=== PATIENT | female | born 1965 | race Caucasian/White ===

== ENCOUNTER 2024-05-07 14:41 | Observation (INO) | payer BC, SELFPAY ==
[2024-05-07] VITALS (7 sets, daily range): BP systolic 139–154; BP diastolic 77–87; PULSE 66–70; RESP 18–28; TEMP 36.5–37.1; O2SAT 90–93; BMI 37.8; BMI 37.2
--- NOTE | 2024-05-07 15:14 | ED_ITS ---
HPI - General Adult General Date Seen: 05/07/24 Chief complaint: Shortness of Breath/Dyspnea Stated complaint: Difficulty breathing Time Seen by Provider: 05/07/24 14:57 History of Present Illness HPI narrative: 59-year-old female presenting to the ER today with for shortness of breath. She is currently satting 96% on 1 L nasal cannula. According to records through [facility] link she has a past medical history including anxiety, depression, opiate dependency. She has a history of tobacco use (still smoking). She has a history of CHF, GERD, hypertension, spinal stenosis, opiate addiction and opiate use disorder (buying pills off the street) She had previously been living over the long-term in [place], [place]. Her regular primary care per provider is Dr. Wiseman in [place], [place]. She has a history of opiate addiction and apparently has been buying pills off the street. For the past 7 months she had been living with her sister, Luz. About 3 or 4 weeks ago she was kicked out of her sister's house because of her opiate use. She was homeless after that. Initially she says she was ?couch surfing? with family members. The patient's daughter says that for the 1st time in 5 years the patient contacted her daughter after she was kicked out. She had been estranged from her daughter for about 5 years. With her daughter's assistance, the patient has been able to find a new 1 bedroom apartment here in [place]. She moved in a few days ago. It sounds like the patient has been buying Suboxone off the street. She has been using Suboxone 8 mg sublingual tablets every day for the past couple of weeks to try to deal with her opiate cravings. They are working fairly well and she says she has not had any pills now in a few weeks. She is a smoker. She has a history of COPD, CHF, anxiety, depression. She has a dog, Dian, that she values. She does not want to leave her dog Dian. For the past 3 or 4 days she has been noticing increasing chest tightness, shortness of breath and a cough that is productive of some sputum(yellow/white. No blood). She has been getting increasingly short of breath. Also swelling in her legs. 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 She has been using her nebulizer many times per day for the past few days and is now out of nebs. She has also been using using her Spiriva many times per day thinking more Spiriva she uses, the better she would feel. No diarrhea. She has been constipated past couple of days. She has had a subjective fever. No vomiting. No abdominal pain. Related Data Home Medications ?Medication ?Instructions ?Recorded ?Confirmed aspirin 325 mg capsule 325 mg PO DAILY 05/07/24 05/07/24 atorvastatin 40 mg tablet (Lipitor) 40 mg PO DAILY 05/07/24 05/07/24 buspirone 10 mg tablet 10 mg PO TID 05/07/24 05/07/24 fluoxetine 20 mg capsule 20 mg PO DAILY 05/07/24 05/07/24 fluoxetine 40 mg capsule (Prozac) 40 mg PO DAILY 05/07/24 05/07/24 furosemide 20 mg tablet 20 mg PO DAILY 05/07/24 05/07/24 potassium chloride 20 mEq 20 meq PO DAILY 05/07/24 05/07/24 tablet,extended release(part/cryst) (Klor-Con M) propranolol 80 mg capsule,24 80 mg PO DAILY 05/07/24 05/07/24 hr,extended release Allergies Allergy/AdvReac Type Severity Reaction Status Date / Time No Known Drug Allergies Allergy Verified 05/07/24 15:05 [facility] Social History Smoking Status: Current every day smoker What tobacco products do you use: cigarettes Smoking packs per day: 0.2 Smoking cigarettes per day: 4.0 How often do you have a drink containing alcohol: never AUDIT-C Alcohol total score: 0 Non-prescribed substance use: denies use Exam Narrative: Exam Narrative: Primary Survey: A- patent. Speaking clearly. Phonation normal. She has some volitional stridorous breathing that resolved when I coached her about opening her airway B- breathing easily. Lung sounds clear and equal. She was placed on 1 L by nurses. I turned off her oxygen she maintained sats about 90-92% on room air. She does have coarse bilateral wheezes throughout all lung moody. C- no active bleeding. Blood pressure stable. Symmetric pulses and cap refill in 4 extremities. D- alert and oriented x3. GCS 15. No focal deficits. She is anxious Constitutional: Appears well-developed and well-nourished. Alert. Conversant. Non toxic. HENT: Head: Atraumatic. Nose: Nose normal. Mouth/Throat: Oral mucosa is clear and moist. no trismus. Pharynx normal. Tonsils symmetric. No tonsillar enlargement, erythema, or exudate. Eyes: Conjunctivae normal. EOM normal. Pupils equal, round, and reactive to light. No scleral icterus. Neck: Normal range of motion. Neck supple. No tracheal deviation present. Cardiovascular: Normal rate, regular rhythm. No gallop. No friction rub. No murmur heard. Symmetric radial artery pulses Pulmonary/Chest: She has increased work of breathing and is making some home wheezing noises from her upper airway check which I think are volitional or subconscious. With coaching they resolved. She is not in acute distress requiring BiPAP or immediate in today marti. She does have bilateral coarse wheezes in all lung moody that do not resolve you may clear upper upper airway. She has an occasional cough. She is producing small amounts of sputum that she is spitting into a tissue. Abdominal: Soft. Bowel sounds normal. No distension. No mass. No tenderness. No rebound. No guarding. No CVA tenderness Musculoskeletal: RUE: Normal range of motion. No tenderness. No deformity LUE: Normal range of motion. No tenderness. No deformity RLE: Normal range of motion. No edema. No tenderness. No deformity LLE: Normal range of motion. No edema. No tenderness. No deformity Lymph: No cervical adenopathy. Neurological: Alert and oriented to person, place, and time. Normal strength. CN II-VII intact. No sensory deficit. GCS eye subscore is 4. GCS verbal subscore is 5. GCS motor subscore is 6. Normal coordination Skin: Skin is warm and dry. No rash noted. No pallor. Normal capillary refill. Psychiatric: Anxious. Crying at times. She has a history of opiate addiction and is now buying Suboxone off the street to avoid buying pills. She was kicked out of her sister's house 3 weeks ago and had been homeless for 3 weeks but with her daughter's assistance she now has her own 1 bedroom apartment here in [place]. She has had to move from [place] so does not have any other doctors or medical care here. She is feeling depressed. She is anxious. She says she does not over life is worth anything. She is not suicidal or wanting to harm herself. She has a dog, named Dian, that she values. She does not want to go anywhere or be hospitalized if it means she needs to be apart from Dian. She has a history of opiate addiction and buying pills off the street for several years. She is now buying Suboxone sublingual films instead and she says she has not needed any pills now for about 3 weeks. Const: Vital Signs, click to edit/add: Vital Signs - 24 hr 05/07/24 14:52 05/07/24 17:36 Temperature 98.6 F Pulse Rate [Right Pulse Oximeter] 68 66 Respiratory Rate 18 Blood Pressure [Ri ght Upper Arm] 139/87 Pulse Oximetry 93 92 Oxygen Delivery Me thod Room Air Room Air Course Vital Signs Vital signs: Initial Vital Signs Temperature 98.6 F 05/07/24 14:52 Temperature Source Temporal Artery Scan 05/07/24 14:52 Pulse Rate 68 05/07/24 14:52 Respiratory Rate 18 05/07/24 14:52 Blood Pressure 139/87 05/07/24 14:52 Blood Pressure Mean 104 05/07/24 14:52 Blood Pressure Position Sitting 05/07/24 14:52 Pulse Oximetry 93 05/07/24 14:52 Oxygen Delivery Method Room Air 05/07/24 14:52 Vital Signs Temperature 98.6 F 05/07/24 14:52 Pulse Rate 68 05/07/24 14:52 Respiratory Rate 18 05/07/24 14:52 Blood Pressure 139/87 05/07/24 14:52 Pulse Oximetry 93 05/07/24 14:52 Oxygen Delivery Method Room Air 05/07/24 14:52 Temperature 98.6 F 05/07/24 14:52 Pulse Rate 66 05/07/24 17:36 Respiratory Rate 18 05/07/24 14:52 Blood Pressure 139/87 05/07/24 14:52 Pulse Oximetry 92 05/07/24 17:36 Oxygen Delivery Method Room Air 05/07/24 17:36 Medications Administered Medications: Discontinued Medications Generic Name Dose Route Start Last Admin Trade Name Freq PRN Reason Stop Dose Admin Albuterol/Ipratropium 1 neb 05/07/24 16:03 05/07/24 16:36 Iprat-Albut 0.5-2.5 Mg/3 Ml Neb IH 05/07/24 16:04 1 neb ONCE ONE Administration Prednisone 40 mg 05/07/24 16:03 05/07/24 16:36 Prednisone 20 Mg Tablet PO 05/07/24 16:04 40 mg ONCE ONE Administration Medical Decision Making MDM Narrative Medical decision making narrative: 59-year-old female with a complex presentation to the emergency department. 1. Pulmonary. She is here primarily because she has been short of breath with chest pain and coughing and wheezing for the past 3 days. She has been using excess doses of heard albuterol nebulizer and her Spiriva at home because she has been so short of breath. She is now out of those medications. She presents with shortness of breath and wheezing. She had 1 duo nebs with some improvement in her breath sounds and less coughing. Nonetheless should her sats remain borderline. She was satting in the low 90s on room air. She would desaturate when ambulating to the bathroom and back. VBG shows a normal pH of 7.36. PCO2 is somewhat elevated at 56 indicated that she is probably a chronic CO2 retainer. Chest x-ray is negative for any acute focal pneumonia. No signs of pulmonary edema on chest x-ray. No pneumothorax. With consideration for possible bacterial pneumonia we did do laboratory workup. White count normal. Venous lactate normal. Overall she remained pains low normal oxygen sats while at rest but desaturates with any exertion such as walking in the hallway to go to the bathroom. At this point I do think hospitalization is warranted. Patient also has significant psychosocial barriers to getting any of her meds refilled. She is apparently out of her DuoNebs and Spiriva and cannot get the refill because her insurance would cover them. 2. Cardiac. EKG shows sinus rhythm. No ischemia. Troponin negative. 3. Substance abuse. The patient does have a known history of opiate use disorder. She had been abusing street purchased oral opiate pills for the past several months. This is why her sister ?kicked her out? a few weeks ago. Her daughter has a history of opiate use disorder and has maintained sobriety on Suboxone. Her daughter encouraged the patient to get some Suboxone sublingual tablets that she bought over the street. She has been using 4 mg of Suboxone (half of a SL film) 3 times a day for the past couple of weeks and with that has been able to stay away from oral pills. I ordered Suboxone 8 mg/2 mg film months here in the ER. We did consult with social work. They met with the patient and offered outpatient resources for substance abuse and mental health counseling. Patient was this interested. I have concerned that unless the patient gets multifaceted therapy, which would include medications such as Suboxone to manage or UD, as well as outpatient counseling and therapy, she is a high likelihood of relapse. At this point I feel that the harm reduction warrants keeping her Suboxone. 4. Mental health. Patient also has a history of depression and anxiety. This is significant underlay of anxiety contributing to her other symptoms. She says that her life isn't worth much but she is not suicidal or homicidal at this point. 5. Renal/electrolytes. Kidney function normal. Potassium and sodium normal. 6. Social. This is a complex social economic dynamic here. It sounds like the patient is largely estranged from her daughter. She called on her daughter a few weeks ago for the 1st time in 5 years after the patient's sister kicked her out. Daughter says she is feeling overwhelmed with her mother's needs and really cannot care for her. 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 Apparently her monthly income would be above the typical limits where she would be able to receive county assistance. At least the patient would be able to afford her own reddened. We did consult with social media marketer to offer resources. The patient asked her daughter to step out during the social work visit which I think is probably detrimental to the patient's overall care. We need a coordinated approach. Patient is declining any resources for substance abuse or mental treatment. D/w hospitalist, Dr Gama, who will admit for treatment of COPD. Lab Data Labs: Lab Results 05/07/24 Range/Units 17:00 WBC 10.69 (4.50-11.00) K/uL RBC 5.00 (4.00-5.20) m/uL Hgb 14.7 (12.0-16.0) gm/dL Hct 45.2 (33.0-51.0) % MCV 90 (80-100) fL MCH 29 (26-34) pg MCHC 33 (32-36) gm/dL RDW Coeff of Paty 13.5 (11.5-15.5) % Plt Count 302 (140-440) K/uL Neut % (Auto) 72.9 H (42.0-72.0) % Lymph % (Auto) 20.4 (20-44) % [place] % (Auto) 5.2 (0.0-11.0) % Eos % (Auto) 1.2 (0.0-7.0) % Baso % (Auto) 0.2 (0.0-3.0) % Neut # (Auto) 7.80 H (1.7-7.0) K/uL Lymph # (Auto) 2.18 (0.90-2.90) K/uL [place] # (Auto) 0.60 (0.00-0.90) K/UL Eos # (Auto) 0.13 (0.00-0.50) K/uL Baso # (Auto) 0.02 (0.00-0.30) K/uL Abs Immat Gran (auto) 0.01 (0.00-0.30) K/uL Imm/Tot Granulo (auto) 0.1 % VBG pH 7.366 (7.32-7.43) VBG pCO2 56 H (40-50) mmHG VBG pO2 31.5 (25-47) mmHG VBG HCO3 32 H (21-28) mmol/L Sodium 135 (135-149) mmol/L Potassium 4.0 (3.6-5.1) mmol/L Chloride 98 (96-114) mmol/L Carbon Dioxide 32 (20-32) mmol/L Anion Gap 5 L (7-15) mEq/L BUN 3 L (7-30) mg/dL Creatinine 0.5 (0.5-1.5) mg/dL Estimated Creat Clear 90.29 Estimated GFR 107 ml/min Glucose 100 (60-115) mg/dL Lactate 1.1 (0.5-1.9) mmol/L Calcium 9.3 (8.4-10.6) mg/dL Troponin I 0.02 (0.01-0.04) ng/mL NT-Pro-B Natriuret Pep 2100 pg/mL Imaging Data Chest x-ray: Attestation: I have reviewed the pertinent imaging results. My impression: No acute infiltrate. No pneumothorax. No CHF Radiologist's impression: Impression No acute cardiopulmonary process ECG Data Attestation: I personally reviewed and interpreted this ECG as follows: Interpretation: Normal sinus rhythm Rate: 63 MT: 148 QRS axis: Normal axis. No pathologic Q-waves ST segment/T wave: No ST segment elevation or depression QTc: 456. Discharge Plan Discharge Clinical Impression: COPD exacerbation, Opiate abuse, continuous Patient Disposition: Admitted As Observation
--- NOTE | 2024-05-07 16:04 | CRLHL7_ITS ---
For Patients: As a result of the Cures Act, medical imaging exams and procedure reports are released immediately into your electronic medical record. You may view this report before your referring provider. If you have questions, please contact your health care provider. Indication cough, dsypnea, wheezing Technique Two view(s) of the chest Comparison None Findings The cardiomediastinal silhouette and pulmonary vasculature are unremarkable. There is no focal airspace consolidation, pleural effusion, or pneumothorax. No displaced fractures. Right humeral and lumbar spine hardware. Impression No acute cardiopulmonary process. Dictated by Aldo Braun MD @ 05/07/2024 4:46:59 PM (Electronically Signed)
[2024-05-07] MEDS: IPRAT-ALBUT 0.5-2.5 MG/3 ML NEB 1 NEB IH ×3 (16:36→23:48)
[2024-05-07] MEDS: predniSONE 20 MG TABLET 40 MG PO (16:36)
--- NOTE | 2024-05-07 16:36 | PC.SOCIAL ---
Addendum entered by Lucille Lynn LEAD INFRASTRUCTURE ARCHITECT 05/07/24 16:46: Pt states she is willing to stay overnight in the hospital if medically needed and would agree for her dog to be cared for by her daughter. However, she is hoping she can return home tonight instead of staying in the hospital. Original Note: Social work: Met with pt at the request of MD for information on available community resources for medical care, mental health support and substance treatment options. Initially, pt's dtr was in the room, but the daughter quickly excused herself and left and pt was agreeable to her leaving. Pt shared that she moved to [place] two weeks ago. She had been living in [place], [place] but lost her housing. Dtr lives in [place] and found her an apartment in [place]. Shared information on medical and mental health agencies serving [place]. Pt states she is only interested in finding a doctor in [place] to transfer her care to and does not need any mental health or chemical health treatment information. She shared that she was just here for medical and was not interested in any other assistance or resources. sheltered workshop worker requested RN include information on [facility] in discharge paperwork. Pt is aware social services analyst is available and how to contact social work if she has additional questions or resource needs.
[2024-05-07 17:05] LABS: HCO3 VBG 32 mmol/L (21-28); Lactate* 1.1 mmol/L (0.5-1.9); PCO2 VBG 56 mmHG (40-50); PO2 VBG 31.5 mmHG (25-47); pH VBG 7.366 (7.32-7.43)
[2024-05-07 17:09] LABS: Basophils Absolute Auto 0.02 K/uL (0.00-0.30); Basophils Percent Auto 0.2 % (0.0-3.0); Eosinophils Absolute Auto 0.13 K/uL (0.00-0.50); Eosinophils Percent Auto 1.2 % (0.0-7.0); Hematocrit 45.2 % (33.0-51.0); Hemoglobin* 14.7 gm/dL (12.0-16.0); Immature Granulocytes Abs Auto 0.01 K/uL (0.00-0.30); Immature Granulocytes Pct Auto 0.1 %; Lymphocytes Absolute Auto 2.18 K/uL (0.90-2.90); Lymphocytes Percent Auto 20.4 % (20-44); Mean Corpuscular HGB Conc 33 gm/dL (32-36); Mean Corpuscular Hemoglobin 29 pg (26-34); Mean Corpuscular Volume 90 fL (80-100); Monocytes Percent Auto 5.2 % (0.0-11.0); Neutrophils Percent Auto 72.9 % (42.0-72.0); Platelet Count* 302 K/uL (140-440); RDW Coefficient of Variation % 13.5 % (11.5-15.5); White Blood Count* 10.69 K/uL (4.50-11.00)
[2024-05-07 17:15] LABS: Slide Review Reflex No
[2024-05-07 17:21] LABS: Chloride* 98 mmol/L (96-114); Sodium* 135 mmol/L (135-149)
[2024-05-07 17:24] LABS: Anion Gap 5 mEq/L (7-15); Blood Urea Nitrogen* 3 mg/dL (7-30); Carbon Dioxide* 32 mmol/L (20-32); Creatinine* 0.5 mg/dL (0.5-1.5); Est. Creatinine Clearance* 90.29; Estimated Glomerular Filt Rate 107 ml/min; Glucose* 100 mg/dL (60-115)
[2024-05-07 17:25] LABS: Calcium* 9.3 mg/dL (8.4-10.6)
[2024-05-07 17:37] LABS: Troponin I* 0.02 ng/mL (0.01-0.04)
[2024-05-07 17:44] LABS: NT Pro B Type NatriureticPept* 2100 pg/mL
[2024-05-07] MEDS: BUPRENORPHINE-NALOX 8-2MG FILM 1 EACH SUBLINGUAL (18:07)
--- NOTE | 2024-05-07 18:22 | PM.IMHP1 ---
Hospitalist- H&P: HPI History of Present Illness Date Seen: 05/08/24 Chief complaint: Difficulty breathing Narrative: ADMISSION HISTORY AND PHYSICAL - HOSPITALIST Chief Complaint: LAZO, wheezing HPI: 59 y/o with PMH of opioid addiction, obesity, anxiety, tobacco dependence and COPD presents with increasing dyspnea on exertion, anxiety and air hunger/work of breathing. She is out of her Symbicort and albuterol in the last few days. No fever, hemoptysis, productive cough, rash, n/v/d. She feels she has been sick for about two weeks. Definitely worse in the last 24 hours. She summoned EMS to her apartment. Her personal life has been in crisis with hx of recent homelessness, moving from [place] to [facility] and recent move into her own apartment. Opioid addiction has been active for years (circa 2003) and is currently two weeks into active remission where she is buying street buprenorphine. She still smokes. She is financially stressed and socially isolated. ER COURSE: PO prednisone, CXR, labs, neb and oxygen titration. Initially in the mid 80's on RA. [facility] medicine was asked to admit for acute hypoxic resp failure secondary to a COPD exacerbation. CODE STATUS: FULL CODE EMERGENCY CONTACT PLAN: Primary Contact Name Jami Goldstein Rel To Pat Daughter Cell I've updated the PFSH, medications and allergies in the Expanse tabs. INVESTIGATIONS: LABS/MICRO/ECG/IMAGING Afebrile. Blood pressure 139/87. Pulse 66. Respiratory rate 18. Pulse ox has been 92-93% on 1-2 L. Weight 89.3kg CBC reflects a normal white blood cell count, 10.7. Normal hemoglobin at 14.7. Platelets at 302. Blood gas reveals a normal pH at 7.366, mild bump in her pCO2 of 56. Normal chemistries. Normal electrolytes. Normal renal function. Normal lactate. Troponin undetectable. BNP 2100, a previous BNP is 1153 from October of 2023 found in [facility]. Echo done in October of 2023 Final Impressions: 1. Normal left ventricular size, mildly increased wall thickness, normal global systolic function, calculated EF of 64 %. 2. Mildly enlarged left atrium. 3. The aortic valve is trileaflet and sclerotic, no stenosis and no regurgitation. 4. The mitral valve is normal, mild mitral regurgitation. 5. The inferior vena cava is normal sized, respiratory size variation greater than 50%. A1c 8.5 drawn in October of 2023. Normal glucose tonight, 100 2V CXR Negative REVIEW OF SYSTEMS: 12-point ROS completed with patient and negative unless otherwise stated in HPI or below. PHYSICAL EXAM: CONSTITUTIONAL: dramatic, forced wheeze, crying. nervous. VITAL SIGNS: see record. HEENT: Normocephalic, atraumatic. PERRL, EOMI, conjunctivae pink, no scleral icterus. Ears and nose externally normal. Pharynx normal. NECK: No JVD. No carotid bruit, no thyromegaly, no adenopathy. CHEST: rhonchi, scattered wheeze, forced stridor at times. HEART: S1 and S2 normal. No harsh murmurs. Edema MUSCULOSKELETAL: No gross joint deformity or swelling. NEURO: Cranial nerves intact. Grossly intact. No asymmetric findings. SKIN: No rashes, petechiae, concerning changes PSYCHIATRIC: anxious. perseverating. ADMIT TO MEDSURG: FLOOR CARE DVT: Lovenox GI: PO intake Time spent: Today I spent 75 minutes seeing the patient, discussing the patient with ER staff, reviewing Expanse and EPIC notes/diagnostics, discussing the care plan with our care time that includes social work, PT/OT, pharmacy, RT, intermediate and documenting my impressions and plan in the medical record. [facility] Medical History (Updated 05/07/24 @ 20:59 by Radhika Gama MD) Unspecified personality disorder ?F60.9 - Personality disorder, unspecified (ICD-10) Social isolation ?Z60.4 - Social exclusion and rejection (ICD-10) Financially insecure ?Z59.86 - Financial insecurity (ICD-10) Obesity ?E66.9 - Obesity, unspecified (ICD-10) Tobacco dependence ?F17.200 - Nicotine dependence, unspecified, uncomplicated (ICD-10) COPD (chronic obstructive pulmonary disease) ?J44.9 - Chronic obstructive pulmonary disease, unspecified (ICD-10) Opiate abuse, continuous ?F11.10 - Opioid abuse, uncomplicated (ICD-10) Chronic pain ?G89.29 - Other chronic pain (ICD-10) Chronic anxiety ?F41.9 - Anxiety disorder, unspecified (ICD-10) Type 2 diabetes mellitus ?E11.9 - Type 2 diabetes mellitus without complications (ICD-10) Surgical History (Updated 05/07/24 @ 19:06 by Radhika Gama MD) H/O laminectomy ?Z98.890 - Other specified postprocedural states (ICD-10) Hx of skin graft ?Z94.5 - Skin transplant status (ICD-10) History of knee surgery ?Z98.890 - Other specified postprocedural states (ICD-10) History of ankle surgery ?Z98.890 - Other specified postprocedural states (ICD-10) S/P laparoscopic supracervical hysterectomy ?Z90.711 - Acquired absence of uterus with remaining cervical stump (ICD-10) History of total knee arthroplasty ?Z96.659 - Presence of unspecified artificial knee joint (ICD-10) S/P appy ?Z90.49 - Acquired absence of other specified parts of digestive tract (ICD-10) Social History What is your current living situation?: I presently have a place to live Problems where you live: no known problems Problems where you live details: NA In the past 12 months, utilities in danger of being shut off: no In past 12 months, lack of transportation kept you from medical appts, meetings, work, or getting things needed for daily living: yes In the past 12 mos, have been you worried that your food would run out before you had money to buy more?: never true In the past 12 mos, the food you bought just didn't last and you didn't have money to buy more?: never true Highest level of school completed/degree received: GED or equivalent Smoking Status: Former smoker What tobacco products do you use: cigarettes Smoking packs per day: 0.2 Smoking cigarettes per day: 4.0 Smoking quit date/years: <= 15 years ago Second hand tobacco smoke exposure: No How often do you have a drink containing alcohol: never AUDIT-C Alcohol total score: 0 Non-prescribed substance use: other Non-prescribed substance use details: suboxone Caffeine: No How often does anyone, including family, friends and others, physically hurt you: never How often does anyone, including family, friends and others, insult or talk down to you: never How often does anyone, including family, friends and others, threaten you with harm: never How often does anyone, including family, friends and others, scream or curse at you: never service: No Meds Home Medications and Allergies Home Medications ?Medication ?Instructions ?Recorded ?Confirmed ?Type aspirin 325 mg capsule 325 mg PO DAILY 05/07/24 05/07/24 History atorvastatin 40 mg tablet (Lipitor) 40 mg PO DAILY 05/07/24 05/07/24 History buspirone 10 mg tablet 10 mg PO TID 05/07/24 05/07/24 History fluoxetine 20 mg capsule 20 mg PO DAILY 05/07/24 05/07/24 History fluoxetine 40 mg capsule (Prozac) 40 mg PO DAILY 05/07/24 05/07/24 History furosemide 20 mg tablet 20 mg PO DAILY 05/07/24 05/07/24 History potassium chloride 20 mEq 20 meq PO DAILY 05/07/24 05/07/24 History tablet,extended release(part/cryst) (Klor-Con M) propranolol 80 mg capsule,24 80 mg PO DAILY 05/07/24 05/07/24 History hr,extended release Allergies Allergy/AdvReac Type Severity Reaction Status Date / Time fentanyl Allergy Severe Anaphylaxis Verified 05/07/24 21:58 lidocaine Allergy Severe Anaphylaxis Verified 05/07/24 21:58 naproxen Allergy Unknown Verified 05/07/24 21:58 Penicillins Allergy Unknown Verified 05/07/24 21:58 Sulfa (Sulfonamide Allergy Unknown Verified 05/07/24 21:58 Antibiotics) adhesive Allergy Hives Verified 05/07/24 21:58 codeine Allergy Verified 05/07/24 21:58 NSAIDS (Non-Steroidal Allergy Verified 05/07/24 21:58 Anti-Inflamma Exam Const: Vital Signs, click to edit/add: Vital Signs - 24 hr 05/07/24 14:52 05/07/24 17:36 Temperature 98.6 F Pulse Rate [Right Pulse Oximeter] 68 66 Respiratory Rate 18 Blood Pressure [Ri ght Upper Arm] 139/87 Pulse Oximetry 93 92 Oxygen Delivery Me thod Room Air Room Air Hospitalist - H&P: Result Labs Labs: Short CBC 05/07/24 Range/Units 17:00 WBC 10.69 (4.50-11.00) K/uL Hgb 14.7 (12.0-16.0) gm/dL Hct 45.2 (33.0-51.0) % Plt Count 302 (140-440) K/uL BMP 05/07/24 17:00 Sodium 135 Potassium 4.0 Chloride 98 Carbon Dioxide 32 BUN 3 L Creatinine 0.5 Glucose 100 Calcium 9.3 Cardiac Enzymes 05/07/24 Range/Units 17:00 Troponin I 0.02 (0.01-0.04) ng/mL Assessment and Plan Assessment and plan (1) COPD exacerbation: Problem comment: -CXR clear. procalcitonin normal. CRP mildly elevated. hypoxic/anxious. requiring 1-2L to stay >90%, desaturations with any activity to mid 80's. -PO prednisone 40mg given in the ED - will continue with 40mg daily -budesonide nebs, duonebs, albuterol all ordered -aerobika, IS, RT consult (Dominic evaluted in the ED) -Doxy to cover occult infection -tobacco cessation discussed; nicotine patch placed Status: Acute (2) Opiate abuse, continuous: Problem comment: - pt has oxycodone addiction for years. recently started buying some Suboxone off the streets 4mg SL TID. She was given 8mg in the ED, I've ordered 4mg BID -guest services officer to help with services or rehab placement -vistaril for anxiety; withdrawal if noted Status: Acute (3) Type 2 diabetes mellitus: Problem comment: -A1C was 8+in 11/22, tonight 6.2 -accuchecks and SSI (given steroid prescription) Status: Acute (4) Tobacco dependence: Problem comment: -nicotine replacement patch ordered, 14mcg Status: Acute (5) Chronic anxiety: Problem comment: -continue Prozac and buspar -prn vistaril Status: Acute (6) Chronic pain: Problem comment: -non-opioid methods; scheduled Tylenol, lidoderm if requested, ice -PT/OT ordered -suboxone ordered Status: Acute (7) Financially insecure: Problem comment: -SW consulted Status: Acute (8) Social isolation: Problem comment: -SW consulted Status: Acute (9) Unspecified personality disorder: Problem comment: -borderline/hysteria likely Status: Acute (10) Obesity: Problem comment: -lifestyle changes needed. Status: Acute
--- NOTE | 2024-05-07 18:58 | RESP.RT ---
Patient seen in ED. She explained that she went through what she thinks was 3 months of inhalers and nebs in 12 days. When she is relaxed and calm she SATs 90-96% on room air, however when she is has high anxiety she is able to produce a loud expiratory wheeze and SATs decrease. These both improve when she is interactive and calm.
[2024-05-07] MEDS: NICOTINE 14 mg PATCH 1 PATCH TRANSDERMA (19:39)
[2024-05-07] MEDS: hydrOXYzine pamoate 25 MG CAPSULE 50 MG PO (19:39)
[2024-05-07 20:07] LABS: Hemoglobin A1C* 6.2 % (0-5.6)
[2024-05-07 20:07] LABS: Appearance Urine Clear (Clear); Bilirubin Urine Negative (Negative); Blood Urine Negative (Negative); Color Urine Yellow (Yellow); Glucose Urine Negative (Negative); Ketones Urine Negative (Negative); Leukocyte Esterase Urine Negative (Negative); Nitrite Urine Negative (Negative); Protein Urine Negative (Negative); Urobilinogen Urine 0.2 (0.2-1.0); pH Urine 6.5 (5.0-8.5)
[2024-05-07 20:09] LABS: C Reactive Protein* 2.9 mg/dL (0.5-1.0)
[2024-05-07 20:18] LABS: RBC Urine 0-2 (0-2); Squamous Epithelial Cell Urine Few (None-Few); WBC Urine 0-2 (0-5)
[2024-05-07 20:24] LABS: Procalcitonin* 0.06 ng/mL (<0.50)
[2024-05-07 20:32] LABS: Amphetamine Screen Urine Negative (Negative); Barbiturate Screen Urine Negative (Negative); Benzodiazepines Screen Urine POSITIVE (Negative); Cannabinoid Screen Urine Negative (Negative); Cocaine Screen Urine Negative (Negative); Methadone Screen Urine Negative (Negative); Methamphetamines Screen Urine Negative (Negative); Opiate Screen Urine Negative (Negative); Oxycodone Screen Urine Negative (Negative); Phencyclidine Screen Urine Negative (Negative); Tricyclic Antidepressant Urine Negative (Negative)
[2024-05-07] MEDS: DOXYCYCLINE HYCLATE 100 MG PO (20:40)
[2024-05-07] MEDS: SODIUM CHLORIDE 0.9 % (FLUSH) 10 ML SYRINGE 5 ML IVF (20:40)
[2024-05-07] MEDS: BUDESONIDE 0.5 MG/2ML NEB NEB (20:40)
[2024-05-07] MEDS: BUSPIRONE 10 MG TABLET PO (20:40)
[2024-05-07] MEDS: ENOXAPARIN 40 MG/0.4 ML INJ SUBCUT (20:40)
[2024-05-07 20:43] LABS: PCR FLU A Negative PCR FLU A (Negative); PCR FLU B Negative PCR FLU B (Negative); PCR RSV Negative PCR RSV (Negative); SARS PCR* Negative SARS-CoV-2 (Negative)
--- NOTE | 2024-05-07 22:15 | PC.NURSE ---
End of shift [id number]: Pleasant and cooperative with cares, patient reporting increased anxiety due to feeling short of breath. Patient received one time dose of hydroxyzine, patients behaviors indicate medication was effective. O2 92% on room air, sats do drop to low 80's with ambulation but rebounds well with rest and breathing exercises. Lung sounds with expiratory wheezing throughout, dry harsh cough noted. Moderate relief of SOB with nebulizers.
[2024-05-08 01:36] LABS: Amphetamine Screen Urine Negative (Negative); Barbiturate Screen Urine Negative (Negative); Benzodiazepines Screen Urine POSITIVE (Negative); Cannabinoid Screen Urine Negative (Negative); Cocaine Screen Urine Negative (Negative); Methadone Screen Urine Negative (Negative); Methamphetamines Screen Urine Negative (Negative); Opiate Screen Urine Negative (Negative); Oxycodone Screen Urine Negative (Negative); Phencyclidine Screen Urine Negative (Negative); Tricyclic Antidepressant Urine Negative (Negative)
[2024-05-08] MEDS: hydrOXYzine pamoate 25 MG CAPSULE PO ×2 (02:15→13:58)
[2024-05-08 03:00] VITALS: BP 146/76; PULSE 69; RESP 20; TEMP 36.6; O2SAT 91
[2024-05-08] MEDS: IPRAT-ALBUT 0.5-2.5 MG/3 ML NEB 1 NEB IH ×4 (03:55→13:52)
--- NOTE | 2024-05-08 06:35 | PC.NURSE ---
End of shift note [id number]: Pt noted to be alert & oriented x 4. She has been continent of bladder. Pt has been denying pain when asked. She has been transferring/ambulating with SBA. Pt has been afebrile throughout the shift and is noted to have expiratory wheezing upon auscultation. Pt does have shortness of breath upon exertion due to hx of COPD. Nicotine patch in place to RUE. IV to L AC SL. O2 sat 93% and 91% on RA at rest. Pt requested one dose of PRN Hydroxyzine this shift for anxiety/insomnia. IS education provided with return demonstration completed. Bed alarm utilized as pt has not been using the call light despite education and encouragement provided.
[2024-05-08 06:42] LABS: HCO3 VBG 32 mmol/L (21-28); PCO2 VBG 46 mmHG (40-50); PO2 VBG 37.9 mmHG (25-47); pH VBG 7.447 (7.32-7.43)
[2024-05-08 06:53] LABS: Hematocrit 44.3 % (33.0-51.0); Hemoglobin* 14.7 gm/dL (12.0-16.0); Mean Corpuscular HGB Conc 33 gm/dL (32-36); Mean Corpuscular Hemoglobin 29 pg (26-34); Mean Corpuscular Volume 89 fL (80-100); Platelet Count* 304 K/uL (140-440); Slide Review Reflex No; White Blood Count* 7.36 K/uL (4.50-11.00)
[2024-05-08 07:00] VITALS: PULSE 61; RESP 20
[2024-05-08 07:12] LABS: Chloride* 98 mmol/L (96-114); Sodium* 135 mmol/L (135-149)
[2024-05-08 07:15] LABS: Anion Gap 6 mEq/L (7-15); Carbon Dioxide* 31 mmol/L (20-32); Creatinine* 0.5 mg/dL (0.5-1.5); Est. Creatinine Clearance* 90.29; Estimated Glomerular Filt Rate 107 ml/min
[2024-05-08 07:16] LABS: Blood Urea Nitrogen* 7 mg/dL (7-30); Calcium* 9.1 mg/dL (8.4-10.6); Glucose* 139 mg/dL (60-115)
[2024-05-08 07:18] LABS: C Reactive Protein* 3.1 mg/dL (0.5-1.0)
[2024-05-08] MEDS: FUROSEMIDE 20 MG TABLET PO (08:41)
[2024-05-08] MEDS: FLUOXETINE HCL 20 MG CAPSULE 60 MG PO (08:41)
[2024-05-08] MEDS: ATORVASTATIN CALCIUM 40 MG TABLET PO (08:41)
[2024-05-08] MEDS: predniSONE 20 MG TABLET 40 MG PO (08:41)
[2024-05-08] MEDS: POTASSIUM CHLORIDE 10 MEQ CAPSULE ER 20 MEQ PO (08:42)
[2024-05-08] MEDS: PROPRANOLOL ER 80 MG CAP PO (08:43)
[2024-05-08] MEDS: BUSPIRONE 10 MG TABLET PO ×2 (08:45→13:52)
[2024-05-08] MEDS: DOXYCYCLINE HYCLATE 100 MG PO (08:45)
[2024-05-08] MEDS: SODIUM CHLORIDE 0.9 % (FLUSH) 10 ML SYRINGE 5 ML IVF (08:45)
[2024-05-08] MEDS: buprenorphine HCL 2 MG TAB.SUBL 4 MG SUBLINGUAL (08:45)
[2024-05-08] MEDS: BUDESONIDE 0.5 MG/2ML NEB NEB (08:46)
[2024-05-08 08:54] VITALS: BP 143/69; PULSE 60; RESP 20; TEMP 36.6; O2SAT 89
[2024-05-08 11:15] VITALS: BP 157/94; PULSE 61; RESP 18; TEMP 36.8; O2SAT 90
[2024-05-08 11:49] VITALS: RESP 18; RESP 20; O2SAT 92
--- NOTE | 2024-05-08 12:40 | P.DS_ITS ---
DS: Providers Provider Time Seen by Provider: 11:45 Date Seen: 05/08/24 Date of admission: 05/07/24 18:22 Primary care physician: Not a Local Provider Admitting Clinician: Radhika Gama MD Consults: 05/07/24 18:19 Consult to Respiratory Therapy [CONS] Routine Comment: Reason(s) for RT Consult:: Consult Consult to Bank Courier [CONS] Routine Comment: Reason for Consult:: Social Service Consult 05/07/24 19:29 Consult to Bank Courier [CONS] Routine Comment: Reason for Consult:: Substance Abuse Screening Attending Physician on discharge: Maggie Paulson MD Date of Discharge: 05/08/24 DS: Diagnosis Discharge Diagnosis (1) COPD exacerbation: Status: Acute Problem details: -CXR clear. procalcitonin normal. CRP mildly elevated. hypoxic/anxious. requiring 1-2L to stay >90%, desaturations with any activity to mid 80's. -PO prednisone 40mg given in the ED - will continue with 40mg daily -budesonide nebs, duonebs, albuterol all ordered -aerobika, IS, RT consult (Dominic evaluted in the ED) -Doxy to cover occult infection -tobacco cessation discussed; nicotine patch placed (2) Opiate abuse, continuous: Status: Acute Problem details: - pt has oxycodone addiction for years. recently started buying some Suboxone off the streets 4mg SL TID. She was given 8mg in the ED, I've ordered 4mg BID -surgical services asst to help with services or rehab placement -vistaril for anxiety; withdrawal if noted (3) Tobacco dependence: Status: Acute Problem details: -nicotine replacement patch ordered, 14mcg (4) Type 2 diabetes mellitus: Status: Acute Problem details: -A1C was 8+in 11/22, yesterday 6.2% -she stopped metformin a few months ago. Will hold off on restarting it for now since hemoglobin A1c was okay. Follow-up with primary care provider earlier this week. (5) Chronic anxiety: Status: Acute Problem details: -continue Prozac and buspar -prn vistaril -journaling, meditation, and breathing techniques recommended. She is going to seek insurance and outpatient behavioral therapy. (6) Chronic pain: Status: Acute Problem details: -non-opioid methods; scheduled Tylenol, lidoderm if requested, ice -PT/OT ordered -suboxone ordered (7) Obesity: Status: Acute Problem details: -lifestyle changes needed. (8) Financially insecure: Status: Acute Problem details: -SW consulted (9) Social isolation: Status: Acute Problem details: -SW consulted (10) Unspecified personality disorder: Status: Acute Problem details: -borderline/hysteria likely (11) Acute respiratory distress: Status: Acute DS: Summary Hospital Course Hospital Course: This is a 59-year-old female a history of opioid addiction, obesity, anxiety, tobacco dependence, and COPD who presented through the ER for worsening dyspnea on exertion, anxiety and air hunger. She moved to [place] about 4 weeks ago. She continues to smoke. She tells me she does not have any insurance and is having difficulty with finances. She also has extreme anxiety and feels socially isolated and is having difficulty establishing with a psychologist because she does not have any insurance. She admits that she just needs to start working on all this and has ?created trouble for (herself)? by getting opioids off the street, which caused her sister to kick her out of her sister's house. She was admitted for COPD exacerbation with respiratory distress and was started on oxygen supplementation, satting 92-93% on 1-2 L nasal cannula oxygen. Overnight she was weaned off oxygen and has done very well. She continues to feel short of breath at times with anxiety attacks which she now recognizes and admits that they are linked. We spent about 15 minutes discussing breathing techniques, meditation, and journaling. I have asked her to establish with a therapist who can help her with anxiety and addiction. She is also going to establish with a primary care provider either Friday or Friday. She is feeling ready to go home today and I see that her medical necessity for admission, being respiratory distress, has resolved and her COPD exacerbation is improving. She said she still has albuterol inhaler at home, but no Symbicort at this time. She is going to follow-up with her primary care provider on Friday or Friday and review this needs to be ordered, in the meantime she will be on oral predn isone. Time Spent with Patient Time attestation: Total time spent providing and/or coordinating discharge services: Exam Narrative: Exam Narrative: General: Anxious, tearful. Calms with conversation. Awake, alert, oriented x3. No pallor. No jaundice. Oropharynx: Clear. Mucous membranes moist. Cardiovascular: Regular rate and rhythm. No murmurs, gallops, or rubs. Respiratory: Scattered wheezes and rhonchi. No crackles. Abdomen: Bowel sounds present. Soft, nondistended, nontender. Extremities: No pedal edema. Const: Vital Signs, click to edit/add: Vital Signs - 24 hr 05/07/24 14:52 05/07/24 17:36 05/07/24 18:30 Temperature 98.6 F 97.7 F Pulse Rate [Right Pulse Oximeter] 68 66 Pulse Rate [Right Radial] 70 Respiratory Rate 18 28 H Blood Pressure [Le ft Arm] 148/86 H Blood Pressure [Ri ght Upper Arm] 139/87 Pulse Oximetry 93 92 90 Oxygen Delivery Fl thod Room Air Room Air Room Air 05/07/24 18:36 05/07/24 18:36 05/07/24 18:36 Temperature 97.7 F Pulse Rate [Right Pulse Oximeter] Pulse Rate [Right Radial] 70 Respiratory Rate 28 H Blood Pressure [Le ft Arm] 148/86 H Blood Pressure [Ri ght Upper Arm] Pulse Oximetry 90 90 [facility] 05/07/24 18:43 05/07/24 23:00 05/07/24 23:46 Temperature 98.7 F Pulse Rate [Right Pulse Oximeter] Pulse Rate [Right Radial] 70 70 Respiratory Rate 20 20 20 Blood Pressure [Le ft Arm] 154/77 H Blood Pressure [Ri ght Upper Arm] Pulse Oximetry 92 93 [facility] Air 05/08/24 03:00 05/08/24 08:54 05/08/24 11:15 Temperature 97.9 F 97.8 F 98.3 F Pulse Rate [Right Pulse Oximeter] Pulse Rate [Right Radial] 69 60 61 Respiratory Rate 20 20 18 Blood Pressure [Le ft Arm] 146/76 H 143/69 H 157/94 H Blood Pressure [Ri ght Upper Arm] Pulse Oximetry 91 89 90 [facility] Air Room Air 05/08/24 11:49 05/08/24 11:49 Temperature Pulse Rate [Right Pulse Oximeter] Pulse Rate [Right Radial] Respiratory Rate 18 20 Blood Pressure [Le ft Arm] Blood Pressure [Ri ght Upper Arm] Pulse Oximetry 92 92 Oxygen Delivery Me thod Room Air Room Air DS: Data Data Completed and Pending Completed studies during hospitalization: 05/07/2024 5:24 p.m. EKG: Normal sinus rhythm, 73 beats per minute, normal EKG. 05/07/2024 7:28 p.m. EKG: Normal sinus rhythm with sinus arrhythmia, 66 beats per minute. Normal EKG. Ordering Physician: Facundo Pabon M.D. Date of Service: 05/07/24 Procedure(s): XR chest 2V Accession Number(s): [id number] cc: Facundo Pabon M.D.; Provider,Not a Local~ For Patients: As a result of the Century Cures Act, medical imaging exams and procedure reports are released immediately into your electronic medical record. You may view this report before your referring provider. If you have questions, please contact your health care provider. Indication cough, dsypnea, wheezing Technique Two view(s) of the chest Comparison None Findings The cardiomediastinal silhouette and pulmonary vasculature are unremarkable. There is no focal airspace consolidation, pleural effusion, or pneumothorax. No displaced fractures. Right humeral and lumbar spine hardware. Impression No acute cardiopulmonary process. Dictated by Aldo Braun MD @ 05/07/2024 4:46:59 PM (Electronically Signed) Labs on day of discharge: Labs from last 24 hours 05/08/24 05/08/24 05/07/24 06:19 01:15 18:35 WBC 7.36 RBC 5.00 Hgb 14.7 Hct 44.3 MCV 89 MCH 29 MCHC 33 RDW Coeff of Paty Plt Count 304 Neut % (Auto) Lymph % (Auto) [place] % (Auto) Eos % (Auto) Baso % (Auto) Neut # (Auto) Lymph # (Auto) [place] # (Auto) Eos # (Auto) Baso # (Auto) Abs Immat Gran (auto) Imm/Tot Granulo (auto) VBG pH 7.447 H VBG pCO2 46 VBG pO2 37.9 VBG HCO3 32 H Sodium 135 Potassium 4.0 Chloride 98 Carbon Dioxide 31 Anion Gap 6 L BUN 7 Creatinine 0.5 Estimated Creat Clear 90.29 Estimated GFR 107 Glucose 139 H Hemoglobin A1c Lactate Calcium 9.1 Troponin I C-Reactive Protein 3.1 H NT-Pro-B Natriuret Pep Procalcitonin TSH Urine Color Yellow Urine Appearance Clear Urine pH 6.5 Ur Specific [place] 1.010 Urine Protein Negative Urine Glucose (UA) Negative Urine Ketones Negative Urine Blood Negative Urine Nitrite Negative Urine Bilirubin Negative Urine Urobilinogen 0.2 Ur Leukocyte Esterase Negative Urine RBC 0-2 Urine WBC 0-2 Ur Squamous Epith Cells Few Urine Bacteria None Urine Opiates Screen Negative Negative Ur Oxycodone Screen Negative Negative Urine Methadone Screen Negative Negative Ur Barbiturates Screen Negative Negative U Tricyclic Antidepress Negative Negative Ur Phencyclidine Scrn Negative Negative Ur Amphetamines Screen Negative Negative U Methamphetamines Scrn Negative Negative U Benzodiazepines Scrn POSITIVE A POSITIVE A Urine Cocaine Screen Negative Negative U Marijuana (THC) Screen Negative Negative Ur Drug Screen Comment See Note See Note SARS-CoV-2 (PCR) Influenza Type A (PCR) Influenza Type B (PCR) RSV (PCR) Lab Acknowledgement 05/07/24 05/07/24 18:33 17:00 WBC 10.69 RBC 5.00 Hgb 14.7 Hct 45.2 MCV 90 MCH 29 MCHC 33 RDW Coeff of Paty 13.5 Plt Count 302 Neut % (Auto) 72.9 H Lymph % (Auto) 20.4 [place] % (Auto) 5.2 Eos % (Auto) 1.2 Baso % (Auto) 0.2 Neut # (Auto) 7.80 H Lymph # (Auto) 2.18 [place] # (Auto) 0.60 Eos # (Auto) 0.13 Baso # (Auto) 0.02 Abs Immat Gran (auto) 0.01 Imm/Tot Granulo (auto) 0.1 VBG pH 7.366 VBG pCO2 56 H VBG pO2 31.5 VBG HCO3 32 H Sodium 135 Potassium 4.0 Chloride 98 Carbon Dioxide 32 Anion Gap 5 L BUN 3 L Creatinine 0.5 Estimated Creat Clear 90.29 Estimated GFR 107 Glucose 100 Hemoglobin A1c 6.2 H Lactate 1.1 Calcium 9.3 Troponin I 0.02 C-Reactive Protein 2.9 H NT-Pro-B Natriuret Pep 2100 Procalcitonin 0.06 TSH 2.320 Urine Color Urine Appearance Urine pH Ur Specific [place] Urine Protein Urine Glucose (UA) Urine Ketones Urine Blood Urine Nitrite Urine Bilirubin Urine Urobilinogen Ur Leukocyte Esterase Urine RBC Urine WBC Ur Squamous Epith Cells Urine Bacteria Urine Opiates Screen Ur Oxycodone Screen Urine Methadone Screen Ur Barbiturates Screen U Tricyclic Antidepress Ur Phencyclidine Scrn Ur Amphetamines Screen U Methamphetamines Scrn U Benzodiazepines Scrn Urine Cocaine Screen U Marijuana (THC) Screen Ur Drug Screen Comment SARS-CoV-2 (PCR) Negative SARS-CoV-2 Influenza Type A (PCR) Negative PCR FLU A Influenza Type B (PCR) Negative PCR FLU B RSV (PCR) Negative PCR RSV Lab Acknowledgement Test Added Preliminary micro results at discharge 05/07/24 18:35 Urine Culture - Preliminary Urine,Clean Catch Culture in Progress Discharge Plan Discharge Disposition: Home, Self-Care Date of Admission: 05/07/24 18:22 Attending Provider on Discharge: Maggie Paulson Primary Care Provider: Provider,Not a Local Condition: Improved Anticipated Discharge Date/Time: 05/08/24 12:49 Discharge Medications: New prednisone 20 mg Tablet 40 mg PO DAILYWM 3 Days Qty: 6 0RF doxycycline hyclate 100 mg Tablet 100 mg PO BID 4 Days Qty: 8 0RF hydroxyzine pamoate 25 mg Capsule 25 mg PO Q4H PRN (Reason: anxiety) Qty: 30 0RF Continued furosemide 20 mg tablet 20 mg PO DAILY atorvastatin [Lipitor] 40 mg tablet 40 mg PO DAILY buspirone 10 mg tablet 10 mg PO TID potassium chloride [Klor-Con M20] 20 mEq tablet,ER particles/crystals 20 meq PO DAILY propranolol 80 mg capsule,extended release 24 hr 80 mg PO DAILY fluoxetine 20 mg capsule 60 mg PO DAILY aspirin 325 mg tablet 325 mg PO DAILY budesonide-formoterol [Breyna] 80-4.5 mcg/actuation HFA aerosol inhaler 2 inh inhalation BID Discharge Orders: Discharge Order (Routine); Ordered 05/08/24 Ordered By: Maggie Paulson Patient Education: Doxycycline (By mouth), Prednisone (By mouth), Hydroxyzine (By mouth), COPD (Chronic Obstructive Pulmonary Disease) (DC), Type 2 Diabetes in the Older Adult (DC) Additional Instructions: - Establish PCP - [facility] Friday or Friday. - Continue albuterol INH and ipratropium nebulizers as you have prescribed for you already at home prior to admission. - Do not drive while taking hydroxyzine. - Establish with a psychologist for anxiety and addictions. - For anxiety I also recommend that you journal and practice meditative and breathing exercises both at times when you are calm and when you are having anxiety. Activity Level: No Restrictions Discharge Diet: Regular Follow Up Appointments: Devonte Bell MD [Staff Physician] - 05/10/24 8:15 am ([facility] for follow up ) Provider,Not a Local [Primary Care Provider] - Forms: [employer] Info Instructions
--- NOTE | 2024-05-08 18:40 | PC.NURSE ---
SALINE LOCK DC'D. PATIENT REPORTED ANXIETY AND RECEIVED SCHEDULED BUSPAR AND PRN VISTARIL. DISCUSSED BREATHING TECHNIQUES AND MEDITATIVE PRACTICES TO ASSIST IN DECREASING ANXIETY. REVIEWED DC INSTRUCTIONS WITH PATIENT AND RETURNED BLACK BAG WITH HOME MEDICATIONS. PATIENT DC'D HOME VIA DAUGHTER.
== END 2024-05-08 16:02 | disposition home or self-care (01) ==
LOC: ED 18:03 → MEDSURG 18:22
PROVIDERS: Admitting Provider Family Medicine; Emergency Provider Emergency Medicine; Visit Provider Family Medicine
DX: J44.1 Chronic obstructive pulmonary disease with (acute) exacerbation (principal); R06.03 Acute respiratory distress; F11.10 Opioid abuse, uncomplicated; F17.200 Nicotine dependence, unspecified, uncomplicated; E11.9 Type 2 diabetes mellitus without complications; F41.9 Anxiety disorder, unspecified; F32.A Depression, unspecified; G89.29 Other chronic pain; K21.9 Gastro-esophageal reflux disease without esophagitis; E66.9 Obesity, unspecified; Z68.36 Body mass index [BMI] 36.0-36.9, adult; Z59.86 Financial insecurity; Z60.4 Social exclusion and rejection; F60.9 Personality disorder, unspecified; Z86.79 Personal history of other diseases of the circulatory system; Z79.82 Long term (current) use of aspirin
CPT/HCPCS: 36415; 71046; 80048; 80306; 81001; 82803; 82962; 83036; 83605; 83880; 84145; 84443; 84484; 85025; 85027; 86140; 87086; 87631; 93005; 94640; 94761; 96372; 99284; 99285; J0571; A9270; G0378; J0574; J1650; J7512; J7626; S4990

== ENCOUNTER 2024-05-07 17:11 | Outpatient (CLI) | payer BC, SELFPAY | END 2024-05-07 17:12 | disposition home or self-care (01) | PROVIDERS: Visit Provider Emergency Medicine Emergency Medical Services | DX: R06.09 Other forms of dyspnea (principal) | CPT/HCPCS: A0425; A0427 ==

== ENCOUNTER 2024-07-08 17:05 | Outpatient (CLI) | payer BC, SELFPAY ==
--- OUTSIDE RECORDS SUMMARY | 2024-07-10 14:27 | XMS_ITS | Data Portability ---
Author Organization [facility] Address [address] [place] [address] [place] [address] Assessment No assessment recorded. Plan of Treatment Reminders Order Date Submit Date Provider Last Modified By Organization Details Last Modified Time Details Appointments MOUD RETURNING 2023 10:00A M Not available Not available Not available Lab drug screen, urine 2023 024 [facility] [place] [facility], [address] [place] [address], [phone], 05/31/2024 13:26:59 CMP, serum or plasma 2023 024 [facility], [address] [place] [address], [address], 06/12/2024 10:06:08 Referral mental health counselor referral 2023 024 [email or web address] Not available 06/02/2024 17:17:46 Procedures None recorded. Surgeries None recorded. Imaging None recorded. Medication Orders buprenorp isidra 8 mg-naloxo ne 2 mg sublingua l tablet 2023 024 [facility] [address], [address] [place] [address], [address], 05/31/2024 13:27:05 buprenorp isidra 8 mg-naloxo ne 2 mg sublingua l tablet 2023 024 [facility] [address] [employer], [address] [place] [address], [address], 06/14/2024 13:17:28 Patient TargetsNo targets recorded. Patient InstructionsNo instructions recorded. Reason for Referral Mental Health Counselor Refe rral for Opioid dependence, on agonist therapy Referring Physician: Jonelle Rivas, Family Medicine, Encounter Date: 05/31/2024 Results Created Date Observation Date Name Description Value Unit Range Abnormal Flag LastModifiedBy Organization Detail LastModifiedTime 05/31/20 24 05/31/2024 drug scree n, urine Amphetamines : negati ve Not Available [address], [address], 05/31/2024 12:40:03 05/31/20 24 05/31/2024 drug scree n, urine Cannabinoids : negati ve Not Available [address], [address], 05/31/2024 12:40:03 05/31/20 24 05/31/2024 drug scree n, urine Cocaine: negati ve Not Available [address], [address], 05/31/2024 12:40:03 05/31/20 24 05/31/2024 drug scree n, urine Opiates: negati ve Not Available [address], [address], 05/31/2024 12:40:03 05/31/20 24 05/31/2024 drug scree n, urine Phenocyclidi ne: negati ve Not Available [address], [address], 05/31/2024 12:40:03 05/31/20 24 05/31/2024 drug scree n, urine Barbiturates : negati ve Not Available [address], [address], 05/31/2024 12:40:03 05/31/20 24 05/31/2024 drug scree n, urine Benzodiazepi erma: negati ve Not Available [address] [place], [address], 05/31/2024 12:40:03 05/31/20 24 05/31/2024 drug scree n, urine Hallucinogen s: negati ve Not Available [address], [address], 05/31/2024 12:40:03 05/31/20 24 05/31/2024 drug scree n, urine TCA negati ve Not Available [address], [address], 05/31/2024 12:40:03 05/31/20 24 05/31/2024 drug scree n, urine Buprenorphin e positi ve Not Available [address], [address], 05/31/2024 12:40:03 Result Notes None recorded. Problems Name Status Onset Date Resolution Date Notes Provider Name and Address Organization Details Recorded Time Chronic obstructive pulmonary disease Active 05/31/20 24 [place], [address] , [facility] 05/31/2024 13:27:20 Hyperlipidemia Active 05/31/20 24 [place], [address] , [facility] 05/31/2024 13:27:36 Chronic pain Active 05/31/20 24 [place], [address] , [facility] 05/31/2024 13:27:45 Opioid dependence Active 05/31/20 24 [place], [address] , [facility] 05/31/2024 13:28:09 Problem Notes None recorded. [...] e 8 mg-naloxone [address] 1 tablet twice a day by sublingual route for 17 days, for OUD. 2023 active Not Available Not Available Not Avai lable Lasix active Not Available Not Availa ble [...] Updated DateTime 4 154.94 cm 35.4 kg/m2 98322.8 5 g 98 % 98 % 59 /min 113 mm[Hg] 69 mm[Hg] JOYCELYN Johnson [address] [place], [address] [place] [address] [employer] [facility] 4 12:05:58 Social History None recorded. Functional Status None recorded. Mental Status None recorded. Family History Nothing Reported. Medical History No medical history recorded. Gynecological HistoryNo gynecological history recorded. Obstetrics History GPAL:G 0 P 0 0 0 0 Past Encounters Encounter ID Performer Location Encounter Start Date Encounter Closed Date Diagnosis/Indication Diagnosis SNOMED-CT Code [id number] Jonelle Rivas [facility] [address] [place] [address] 05/31/2024 12:00:06 05/31/2024 14:04:32 Opioid dependence, on agonist therapy [id number] Jonelle Rivas [facility] [address] [place] [address] 06/14/2024 12:46:11 06/14/2024 13:56:46 Opioid dependence, on agonist therapy [id number] Health Concerns Section Related Observation LastModified by [...] as needed Multivitamin Ibuprofen prn Primary clinic: [facility], Dr Lemus Behavior health: None at this time; interested in MH counseling referral SH: - Living situation: living alone in apartment here in [place]. Has a dog. Moved recently. Was homeless for a short time after her sister kicked her out of her house -Supports: Friends/family (is not explicit). 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 Also occasional benzodiazepine. Says is not getting this currently JOYCELYN Johnson [address] [place] [address], [address], [facility] [place] - [facility] 05/31/2024 15:38:54 06/14/2024 text/html [...] 2/2 cost. Unfortunately was not able to lease picker the rx from [facility] b/c cost was $150. Has continued to [...] situation: living alone in apartment here in [place]. Has a dog. Moved recently. Was homeless for a short time after her sister kicked her out of her house -Supports: Friends/family (is not explicit). 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
--- OUTSIDE RECORDS SUMMARY | 2024-07-10 14:27 | XMS_ITS | Clinical Summary ---
Author Organization [facility] Address [place], [place] [address] Care Team Providers Care Acute Care Physical Therapist Name Role Phone Brian Pabon MD Unavailable [phone] Pcp, No Primary Care Provider Unavailabl e [...] per actuation) nasal solution (FLONASE) Inhale 1 [place] in the nostril(s). 08/07/2017 Active albuterol-ipratrop ium [...] mg, (PERCOCET 5-325) tablet (ED DC MED)Indications:Ac lenny exacerbation of chronic low back pain Take [...] abuse. Went through rehabilitation in 2012 at [facility]. 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, oral Hyperlipidemia 03/22/2003 Overview: Statin Encounters Date Type Department Care Team Description 05/21/2024 3:18 PM CDT - 05/21/2024 5:27 PM CDT Emergency [facility] [address] [place] [address] Nadia Bolaños PA COPD exacerbation (HC) (Primary Dx) Discharge Disposition: Home Self Care 05/21/2024 Travel from Last 3 Months Immunizations Name Administration Dates Next Due COVID-19 Vaccine Spikevax (M oderna 50mcg/0.5mL) 12YO+ [id number] Formula PF 10/27/2023 Influenza Virus, Unspecified 08/22/2017, [...] history exists Medical Devices Implanted Type Area Shipper And Receiving Device Identifier Shelf Expiration Date Model / Serial / Lot Milton 4.0cmx5.5mm Pre-Cut - [id number] Implanted:Qty: 1 on 05/31/2014 at [facility] Spine Implants Spine Medtronic Spine/Ortho [id number]# / / [id number] 30cc Mtf Chips Canclls Pouch [[id number]] Implanted:Qty: 1 on 05/31/2014 at [facility] Explanted:(Everardo irizarry not on file) Spine Musculoskeletal Transplant 09/21/2016 [id number]# / [id number] / Capstone 12x22 - [id number] Implanted:Qty: 1 on 05/31/2014 at [facility] Spine Medtronic Spine/Ortho [id number]# / / [id number] Set Screw 3dx - [id number] Implanted:Qty: 4 on 05/31/2014 at [facility] Spine Medtronic Spine/Ortho [id number]# / / Cnnctr Tsrh 3dx Sm - [id number] Implanted:Qty: 4 on 05/31/2014 at [facility] Spine Medtronic Spine/Ortho [id number]# / / Screw Osteogrip 6.5x40mm - [id number] Implanted:Qty: 4 on 05/31/2014 at [facility] Spine Medtronic Spine/Ortho [id number]# / / Milton 3.5cmx5.5mm Pre-Cut - [id number] Implanted:Qty: 1 on 05/31/2014 at [facility] Spine Medtronic Spine/Ortho [id number]# / / Procedures Procedure Name Priority Date/Time [...] - 11.0 thou/cu mm 05/21/2024 4:29 PM [facility] RED BLOOD COUNT 4.81 4.00 - 5.20 mil/cu mm 05/21/2024 4:29 PM [facility] HEMOGLOBIN 14.3 12.0 - 16.0 g/dL 05/21/2024 4:29 PM [facility] HEMATOCRIT 43.9 33.0 - 51.0 % 05/21/2024 4:29 PM [facility] MCV 91 80 - 100 fL 05/21/2024 4:29 PM [facility] MCH 29.7 26.0 - 34.0 pg 05/21/2024 4:29 PM [facility] MCHC 32.6 32.0 - 36.0 g/dL 05/21/2024 4:29 PM [facility] RDW 13.7 11.5 - 15.5 % 05/21/2024 4:29 PM [facility] PLATELET COUNT 290 140 - 440 thou/cu mm 05/21/2024 4:29 PM [facility] MPV 9.9 6.5 - 11.0 fL 05/21/2024 4:29 PM T [facility] % NEUT 49.3 % 05/21/2024 4:29 PM T [facility] % LYMPH 40.1 % 05/21/2024 4:29 PM T [facility] % MONO 6.5 % 05/21/2024 4:29 PM T [facility] % EOS 3.8 % 05/21/2024 4:29 PM T [facility] % BASO 0.3 % 05/21/2024 4:29 PM T [facility] ABSOLUTE NEUTROPHILS 3.8 1.7 - 7.0 thou/cu mm 05/21/2024 4:29 PM T [facility] ABSOLUTE LYMPHOCYTES 3.1(H) 0.9 - 2.9 thou/cu mm 05/21/2024 4:29 PM T [facility] ABSOLUTE MONOCYTES 0.5 <0.9 thou/cu mm 05/21/2024 4:29 PM T [facility] ABSOLUTE EOSINOPHILS 0.3 <0.5 thou/cu mm 05/21/2024 4:29 PM [facility] ABSOLUTE BASOPHILS 0.0 <0.3 thou/cu mm 05/21/2024 4:29 PM [facility] Blood BLOOD SPECIMEN / Unknown Venipuncture / Unknown 05/21/2024 4:22 PM CDT 05/21/2024 4:25 PM CDT Nadia BAUTISTA HEMATOLOGY [facility] [address] [place] [address] * LACTATE VENOUS (05/21/2024 4:22 PM CDT) LACTATE,VENOUS 0.8 0.5 - 2.0 mmol/L 05/21/2024 4:48 PM CDT [facility] Blood BLOOD SPECIMEN / Unknown Venipuncture / Unknown 05/21/2024 4:22 PM CDT 05/21/2024 4:25 PM CDT Nadia BAUTISTA CHEMISTRY [facility] [address] [facility] [place] [address] * (ABNORMAL) BASIC METABOLIC PANEL (05/21/2024 4:22 PM CDT) SODIUM 139 136 - 145 mmol/L 05/21/2024 4:49 PM T [facility] POTASSIUM 4.4 3.5 - 5.1 mmol/L 05/21/2024 4:49 PM [facility] CHLORIDE 101 98 - 107 mmol/L 05/21/2024 4:49 PM [facility] CO2,TOTAL 28 22 - 29 mmol/L 05/21/2024 4:49 PM [facility] ANION GAP 10 5 - 18 05/21/2024 4:49 PM [facility] GLUCOSE 95 70 - 99 mg/dL 05/21/2024 4:49 PM [facility] CALCIUM 9.6 8.8 - 10.2 mg/dL 05/21/2024 4:49 PM [facility] BUN 11 8 - 23 mg/dL 05/21/2024 4:49 PM [facility] CREATININE 1.04(H) 0.50 - 0.90 mg/dL 05/21/2024 4:49 PM [facility] BUN/CREAT RATIO 11 10 - 20 4:49 PM [facility] eGFR 62(L) >90 mL/min/1.7 3m2 05/21/2024 4:49 PM [facility] Comment:As of 2022, eG FR is calculated by the CKD-EPI creatinine equation without race adjustment. ??eGFR can be influenced by muscle mass, exercise, and diet. ??The reported eGFR is an estimation only and is only applicable if the renal function is stable. Blood BLOOD SPECIMEN / Unknown Venipuncture / Unknown 05/21/2024 4:22 PM CDT 05/21/2024 4:25 PM CDT Nadia BAUTISTA CHEMISTRY [facility] [address] [place] [address] from Last 3 Months Advance Directives * [...] 7:13 AM 06/05/2014 2:03 PM Care Teams Acute Care Physical Therapist Relationship Specialty Start Date End Date Pcp, No . PCP - General 05/19/19 Brian Pabon MD [address] [place] [address] 08/06/11
--- OUTSIDE RECORDS SUMMARY | 2024-07-10 14:28 | XMS_ITS | Continuity of Care Document ---
Author Organization [place] [facility] Address [address] [place] [address] Assessment No assessment recorded. Plan of Treatment Reminders Order Date Submit Date Provider Last Modified By Organization Details Last Modified Time Details Appointments MOUD RETURNING 2023 10:00A M Not available Not available Not available Lab drug screen, urine 2023 024 helen [place] [facility], [address] [place] [address], [address], 05/31/2024 13:26:59 CMP, serum or plasma 2023 024 [facility], [address] [place] [address], [address], 06/12/2024 10:06:08 Referral mental health counselor referral 2023 024 Not available 06/02/2024 17:17:46 Procedures None recorded. Surgeries None recorded. Imaging None recorded. Medication Orders buprenorp isidra 8 mg-naloxo ne 2 mg sublingua l tablet 2023 024 [facility] [address], [address], 05/31/2024 13:27:05 Patient TargetsNo targets recorded. Patient InstructionsNo instructions recorded. Reason for Referral Mental Health Counselor Refe rral for Opioid dependence, on agonist therapy Referring Physician: Jonelle Rivas, Family Medicine, Encounter Date: 05/31/2024 Results Created Date Observation Date Name Description Value Unit Range Abnormal Flag LastModifiedBy Organization Detail LastModifiedTime 05/31/2005/31/2024 drug scree n, urine Amphetamines : negati ve Not Available [address], [address], 05/31/2024 12:40:03 05/31/20 24 05/31/2024 drug scree n, urine Cannabinoids : negati ve Not Available [address], [address], 05/31/2024 12:40:03 05/31/20 24 05/31/2024 drug scree n, urine Cocaine: negati ve Not Available [address], [address], 05/31/2024 12:40:03 05/31/20 24 05/31/2024 drug scree n, urine Opiates: negati ve Not Available [address], [address], 05/31/2024 12:40:03 05/31/20 24 05/31/2024 drug scree n, urine Phenocyclidi ne: negati ve Not Available [address], [address], 05/31/2024 12:40:03 05/31/20 24 05/31/2024 drug scree n, urine Barbiturates : negati ve Not Available [address], [address], 05/31/2024 12:40:03 05/31/20 24 05/31/2024 drug scree n, urine Benzodiazepi erma: negati ve Not Available [address], [address], 05/31/2024 12:40:03 05/31/20 24 05/31/2024 drug scree n, urine Hallucinogen s: negati ve Not Available [address], [address], 05/31/2024 12:40:03 05/31/20 24 05/31/2024 drug scree n, urine TCA negati ve Not Available [address], [address], 05/31/2024 12:40:03 05/31/20 24 05/31/2024 drug scree n, urine Buprenorphin e positi ve Not Available [address], [address], 05/31/2024 12:40:03 Result Notes None recorded. Problems Name Status Onset Date Resolution Date Notes Provider Name and Address Organization Details Recorded Time Chronic obstructive pulmonary disease Active 05/31/20 24 [place], [address] , [facility] [employer] 05/31/2024 13:27:20 Hyperlipidemia Active 05/31/20 [address] [place] [address], [address] , [facility] [employer] 05/31/2024 13:27:36 Chronic pain Active 05/31/20 [address] [place] [address], [address] , [facility] [employer] [facility] 05/31/2024 13:27:45 Opioid dependence Active 05/31/20 24 JOYCELNY Johnson [address] [place] [address], [address] , [facility] [employer] 05/31/2024 13:28:09 Problem Notes None recorded. Medical [...] and Address Organization Details Last Updated DateTime 154.94 cm 35.4 kg/m2 72451.8 5 g 98 % 98 % 59 /min 113 mm[Hg] 69 mm[Hg] JOYCELYN Johnson [address] [place] [address], [address] [place], [place] - [facility] [facility] 12:05:58 Social History None recorded. Functional Status None recorded. Mental Status None recorded. Family History Nothing Reported. Medical History No medical history recorded. Gynecological HistoryNo gynecological history recorded. Obstetrics History GPAL:G 0 P 0 0 0 0 Past Encounters Encounter ID Performer Location Encounter Start Date Encounter Closed Date Diagnosis/Indication Diagnosis SNOMED-CT Code [id number] JOYCELYN Johnson [facility] [facility] [address] [place] [address] 05/31/2024 12:00:06 05/31/2024 14:04:32 Opioid dependence, on agonist therapy [id number] Health Concerns Section Related Observation LastModified by [...] as needed Multivitamin Ibuprofen prn Primary clinic: [facility], Dr Lemus Behavior health: None at this time; interested in MH counseling referral SH: - Living situation: living alone in apartment here in [place]. Has a dog. Moved recently. Was homeless for a short time after her sister kicked her out of her house -Supports: Friends/family (is not explicit). 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 Also occasional benzodiazepine. Says is not getting this currently JOYCELYN Johnson [address] [place] [address], [address], [facility] - [facility] 05/31/2024 15:38:54 OBGyn Episode No OBEpisode recorded.
--- OUTSIDE RECORDS SUMMARY | 2024-07-10 14:28 | XMS_ITS | Continuity of Care Document ---
Author Organization [facility] [place] [facility] Address [address] [place] [address] Assessment No assessment recorded. Plan of Treatment [...] sublingua l tablet 2023 024 [facility] [id number] [employer], [address] [facility] [address], [place], [address], 06/14/2024 13:17:28 Patient TargetsNo targets recorded. Patient InstructionsNo instructions recorded. Reason for Referral Mental Health Counselor Refe rral for Opioid dependence, on agonist therapy Referring Physician: Jonelle Rivas, Family Medicine, Encounter Date: 05/31/2024 Problems Name Status Onset Date Resolution Date Notes Provider Name and Address Organization Details Recorded Time Chronic obstructive pulmonary disease Active 05/31/20 24 JOYCELYN Johnson [address] [place], [address] , [facility] [employer] 05/31/2024 13:27:20 Hyperlipidemia Active 05/31/20 24 JOYCELYN Johnson [address] [place], [address] , [facility] [employer] 05/31/2024 13:27:36 Chronic pain Active 05/31/20 24 JOYCELYN Johnson [address] [place], [address] , [facility] [employer] 05/31/2024 13:27:45 Opioid dependence Active 05/31/20 24 JOYCELYN Johnson [facility] [place], [address] , [facility] 05/31/2024 13:28:09 Problem Notes None recorded. Medical [...] Encounter Closed Date Diagnosis/Indication Diagnosis SNOMED-CT Code [id number] JOYCELYN Johnson [place] [facility] [address] [place] [address] 05/31/2024 12:00:06 05/31/2024 14:04:32 Opioid dependence, on agonist therapy [id number] JOYCELYN Johnson [place] [facility] [address] [place] [address] 06/14/2024 12:46:11 06/14/2024 13:56:46 Opioid dependence, on agonist therapy [id number] Health Concerns Section Related Observation LastModified by [...] 2/2 cost. Unfortunately was not able to sheepskin pickler the rx from [facility] b/c cost was $150. Has continued to [...] situation: living alone in apartment here in [place]. Has a dog. Moved recently. Was homeless for a short time after her sister kicked her out of her house -Supports: Friends/family (is not explicit). 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
== END 2024-07-08 17:06 | disposition home or self-care (01) ==
LOC: AMB 07-10 14:24
PROVIDERS: Visit Provider Family Medicine
DX: S29.9XXA Unspecified injury of thorax, initial encounter (principal); W18.30XA Fall on same level, unspecified, initial encounter; Z91.81 History of falling; Y92.009 Unspecified place in unspecified non-institutional (private) residence as the place of occurrence of the external cause
CPT/HCPCS: A0425; A0427

== ENCOUNTER 2024-07-08 17:36 | Emergency (ER) | payer BC, SELFPAY ==
[2024-07-08] VITALS (21 sets, daily range): BP systolic 55–152; BP diastolic 44–92; PULSE 45–63; RESP 12–16; TEMP 36.6; O2SAT 87–96; BMI 34.0
--- NOTE | 2024-07-08 17:58 | ED.FALL ---
HPI - Fall General Time Seen by Provider: 17:59 Date Seen: 07/08/24 Chief Complaint: Fall/Minor Trauma Stated Complaint: back pain Time Seen by Provider: 07/08/24 17:58 Source: patient, EMS and RN notes reviewed Mode of arrival: EMS Limitations: no limitations History of Present Illness HPI Narrative: This 59-year-old female is brought in by EMS after falling at home. She states she had 2 falls today and 2nd time was unable to get up. She had a fall about a week ago and did not come in, had low back pain after that fall. She has no pain radiating into her legs. She states her muscles are twitching, she is falling and has it feels almost like her knees are buckling, like someone is coming up behind her and pushing her knees out. She does not have pain in her legs. From her fall today, has some neck pain. Did not hit head as far she knows, no loss of consciousness. She did get 50 mcg fentanyl IV EN route but she states it is not enough. She states she is not on any chronic pain medicines at home. Patient denies any difficulty breathing, O2 sats were mildly low presumably from her underlying COPD and IV narcotic use, nasal cannula oxygen was started. Patient states she is trying to quit smoking. She has not been sick with anything. Has no pain in her arms, no chest pain, no abdominal pain. She states the falls are happening because it feels like her knees are giving out. MD complaint: fall Related Data Home Medications ?Medication ?Instructions ?Recorded ?Confirmed atorvastatin 40 mg tablet (Lipitor) 40 mg PO DAILY 05/07/24 05/07/24 buspirone 10 mg tablet 10 mg PO TID 05/07/24 05/07/24 fluoxetine 20 mg capsule 60 mg PO DAILY 05/07/24 05/08/24 furosemide 20 mg tablet 20 mg PO DAILY 05/07/24 05/07/24 potassium chloride 20 mEq 20 meq PO DAILY 05/07/24 05/07/24 tablet,extended release(part/cryst) (Klor-Con M) propranolol 80 mg capsule,24 80 mg PO DAILY 05/07/24 05/07/24 hr,extended release aspirin 325 mg tablet 325 mg PO DAILY 05/08/24 05/08/24 budesonide-formoterol HFA 80 2 inh inhalation BID 05/08/24 05/08/24 mcg-4.5 mcg/actuation aerosol inhaler (Breyna) Previous Rx's ?Medication ?Instructions ?Recorded doxycycline hyclate 100 mg tablet 100 mg PO BID 4 days #8 tabs 05/08/24 hydroxyzine pamoate 25 mg capsule 25 mg PO Q4H PRN anxiety #30 caps 05/08/24 prednisone 20 mg tablet 40 mg (2 x 20 mg) PO DAILYWM 3 05/08/24 days #6 tabs propranolol 60 mg capsule,24 60 mg PO DAILY #30 caps 07/08/24 hr,extended release Allergies Allergy/AdvReac Type Severity Reaction Status Date / Time fentanyl Allergy Severe Anaphylaxis Verified 05/07/24 21:58 lidocaine Allergy Severe Anaphylaxis Verified 05/07/24 21:58 naproxen Allergy Unknown Verified 05/07/24 21:58 Penicillins Allergy Unknown Verified 05/07/24 21:58 Sulfa (Sulfonamide Allergy Unknown Verified 05/07/24 21:58 Antibiotics) adhesive Allergy Hives Verified 05/07/24 21:58 codeine Allergy Verified 05/07/24 21:58 NSAIDS (Non-Steroidal Allergy Verified 05/07/24 21:58 Anti-Inflamma Review of Systems Status of ROS: Reports: 6 or more systems reviewed and unremarkable except as noted in History and below [facility] Medical History Unspecified personality disorder ?F60.9 - Personality disorder, unspecified (ICD-10) Social isolation ?Z60.4 - Social exclusion and rejection (ICD-10) Financially insecure ?Z59.86 - Financial insecurity (ICD-10) Obesity ?E66.9 - Obesity, unspecified (ICD-10) Tobacco dependence ?F17.200 - Nicotine dependence, unspecified, uncomplicated (ICD-10) COPD (chronic obstructive pulmonary disease) ?J44.9 - Chronic obstructive pulmonary disease, unspecified (ICD-10) Opiate abuse, continuous ?F11.10 - Opioid abuse, uncomplicated (ICD-10) Chronic pain ?G89.29 - Other chronic pain (ICD-10) Chronic anxiety ?F41.9 - Anxiety disorder, unspecified (ICD-10) Type 2 diabetes mellitus ?E11.9 - Type 2 diabetes mellitus without complications (ICD-10) Surgical History H/O laminectomy ?Z98.890 - Other specified postprocedural states (ICD-10) Hx of skin graft ?Z94.5 - Skin transplant status (ICD-10) History of knee surgery ?Z98.890 - Other specified postprocedural states (ICD-10) History of ankle surgery ?Z98.890 - Other specified postprocedural states (ICD-10) S/P laparoscopic supracervical hysterectomy ?Z90.711 - Acquired absence of uterus with remaining cervical stump (ICD-10) History of total knee arthroplasty ?Z96.659 - Presence of unspecified artificial knee joint (ICD-10) S/P appy ?Z90.49 - Acquired absence of other specified parts of digestive tract (ICD-10) Social History What is your current living situation?: I presently have a place to live Problems where you live: no known problems Problems where you live details: NA In the past 12 months, utilities in danger of being shut off: no In past 12 months, lack of transportation kept you from medical appts, meetings, work, or getting things needed for daily living: yes In the past 12 mos, have been you worried that your food would run out before you had money to buy more?: never true In the past 12 mos, the food you bought just didn't last and you didn't have money to buy more?: never true Highest level of school completed/degree received: GED or equivalent Smoking Status: Current every day smoker What tobacco products do you use: cigarettes Smoking packs per day: 0.1 Smoking cigarettes per day: 2.0 Smoking quit date/years: <= 15 years ago Do you use any of these nicotine containing products: None Second hand tobacco smoke exposure: No How often do you have a drink containing alcohol: never AUDIT-C Alcohol total score: 0 Non-prescribed substance use: other Non-prescribed substance use details: suboxone Caffeine: No How often does anyone, including family, friends and others, physically hurt you: never How often does anyone, including family, friends and others, insult or talk down to you: never How often does anyone, including family, friends and others, threaten you with harm: never How often does anyone, including family, friends and others, scream or curse at you: never service: No Exam Const: Vital Signs, click to edit/add: Vital Signs - 24 hr 07/08/24 17:43 07/08/24 17:53 07/08/24 17:56 Temperature 98 F Pulse Rate 50 L 57 L Pulse Rate [Right Pulse Oximeter] 45 L Respiratory Rate 16 Blood Pressure 85/58 L Blood Pressure [Ri ght Upper Arm] 109/45 L Pulse Oximetry 92 94 95 Oxygen Delivery Me thod Nasal Cannula Nasal Cannula Nasal Cannula Oxygen Flow Rate 2 2 2 07/08/24 17:59 07/08/24 18:12 07/08/24 18:13 Temperature Pulse Rate 50 L 50 L 54 L Pulse Rate [Right Pulse Oximeter] Respiratory Rate Blood Pressure 55/44 L 85/52 L Blood Pressure [Ri ght Upper Arm] Pulse Oximetry 92 94 96 Oxygen Delivery Me thod Nasal Cannula Nasal Cannula Nasal Cannula Oxygen Flow Rate 2 2 2 07/08/24 18:15 07/08/24 18:26 07/08/24 18:30 Temperature Pulse Rate 49 L 49 L 50 L Pulse Rate [Right Pulse Oximeter] Respiratory Rate Blood Pressure 94/50 L Blood Pressure [Ri ght Upper Arm] Pulse Oximetry 95 93 93 Oxygen Delivery Me thod Nasal Cannula Nasal Cannula Nasal Cannula Oxygen Flow Rate 2 2 2 07/08/24 18:32 07/08/24 18:42 07/08/24 18:45 Temperature Pulse Rate 55 L 51 L 50 L Pulse Rate [Right Pulse Oximeter] Respiratory Rate Blood Pressure 81/66 L 103/50 L Blood Pressure [Ri ght Upper Arm] Pulse Oximetry 87 L 91 92 Oxygen Delivery Me thod Nasal Cannula Nasal Cannula Nasal Cannula Oxygen Flow Rate 2 2 1 07/08/24 19:16 07/08/24 19:22 07/08/24 19:23 Temperature Pulse Rate 55 L 49 L 53 L Pulse Rate [Right Pulse Oximeter] Respiratory Rate Blood Pressure 125/67 Blood Pressure [Ri ght Upper Arm] Pulse Oximetry 91 92 91 Oxygen Delivery Me thod Nasal Cannula Nasal Cannula Nasal Cannula Oxygen Flow Rate 1 1 1 07/08/24 19:30 07/08/24 19:32 07/08/24 19:42 Temperature Pulse Rate 51 L 51 L 48 L Pulse Rate [Right Pulse Oximeter] Respiratory Rate Blood Pressure 104/60 117/75 Blood Pressure [Ri ght Upper Arm] Pulse Oximetry 89 94 91 Oxygen Delivery Me thod Nasal Cannula Nasal Cannula Nasal Cannula Oxygen Flow Rate 1 1 1 Sangita is alert, interactive, no apparent distress but appears disheveled. Sclera clear, conjugate gaze, face atraumatic. No midline tenderness of her neck, does seem to mobilize her neck well, no cervical adenopathy, no thyromegaly masses or nodules. Lungs with distant breath sounds but no wheezing or crackles, no tachypnea. CV is regular but slow, no murmur heard. Abdomen is soft, nontender, nondistended. Strength is 5/5 and symmetric in both upper and lower extremities. No focal neurologic deficit noted, no lower extremity edema. She can lift each leg off the bed but does complain of low back pain when doing so. Documenting provider has reviewed patient's vital signs: yes Course Course ED Course: Reviewed with patient that her heart rate is low, this is likely contributed by a her 80 mg of propranolol daily. This dose may need to be lowered. We obviously need to rule out traumatic injury, will be doing head CT given she is complaining of neck pain, cervical spine imaging, lumbar spine imaging. Will get a portable chest x-ray as well. She will be on cardiac monitoring and pulse oximetry. Will get appropriate labs. Reevaluation(s) Time of Reevaluation #1: 19:43 Reevaluation #1: Patient requesting a DuoNeb and pain management from nursing staff. Have ordered morphine and a DuoNeb for her. She does have known COPD, was not having any acute issues but does use baseline DuoNebs. Awaiting her imaging to be read. Time of Reevaluation #2: 19:52 Reevaluation #2: Did review with patient that she has acute mild L1 and L2 superior endplate compression fractures. She does think that she would be able to go home with pain management. Have specifically discussed with her that I would typically use oxycodone, she has used this in the past but there has been chronic use and potential addiction issues. She states that she does not believe that will be a problem again. She understands that I can only give her a small amount of pain pills, she is going to half to talk to her clinic tomorrow to be able to get enough pain management through the weekend. We cannot provide that for her. She does not think she needs hospitalization for pain management. Did also review with her her bradycardia in my recommendation to diminish her propranolol. She stated she could just hold it for few days. Reviewed with her that that is not what we need to do, recommend that we send in a new prescription for a lower dosage. She is agreeable to this. Did send 8 tablets of 5 mg oxycodone from [facility]. Vital Signs Vital signs: Initial Vital Signs Temperature 98 F 07/08/24 17:43 Temperature Source Temporal Artery Scan 07/08/24 17:43 Pulse Rate 45 L 07/08/24 17:43 Pulse Rhythm Regular 07/08/24 17:43 Pulse Strength 3+ Normal 07/08/24 17:43 Respiratory Rate 16 07/08/24 17:43 Blood Pressure 109/45 L 07/08/24 17:43 Blood Pressure Mean 66 L 07/08/24 17:43 Blood Pressure Position High-Fowlers 07/08/24 17:43 Pulse Oximetry 92 07/08/24 17:43 Oxygen Delivery Method Nasal Cannula 07/08/24 17:43 Oxygen Flow Rate 2 07/08/24 17:43 Vital Signs Temperature 98 F 07/08/24 17:43 Pulse Rate 45 L 07/08/24 17:43 Respiratory Rate 16 07/08/24 17:43 Blood Pressure 109/45 L 07/08/24 17:43 Pulse Oximetry 92 07/08/24 17:43 Oxygen Delivery Method Nasal Cannula 07/08/24 17:43 Oxygen Flow Rate 2 07/08/24 17:43 Temperature 98 F 07/08/24 17:43 Pulse Rate 48 L 07/08/24 19:42 Respiratory Rate 16 07/08/24 17:43 Blood Pressure 117/75 07/08/24 19:42 Pulse Oximetry 91 07/08/24 19:42 Oxygen Delivery Method Nasal Cannula 07/08/24 19:42 Oxygen Flow Rate 1 07/08/24 19:42 Medications Administered Medications: Generic Name Dose Route Start Last Admin Trade Name Freq PRN Reason Stop Dose Admin Albuterol/Ipratropium 1 neb 07/08/24 19:34 07/08/24 19:46 Iprat-Albut 0.5-2.5 Mg/3 Ml Neb IH 07/08/24 19:35 1 neb ONCE ONE Administration Sodium Chloride 1,000 mls @ 500 mls/hr 07/08/24 19:35 07/08/24 18:00 0.9 % Sodium Chloride 1000 Ml IV 07/08/24 21:34 500 mls/hr .Q2H JULIAN Administration Morphine Sulfate 2 mg 07/08/24 19:34 07/08/24 19:43 Morphine 2 Mg/Ml Inj IVP 07/08/24 19:35 2 mg ONCE ONE Administration - Fall Lab Data Attestation: I reviewed the patient's lab results. Labs: Lab Results 07/08/24 Range/Units 18:23 WBC 10.75 (4.50-11.00) K/uL RBC 4.87 (4.00-5.20) m/uL Hgb 13.3 (12.0-16.0) gm/dL Hct 42.0 (33.0-51.0) % MCV 86 (80-100) fL MCH 27 (26-34) pg MCHC 32 (32-36) gm/dL RDW Coeff of Paty 13.3 (11.5-15.5) % Plt Count 218 (140-440) K/uL Neut % (Auto) 57.3 (42.0-72.0) % Lymph % (Auto) 29.4 (20-44) % [place] % (Auto) 6.6 (0.0-11.0) % Eos % (Auto) 6.0 (0.0-7.0) % Baso % (Auto) 0.3 (0.0-3.0) % Neut # (Auto) 6.17 (1.7-7.0) K/uL Lymph # (Auto) 3.16 H (0.90-2.90) K/uL [place] # (Auto) 0.70 (0.00-0.90) K/UL Eos # (Auto) 0.64 H (0.00-0.50) K/uL Baso # (Auto) 0.03 (0.00-0.30) K/uL Abs Immat Gran (auto) 0.04 (0.00-0.30) K/uL Imm/Tot Granulo (auto) 0.4 % ESR 12 (2-20) mm/hr Sodium 131 L (135-149) mmol/L Potassium 3.4 L (3.6-5.1) mmol/L Chloride 97 (96-114) mmol/L Carbon Dioxide 31 (20-32) mmol/L Anion Gap 3 L (7-15) mEq/L BUN 16 (7-30) mg/dL Creatinine 1.1 (0.5-1.5) mg/dL Estimated Creat Clear 41.04 Estimated GFR 58 ml/min Glucose 154 H (60-115) mg/dL Calcium 8.5 (8.4-10.6) mg/dL Magnesium 1.8 (1.5-2.6) mg/dL Total Bilirubin 0.6 (0.1-1.5) mg/dL AST 29 (12-35) U/L ALT 20 (4-35) U/L Alkaline Phosphatase 74 (40-150) U/L Troponin I < 0.01 L (0.01-0.04) ng/mL C-Reactive Protein 2.5 H (0.5-1.0) mg/dL NT-Pro-B Natriuret Pep 1770 pg/mL Total Protein 6.0 (6.0-8.3) g/dL Albumin 3.2 L (3.3-5.0) g/dL Ethyl Alcohol < 0.01 L (0.01-0.03) % Imaging Data CT scan - head: Attestation: I have reviewed the pertinent imaging results. Radiologist's impression: Patient: SANGITA LEES Facility:?[facility] Patient ID:?[id number] Site Patient ID:?[id number]. Site :?1965 Study:?CT-Head WITHOUT-07/08/2024 7:38:33 PM Ordering Physician:Hood Oliver Final Report: INDICATION: Falls. TECHNIQUE: CT head without contrast. COMPARISON: None. FINDINGS: CSF spaces: Within normal limits for age. Brain parenchyma and extra-axial spaces: The boyer-white differentiation is normal. No sign of mass, hemorrhage, or midline shift. No extra-axial fluid collection. Skull base and calvarium: The visualized paranasal sinuses and mastoid air cells demonstrate no acute or significant findings. The visualized orbits are grossly unremarkable. No skull fractures. IMPRESSION: No acute intracranial abnormality. Please note that all CT scans at this facility use dose modulation, iterative reconstruction, and/or weight-based dosing when appropriate to reduce radiation dose to as low as reasonably achievable. Dictated by Neno Weeks MD @ 07/08/2024 7:50:36 PM (Electronic Signature) CT lumbar spine: Attestation: I have reviewed the pertinent imaging results. Radiologist's impression: Patient: SANGITA LEES Facility:?[facility] Patient ID:?[id number] Site Patient ID:?[id number] Site :?1965 Study:?CT-Spine Lumbar W/O-07/08/2024 7:33:39 PM Ordering Physician:?Vielka Oliver Final Report: INDICATION: Fall, low back pain. TECHNIQUE: CT lumbar spine without contrast. COMPARISON: None. FINDINGS: Vertebrae: Posterior L4-L5 hardware fixation. Acute mild L1 and L2 superior endplate compression fractures. Discs and facet joints: Mild multilevel degenerative disc disease and facet arthropathy. Extraspinal findings: Prevertebral soft tissues and visualized retroperitoneum are unremarkable. IMPRESSION: Acute mild L1 and L2 superior endplate compression fractures. Please note that all CT scans at this facility use dose modulation, iterative reconstruction, and/or weight-based dosing when appropriate to reduce radiation dose to as low as reasonably achievable. Dictated by Neno Weeks MD @ 07/08/2024 7:43:45 PM (Electronic Signature) CT cervical spine: Attestation: I have reviewed the pertinent imaging results. Radiologist's impression: Patient: SANGITA LEES Facility:?[facility] Patient ID:?[id number] Site Patient ID:?[id number]. Site :?1965 Study:?CT-Spine Cervical W/O-07/08/2024 7:32:43 PM Ordering Physician:?Vielka Oliver Final Report: INDICATION: Trauma. TECHNIQUE: CT cervical spine without contrast. COMPARISON: None. FINDINGS: Vertebrae: Alignment is normal. There are no fractures or suspicious bony lesions. Discs and facet joints: There are mild diffuse degenerative changes in the disc spaces and facet joints. Extraspinal findings: Paraspinous soft tissues are unremarkable. IMPRESSION: 1. No sign of acute injury. 2. Mild multilevel degenerative spondylosis. Please note that all CT scans at this facility use dose modulation, iterative reconstruction, and/or weight-based dosing when appropriate to reduce radiation dose to as low as reasonably achievable. Dictated by Neno Weeks MD @ 07/08/2024 7:40:28 PM (Electronic Signature) Chest x-ray: Attestation: I have reviewed the pertinent imaging results. Radiologist's impression: Patient: SANGITA LEES Facility:?[facility] Patient ID:?[id number] Site Patient ID:?[id number]. Site :?1965 Study:?XRay-Chest 1 VIEW-07/08/2024 7:26:03 PM Ordering Physician:Hood Oliver Final Report: INDICATION: Cough, dyspnea. TECHNIQUE: Chest 1 view. COMPARISON: None. FINDINGS: Cardiovascular and mediastinum: Heart size and vasculature are normal in caliber and appearance. Lungs and pleural spaces: Streaky opacity within the right lung base. The remainder of the lungs are clear. No pleural effusion or pneumothorax. Bones and soft tissues: Right humeral head postsurgical changes. Otherwise, unremarkable for age. IMPRESSION: Streaky opacity within the right lung base likely represents atelectasis or scarring; however, infection could appear similar in the correct clinical setting. Dictated by Facundo Ralph MD @ 07/08/2024 7:35:38 PM (Electronic Signature) ECG Data Attestation: I personally reviewed and interpreted this ECG as follows: (Sinus bradycardia with premature atrial complex, rate 51 beats per minute. There is artifact but no definitive ischemic change or evidence of infarct.) ECG interpretation date: 07/08/24 ECG interpretation time: 18:17 Prior ECG tracings: available for review (On 05/08/2020 for patient was in sinus rhythm with a rate of 63 beats per minute.) Discharge Plan Discharge Clinical Impression: Compression fracture of L1 vertebra, Compression fracture of L2, Bradycardia Patient Disposition: Home, Self-Care Condition: Stable Instructions: Osteoporosis (ED), Bradycardia (ED) Additional Instructions: Take Tylenol a 1000 mg 3 times a day baseline for pain. Have written for oxycodone, follow prescription dosage instruction. You absolutely need to contact your clinic as you will need pain management through the weekend and I cannot provide that number narcotic pills for you. You will also need to schedule clinic followup, see if you can be seen tomorrow. Your heart rate was low and the propranolol dosage should be decreased. Please stop the 80 mg tablets and start the 60 mg tablets, I have sent a new prescription in for this. Further prescriptions of the lower dosage of propranolol will need to be renewed by your primary provider if this is the dose you will stay on. Your pulse rate should be rechecked in clinic as well. Activity Level: Activity as Tolerated Prescriptions: New propranolol 60 mg capsule,extended release 24 hr 60 mg PO DAILY Qty: 30 0RF No Action furosemide 20 mg tablet 20 mg PO DAILY atorvastatin [Lipitor] 40 mg tablet 40 mg PO DAILY buspirone 10 mg tablet 10 mg PO TID potassium chloride [Klor-Con M20] 20 mEq tablet,ER particles/crystals 20 meq PO DAILY propranolol 80 mg capsule,extended release 24 hr 80 mg PO DAILY fluoxetine 20 mg capsule 60 mg PO DAILY aspirin 325 mg tablet 325 mg PO DAILY budesonide-formoterol [Breyna] 80-4.5 mcg/actuation HFA aerosol inhaler 2 inh inhalation BID prednisone 20 mg Tablet 40 mg PO DAILYWM 3 Days Qty: 6 0RF doxycycline hyclate 100 mg Tablet 100 mg PO BID 4 Days Qty: 8 0RF hydroxyzine pamoate 25 mg Capsule 25 mg PO Q4H PRN (Reason: anxiety) Qty: 30 0RF Follow Up/Referrals: Provider,Not a Local [Primary Care Provider] - Stand Alone Forms: [employer] Info Instructions
[2024-07-08] MEDS: 0.9 % SODIUM CHLORIDE 1000 ml 1,000 ML 500 ML IV (18:00)
--- NOTE | 2024-07-08 18:06 | CRLHL7_ITS ---
For Patients: As a result of the Century Cures Act, medical imaging exams and procedure reports are released immediately into your electronic medical record. You may view this report before your referring provider. If you have questions, please contact your health care provider. INDICATION: Fall, low back pain. TECHNIQUE: CT lumbar spine without contrast. COMPARISON: None. FINDINGS: Vertebrae: Posterior L4-L5 hardware fixation. Acute mild L1 and L2 superior endplate compression fractures. Discs and facet joints: Mild multilevel degenerative disc disease and facet arthropathy. Extraspinal findings: Prevertebral soft tissues and visualized retroperitoneum are unremarkable. IMPRESSION: Acute mild L1 and L2 superior endplate compression fractures. Please note that all CT scans at this facility use dose modulation, iterative reconstruction, and/or weight-based dosing when appropriate to reduce radiation dose to as low as reasonably achievable. Dictated by Neno Weeks MD @ 07/08/2024 7:43:45 PM (Electronically Signed)
--- NOTE | 2024-07-08 18:06 | CRLHL7_ITS ---
For Patients: As a result of the Cures Act, medical imaging exams and procedure reports are released immediately into your electronic medical record. You may view this report before your referring provider. If you have questions, please contact your health care provider. INDICATION: Trauma. TECHNIQUE: CT cervical spine without contrast. COMPARISON: None. FINDINGS: Vertebrae: Alignment is normal. There are no fractures or suspicious bony lesions. Discs and facet joints: There are mild diffuse degenerative changes in the disc spaces and facet joints. Extraspinal findings: Paraspinous soft tissues are unremarkable. IMPRESSION: 1. No sign of acute injury. 2. Mild multilevel degenerative spondylosis. Please note that all CT scans at this facility use dose modulation, iterative reconstruction, and/or weight-based dosing when appropriate to reduce radiation dose to as low as reasonably achievable. Dictated by Neno Weeks MD @ 07/08/2024 7:40:28 PM (Electronically Signed)
--- NOTE | 2024-07-08 18:07 | CRLHL7_ITS ---
For Patients: As a result of the Century Cures Act, medical imaging exams and procedure reports are released immediately into your electronic medical record. You may view this report before your referring provider. If you have questions, please contact your health care provider. INDICATION: Cough, dyspnea. TECHNIQUE: Chest 1 view. COMPARISON: None. FINDINGS: Cardiovascular and mediastinum: Heart size and vasculature are normal in caliber and appearance. Lungs and pleural spaces: Streaky opacity within the right lung base. The remainder of the lungs are clear. No pleural effusion or pneumothorax. Bones and soft tissues: Right humeral head postsurgical changes. Otherwise, unremarkable for age. IMPRESSION: Streaky opacity within the right lung base likely represents atelectasis or scarring; however, infection could appear similar in the correct clinical setting. Dictated by Facundo Ralph MD @ 07/08/2024 7:35:38 PM (Electronically Signed)
--- NOTE | 2024-07-08 18:10 | CRLHL7_ITS ---
For Patients: As a result of the Century Cures Act, medical imaging exams and procedure reports are released immediately into your electronic medical record. You may view this report before your referring provider. If you have questions, please contact your health care provider. INDICATION: Falls. TECHNIQUE: CT head without contrast. COMPARISON: None. FINDINGS: CSF spaces: Within normal limits for age. Brain parenchyma and extra-axial spaces: The boyer-white differentiation is normal. No sign of mass, hemorrhage, or midline shift. No extra-axial fluid collection. Skull base and calvarium: The visualized paranasal sinuses and mastoid air cells demonstrate no acute or significant findings. The visualized orbits are grossly unremarkable. No skull fractures. IMPRESSION: No acute intracranial abnormality. Please note that all CT scans at this facility use dose modulation, iterative reconstruction, and/or weight-based dosing when appropriate to reduce radiation dose to as low as reasonably achievable. Dictated by Neno Weeks MD @ 07/08/2024 7:50:36 PM (Electronically Signed)
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
--- OUTSIDE RECORDS SUMMARY | 2024-07-08 18:18 | XMS_ITS | Continuity of Care Document ---
Author Organization [place] [facility] Address [address] [place] [phone] Assessment No assessment recorded. Plan of Treatment Reminders Order Date Submit Date Provider Last Modified By Organization Details Last Modified Time Details Appointments MOUD RETURNING 2023 10:00A JOYCELYN Sanches Not available Not available Not available Lab drug screen, urine 2023 024 helen [place] [facility], [address] [place] [address], [phone], 05/31/2024 13:26:59 CMP, serum or plasma 2023 024 [facility], [address] [place] [address], [address], 06/12/2024 10:06:08 Referral mental health counselor referral 2023 024 [email or web address] Not available 06/02/2024 17:17:46 Procedures None recorded. Surgeries None recorded. Imaging None recorded. Medication Orders buprenorp isidra 8 mg-naloxo ne 2 mg sublingua l tablet 2023 024 [facility] [address], [address], 05/31/2024 13:27:05 Patient TargetsNo targets recorded. Patient InstructionsNo instructions recorded. Reason for Referral Mental Health Counselor Refe rral for Opioid dependence, on agonist therapy Referring Physician: Jonelle Rivas, Family Medicine, Encounter Date: 05/31/2024 Results Created Date Observation Date Name Description Value Unit Range Abnormal Flag LastModifiedBy Organization Detail LastModifiedTime 05/31/20 24 05/31/2024 drug scree n, urine Amphetamines : negati ve Not Available [address], [address], 05/31/2024 12:40:03 05/31/20 24 05/31/2024 drug scree n, urine Cannabinoids : negati ve Not Available [address], [address], 05/31/2024 12:40:03 05/31/20 24 05/31/2024 drug scree n, urine Cocaine: negati ve Not Available [address], [address], 05/31/2024 12:40:03 05/31/20 24 05/31/2024 drug scree n, urine Opiates: negati ve Not Available [address], [address], 05/31/2024 12:40:03 05/31/20 24 05/31/2024 drug scree n, urine Phenocyclidi ne: negati ve Not Available [address], [address], 05/31/2024 12:40:03 05/31/20 24 05/31/2024 drug scree n, urine Barbiturates : negati ve Not Available [address], [address], 05/31/2024 12:40:03 05/31/20 24 05/31/2024 drug scree n, urine Benzodiazepi erma: negati ve Not Available [address], [address], 05/31/2024 12:40:03 05/31/20 24 05/31/2024 drug scree n, urine Hallucinogen s: negati ve Not Available [address], [address], 05/31/2024 12:40:03 05/31/20 24 05/31/2024 drug scree n, urine TCA negati ve Not Available [address], [address], 05/31/2024 12:40:03 05/31/20 24 05/31/2024 drug scree n, urine Buprenorphin e positi ve Not Available [address], [address], 05/31/2024 12:40:03 Result Notes None recorded. Problems Name Status Onset Date Resolution Date Notes Provider Name and Address Organization Details Recorded Time Chronic obstructive pulmonary disease Active 05/31/20 24 JOYCELYN Johnson [address] [place] [address], [address] , [employer] 05/31/2024 13:27:20 Hyperlipidemia Active 05/31/[address] [place] [address], [address] , [employer] 05/31/2024 13:27:36 Chronic pain Active 05/31/20 24 JOYCELYN Johnson [address] [place] [address], [address] , [facility] [employer] 05/31/2024 13:27:45 Opioid dependence Active 05/31/[address] [place] [address], [address] , [facility] [employer] 05/31/2024 13:28:09 Problem Notes None recorded. Medical [...] Updated DateTime 4 154.94 cm 35.4 kg/m2 43710.8 5 g 98 % 98 % 59 /min 113 mm[Hg] 69 mm[Hg] JOYCELYN Johnson [address] [place] [address], [phone] [place], [place] - [employer] [facility] 12:05:58 Social History None recorded. Functional Status None recorded. Mental Status None recorded. Family History Nothing Reported. Medical History No medical history recorded. Gynecological HistoryNo gynecological history recorded. Obstetrics History GPAL:G 0 P 0 0 0 0 Past Encounters Encounter ID Performer Location Encounter Start Date Encounter Closed Date Diagnosis/Indication Diagnosis SNOMED-CT Code [id number] JOYCELYN Johnson [facility] [address] [place] [address] 05/31/2024 12:00:06 05/31/2024 14:04:32 Opioid dependence, on agonist therapy [id number] Health Concerns Section Related Observation LastModified by Organization Yvette ellison LastModified Time None Recorded Concern Status LastModified by Organization Details LastModified Time None Recorded Payers Encounter Date Sequence Insurance [...] as needed Multivitamin Ibuprofen prn Primary clinic: [facility], Dr Lemus Behavior health: None at this time; interested in MH counseling referral SH: - Living situation: living alone in apartment here in [place]. Has a dog. Moved recently. Was homeless for a short time after her sister kicked her out of her house -Supports: Friends/family (is not explicit). 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 Also occasional benzodiazepine. Says is not getting this currently JOYCELYN Johnson [address] [place] [address], [phone], [facility] 05/31/2024 15:38:54 OBGyn Episode No OBEpisode recorded.
--- OUTSIDE RECORDS SUMMARY | 2024-07-08 18:18 | XMS_ITS | Clinical Summary ---
Author Organization [facility] Address [place], [place] [address] Care Team Providers Care Medical Radiation Dosimetrist Name Role Phone Brian Pabon MD Unavailable [phone] Pcp, No Primary Care Provider Unavailabl e Allergies Active Allergy Reactions Criticality Noted Date Comments Adhesive *Unknown 05/27/2014 Cephalexin Anaphylaxis High 06/17/2014 Codeine Itching,Intolerance- C an't Take 05/27/2014 Fentanyl *Unknown,Rash Medium 03/22/2003 Skin sores w Duragesic Patch Lidocaine Hives Medium 08/11/2016 Naproxen Anaphylaxis,Hives,Dy s pnea High 09/11/2005 Aleve Nsaids (Non-Steroidal Anti-Inflammatory Drug) *Unknown 05/27/2014 Per H&P Penicillins *Unknown 05/27/2014 Sulfa (Sulfonamide Antibiotics) Itching 05/27/2014 Medications Medication Sig Dispensed Refills Start Date End Date Status omeprazole (PRILOSEC) 20 mg Delayed-Release capsule Take 20 mg by mouth once daily before a meal. Active traZODone (DESYREL) 100 mg tablet Take 100 mg by mouth at bedtime if needed for Sleep. Active ibuprofen (ADVIL; MOTRIN) 200 mg cap Take 800 mg by mouth 4 times daily if needed for Pain. Active fluticasone (50 mcg per actuation) nasal solution (FLONASE) Inhale 1 [place] in the nostril(s). 08/07/2017 Active albuterol-ipratrop ium (DUONEB) (2.5-0.5 mg) in 3 mL NEBULIZATION solution Inhale 3 mL by mouth. 07/31/2016 Active busPIRone (BUSPAR) 10 mg tablet Take 10 mg by mouth three times daily. 09/29/2023 Active atorvastatin (LIPITOR) 40 mg tablet Take 40 mg by mouth once daily. 08/06/2023 Active FLUoxetine (PROZAC) 40 mg capsule Take 40 mg by mouth once daily. Take with 20 mg for total daily dose of 60 mg 09/11/2023 Active FLUoxetine (PROZAC) 20 mg capsule Take 20 mg by mouth once daily. Take with 40 mg for total daily dose of 60 mg 09/11/2023 Active fluticasone propion-salmeteroL (ADVAIR) 250-50 mcg/Dose diskus inhaler Inhale 1 Puff by mouth two times daily. RINSE MOUTH AFTER USE WITH WATER TO REDUCE AFTERTASTE AND INCIDENCE OF CANDIDIASIS, DO NOT SWALLOW. 09/03/2023 Active nystatin powder (MYCOSTATIN) powder Apply topically to affected area(s) each time if needed (as needed under breasts). Apply powder topically as directed under breasts Active propranoloL (INDERAL) 40 mg tablet Take 1 Tablet by mouth two times daily. 05/01/2023 Active SUMAtriptan (IMITREX) 50 mg tablet Take 50 mg by mouth one time if needed for Migraine. May repeat dose once in 2 hours if migraine is unresolved. Do not exceed 200 mg in 24 hours 01/17/2023 Active acetaminophen (TYLENOL EXTRA STRGTH) 500 mg tablet Take 1,000 mg by mouth every 6 hours if needed for Pain, Headache or Temp > (Specify). 12/09/2021 Active albuterol HFA (PRO-AIR; VENTOLIN; PROVENTIL) 90 mcg/actuation inhaler Inhale 2 Puffs by mouth every 4 hours if needed for Shortness Of Breath or Wheezing. 09/03/2023 Active hydrOXYzine pamoate (VISTARIL) 25 mg capsuleIndications :Generalized anxiety disorder Take 1-2 Capsules (25-50 mg) by mouth every 8 hours if needed for Anxiety. 45 Capsule 10/27/2023 Active oxyCODONE 10 mg tablet Take 10 mg by mouth every 6 hours if needed for Pain. 10/13/2023 Active furosemide (LASIX ORAL) Take 10 mg by mouth. Active LORazepam (ATIVAN) 0.5 mg tabIndications:Anx iety Take one-half to 1 Tablet (0.25-0.5 mg) by mouth every 6 hours if needed for Anxiety. 5 Tablet 11/04/2023 Active cholecalciferol, Vitamin D3, (Vitamin D-3) 2,000 unit tablet Take 2,000 units by mouth once daily. Active potassium chloride (KLOR-CON M20) 20 mEq extended-release tablet (part/cryst) Take 20 mEq by mouth once daily with a meal. Active rx oxyCODONE-acetamin ophen, 5-325 mg, (PERCOCET 5-325) tablet (ED DC MED)Indications:Ac [place] exacerbation of chronic low back pain Take 1 Tablet by mouth every 4 hours if needed (pain). 02/18/2024 Active oxyCODONE-acetamin ophen (PERCOCET) 5-325 mg per tabletIndications: Acute exacerbation of chronic low back pain Take 1 Tablet by mouth every 4 hours if needed for Pain. Max acetaminophen dose: 4000mg in 24 hrs. 10 Tablet 02/18/2024 Active predniSONE (DELTASONE) 20 mg tabletIndications: COPD exacerbation (HC) Take 2 Tablets (40 mg) by mouth once daily. 10 Tablet 05/21/2024 Active Active Problems Problem Noted Date Diagnosed Date COPD exacerbation 11/04/2023 Anxiety 11/04/2023 Acute exacerbation of COPD with asthma Congestive heart failure (CHF) 10/10/2023 Hypokalemia 10/10/2023 Back pain 05/21/2019 Mild intermittent asthma 08/13/2016 Generalized anxiety disorder 04/24/2016 Chronic pain syndrome 10/26/2014 Overview: Chronic pain syndrome She has chronic pain due to chronic low back pain (prior lumbar surgeries), chronic migraine headache and chronic knee pain. On Celebrex daily along with Cymbalta and prn zanaflex. [facility] Essential hypertension 10/26/2014 Overview: Losartan and hydrochlorothiazide Gastro-esophageal reflux disease without esophag itis 10/26/2014 Recurrent major depressive disorder 10/26/2014 Overview: Cymbalta BuSpar for anxiety Depression 06/02/2014 Spinal stenosis, lumbar lynsey on, with neurogenic claudication 06/01/2014 Acquired spondylolisthesis 06/01/2014 Chemical dependency 06/01/2014 Overview: H/o of benzodiazepine and opiate abuse. Went through rehabilitation in 2012 at [facility]. 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, oral Hyperlipidemia 03/22/2003 Overview: Statin Encounters Date Type Department Care Team Description 05/21/2024 3:18 PM CDT - 05/21/2024 5:27 PM CDT Emergency [facility] [address] [place] [address] Nadia Bolaños PA COPD exacerbation (HC) (Primary Dx) Discharge Disposition: Home Self Care 05/21/2024 Travel from Last 3 Months Immunizations Name Administration Dates Next Due COVID-19 Vaccine Spikevax (M oderna 50mcg/0.5mL) 12YO+ [id number] Formula PF 10/27/2023 Influenza Virus, Unspecified 08/22/2017, 10/19/2014,09/01/2013,2011,08/21/2011,09/04/2010,09/25/2009,0 08/24/2008,10/16/2007,09/23/2006, 005,08/24/2004,09/14/2003 Influenza, IIV3 (Age 6-35 mos) 3,08/14/2012,09/04/2010,2008,09/23/2006 Influenza, IIV3 (Age >=3 years) 08/21/20 11,08/24/2008,10/18/2005,2003,09/14/2003 Influenza, IIV4 10/27/2023, 3,10/22/2021,2020,08/22/2017 Pneumococcal Conj 20-valent (Prevnar 20) 01/17/2023 Pneumococcal Poly,23-Valent (Pneumovax) 08/22/2017 Td (Age >=7 Years) 12/04/2004,12/01/1994 Tdap 06/01/2016,08/02/2008 Tuberculin (PPD) 02/25/2012 Social History Tobacco Use Types Packs/Day Years Used Date Smoking Tobacco: Some Days Cigarettes Passive Smoke Exposure: Past Smokeless Tobacco: Never Tobacco Cessation:Ready to Q uit: Not Asked; Counseling Given: Not Answered Alcohol Use Standard Drinks/Week Comments No 0 (1 standard drink = 0.6 oz pur e alcohol) PHQ-2 Answer Date Recorded PHQ-2 TOTAL SCORE 4 10/27/2023 Social Connections Answer Date Recorded Frequency of Communication with Friends and Fami ly 0 10/10/2023 Financial Resource Strain Answer Date R ecorded Difficulty of Paying Living Expenses 3 10/10/2023 Difficulty of Paying Living Expenses Not on file 10/10/2023 Food Insecurity Answer Date Recorded Worried About Running Out of Food in the Last Ye ar 1 10/10/2023 Transportation Needs Answer Date Record ed Lack of Transportation (Medical) 1 10/10/2023 Housing Stability Answer Date Recorded Unable to Pay for Housing in the Last Year 1 10/10/2023 Sex and Gender Information Value Date Recorded Sex Assigned at Not on file Gender Identity Not on file Sexual Orientation Not on file Obstetrics History Last Filed Vital Signs Vital Sign Reading Time Taken Comments Blood Pressure 148/92 05/21/2024 5:19 PM CDT Pulse 50 05/21/2024 5:19 PM CDT Temperature 36.4 ??C (97.6 ??F) 05/21/2024 3:24 PM CD T Respiratory Rate 22 05/21/2024 5:19 PM CDT Oxygen Saturation 92% 05/21/2024 5:19 PM CDT Inhaled Oxygen Concentration - - Weight 86.6 kg (191 lb) 05/21/2024 3:24 PM CDT Height 154.9 cm (5' 1) 05/21/2024 3:24 PM CDT Body Mass Index 36.09 05/21/2024 3:24 PM CDT Plan of Treatment Health Maintenance Due Date Last Done Comments HIV for age 15-65 02/05/1979 Hepatitis C screening for ag e 18-79 02/05/1982 Pap test for age 21-65 02/05/1985 Colonoscopy through age 75 02/05/2009 Lipids for age 45-75 02/05/2009 Mammogram for age 45-75 02/05/2009 Zoster (shingles) series for age 50+ (1 of 2) 02/05/2014 Influenza for age 50-64 08/01/2024 10/27/20, 12/18/2022, 10/22/2021, Additional history exists BMI (ht and wt on same day) for age 18+ 10/27/2024 10/27/2023, 05/24/2019 Depression screening for age 12+ 10/27/2024 10/27/20 Tetanus booster 06/01/2026 06/01/2016, 01/2008, 12/04/2004, Additional history exists Tdap Completed 06/01/2016, 08/02/2008 Pneumococcal series for age 6-64 Completed 01/17/20, 08/22/2017 COVID-19 vaccine series Completed 10/27/20, 12/18/2022, 04/19/2022, Additional history exists Medical Devices Implanted Type Area Forge Operator Helper Device Identifier Shelf Expiration Date Model / Serial / Lot Milton 4.0cmx5.5mm Pre-Cut - [id number] Implanted:Qty: 1 on 05/31/2014 at [facility] Spine Implants Spine Medtronic Spine/Ortho [id number]# / / [id number] 1131bone 30cc Mtf Chips Canclls Pouch [[id number]] Implanted:Qty: 1 on 05/31/2014 at [facility] Explanted:(Everardo irizarry not on file) Spine Musculoskeletal Transplant 09/21/2016 [id number]# / [id number] / Capstone 12x22 - [id number] Implanted:Qty: 1 on 05/31/2014 at [facility] Spine Medtronic Spine/Ortho [id number]# / / [id number] Set Screw 3dx - [id number] Implanted:Qty: 4 on 05/31/2014 at [facility] Spine Medtronic Spine/Ortho [id number]# / / Cnnctr Tsrh 3dx Sm - [id number] Implanted:Qty: 4 on 05/31/2014 at [facility] Spine Medtronic Spine/Ortho [id number]# / / Screw Osteogrip 6.5x40mm - [id number] Implanted:Qty: 4 on 05/31/2014 at [facility] Spine Medtronic Spine/Ortho [id number]# / / Milton 3.5cmx5.5mm Pre-Cut - [id number] Implanted:Qty: 1 on 05/31/2014 at [facility] Spine Medtronic Spine/Ortho [id number]# / / Procedures Procedure Name Priority Date/Time Associated Diagnosis Comments XR CHEST 1 VIEW PORTABLE STAT 05/21/2024 4:37 PM CDT CBC WITH AUTO DIFFERENTIAL STAT 05/21/2024 4:22 PM CDT LACTATE VENOUS Today 05/21/2024 4:22 PM CDT BASIC METABOLIC PANEL STAT 05/21/2024 4:22 PM CDT CBC WITH AUTO DIFFERENTIAL STAT 05/21/2024 4:22 PM CDT from Last 3 Months Results * XR CHEST 1 VIEW PORTABLE (05/21/2024 4:37 PM CDT) Anatomical Region Laterality Modality HEART, THORAX, CHEST Digital Rad iography 05/21/2024 4:52 PM CDT Impressions 05/21/2024 4:52 PM CDT No acute findings and no significant changes from the prior exam. Dictated by Neno Weeks MD @ 05/21/2024 4:52:13 PM (Electronically Signed) Narrative 05/21/2024 4:52 PM CDT For Patients: ??As a result of the Cures Act, medical imaging exams and procedure reports are released immediately into your electronic medical record. ??You may view this report before your referring provider. ??If you have questions, please contact your health care provider. INDICATION: Shortness of breath. TECHNIQUE: Chest 1 views. COMPARISON: October 10, 2023. FINDINGS: Cardiovascular and mediastinum: ??Heart size and vasculature are normal in caliber and appearance. ?? Lungs and pleural spaces: ??Lungs are clear. ??No sign of infiltrate or mass. ??No sign of pleural effusion. ??No pneumothorax. ?? Bones and soft tissues: ??No significant findings. Procedure Note Neno Weeks MD - 05/21/2024 For Patients: As a result of the Century Cures Act, medical imagingexams and procedure reports are released immediately into your electronicmedical record. You may view this report before your referring provider.If you have questions, please contact your health care provider. INDICATION: Shortness of breath. TECHNIQUE: Chest 1 views. COMPARISON: October 10, 2023. FINDINGS: Cardiovascular and mediastinum: Heart size and vasculature are normal incaliber and appearance. Lungs and pleural spaces: Lungs are clear. No sign of infiltrate ormass. No sign of pleural effusion. No pneumothorax. Bones and soft tissues: No significant findings. IMPRESSION: No acute findings and no significant changes from the prior exam. Dictated by Neno Weeks MD @ 05/21/2024 4:52:13 PM (Electronically Signed) [facility] * (ABNORMAL) CBC WITH AUTO DIFFERENTIAL (05/21/2024 4:22 PM CDT) WHITE BLOOD COUNT 7.8 4.5 - 11.0 thou/cu mm 05/21/2024 4:29 PM [facility] RED BLOOD COUNT 4.81 4.00 - 5.20 mil/cu mm 05/21/2024 4:29 PM [facility] HEMOGLOBIN 14.3 12.0 - 16.0 g/dL 05/21/2024 4:29 PM [facility] HEMATOCRIT 43.9 33.0 - 51.0 % 05/21/2024 4:29 PM [facility] MCV 91 80 - 100 fL 05/21/2024 4:29 PM [facility] MCH 29.7 26.0 - 34.0 pg 05/21/2024 4:29 PM [facility] MCHC 32.6 32.0 - 36.0 g/dL 05/21/2024 4:29 PM [facility] RDW 13.7 11.5 - 15.5 % 05/21/2024 4:29 PM [facility] PLATELET COUNT 290 140 - 440 thou/cu mm 05/21/2024 4:29 PM [facility] MPV 9.9 6.5 - 11.0 fL 05/21/2024 4:29 PM T [facility] % NEUT 49.3 % 05/21/2024 4:29 PM T [facility] % LYMPH 40.1 % 05/21/2024 4:29 PM T [facility] % MONO 6.5 % 05/21/2024 4:29 PM T [facility] % EOS 3.8 % 05/21/2024 4:29 PM T [facility] % BASO 0.3 % 05/21/2024 4:29 PM T [facility] ABSOLUTE NEUTROPHILS 3.8 1.7 - 7.0 thou/cu mm 05/21/2024 4:29 PM T [facility] ABSOLUTE LYMPHOCYTES 3.1(H) 0.9 - 2.9 thou/cu mm 05/21/2024 4:29 PM T [facility] ABSOLUTE MONOCYTES 0.5 <0.9 thou/cu mm 05/21/2024 4:29 PM T [facility] ABSOLUTE EOSINOPHILS 0.3 <0.5 thou/cu mm 05/21/2024 4:29 PM [facility] ABSOLUTE BASOPHILS 0.0 <0.3 thou/cu mm 05/21/2024 4:29 PM [facility] Blood BLOOD SPECIMEN / Unknown Venipuncture / Unknown 05/21/2024 4:22 PM CDT 05/21/2024 4:25 PM CDT Nadia [facility]ISTA HEMATOLOG[facility] [address] [place] [address] * LACTATE VENOUS (05/21/2024 4:22 PM CDT) LACTATE,VENOUS 0.8 0.5 - 2.0 mmol/L 05/21/2024 4:48 PM CDT [facility] Blood BLOOD SPECIMEN / Unknown Venipuncture / Unknown 05/21/2024 4:22 PM CDT 05/21/2024 4:25 PM CDT Nadia BAUTISTA CHEMISTRY [facility] [address] [facility] [address] * (ABNORMAL) BASIC METABOLIC PANEL (05/21/2024 4:22 PM CDT) SODIUM 139 136 - 145 mmol/L 05/21/2024 4:49 PM T [facility] POTASSIUM 4.4 3.5 - 5.1 mmol/L 05/21/2024 4:49 PM [facility] CHLORIDE 101 98 - 107 mmol/L 05/21/2024 4:49 PM [facility] CO2,TOTAL 28 22 - 29 mmol/L 05/21/2024 4:49 PM [facility] ANION GAP 10 5 - 18 05/21/2024 4:49 PM [facility] GLUCOSE 95 70 - 99 mg/dL 05/21/2024 4:49 PM [facility] CALCIUM 9.6 8.8 - 10.2 mg/dL 05/21/2024 4:49 PM [facility] BUN 11 8 - 23 mg/dL 05/21/2024 4:49 PM [facility] CREATININE 1.04(H) 0.50 - 0.90 mg/dL 05/21/2024 4:49 PM [facility] BUN/CREAT RATIO 11 10 - 20 4:49 PM [facility] eGFR 62(L) >90 mL/min/1.7 3m2 05/21/2024 4:49 PM [facility] Comment:As of 2022, eG FR is calculated by the CKD-EPI creatinine equation without race adjustment. ??eGFR can be influenced by muscle mass, exercise, and diet. ??The reported eGFR is an estimation only and is only applicable if the renal function is stable. Blood BLOOD SPECIMEN / Unknown Venipuncture / Unknown 05/21/2024 4:22 PM CDT 05/21/2024 4:25 PM CDT Nadia BAUTISTA CHEMISTRY [facility] [address] [place] [address] from Last 3 Months Advance Directives * Full Code (Latest Code Status on File) Date Activated Date Inactivated Comments 11/04/2023 2:51 AM 11/04/2023 2:36 PM Question Answer Comments Code Status Discussion: Reviewed Preferences * Full Code Date Activated Date Inactivated Comments 10/10/2023 4:21 PM 10/12/2023 4:35 PM Question Answer Comments Code Status Discussion: Reviewed Preferences * Full Code Date Activated Date Inactivated Comments 05/21/2019 11:03 PM 05/22/2019 2:56 PM * Full Code Date Activated Date Inactivated Comments 05/31/2014 7:13 AM 06/05/2014 2:03 PM Care Teams Medical Radiation Dosimetrist Relationship Specialty Start Date End Date Pcp, No . PCP - General 05/19/19 Brian Pabon MD [address] [place] [address] 08/06/11
--- OUTSIDE RECORDS SUMMARY | 2024-07-08 18:18 | XMS_ITS | Continuity of Care Document ---
Author Organization [facility] Address [address] [place] [address] Assessment No assessment recorded. Plan of Treatment Reminders Order Date Submit Date Provider Last Modified By Organization Details Last Modified Time Details Appointments MOUD RETURNING 2023 10:00A M JOYCELYN Johnson Not available Not available Not available Lab None recorded. Referral None recorded. Procedures None recorded. Surgeries None recorded. Imaging None recorded. Medication Orders buprenorp isidra 8 mg-naloxo ne 2 mg sublingua l tablet 2023 024 [id number] [facility] [employer], [address] [facility] [address] [place], [address], 06/14/2024 13:17:28 Patient TargetsNo targets recorded. Patient InstructionsNo instructions recorded. Reason for Referral Mental Health Counselor Refe rral for Opioid dependence, on agonist therapy Referring Physician: Jonelle Rivas [facility], Encounter Date: 05/31/2024 Problems Name Status Onset Date Resolution Date Notes Provider Name and Address Organization Details Recorded Time Chronic obstructive pulmonary disease Active 05/31/20 24 JOYCELYN Johnson [address] [place], [address] , [facility] 05/31/2024 13:27:20 Hyperlipidemia Active 05/31/20 24 JOYCELYN Johnson [address] [place], [address] , [facility] 05/31/2024 13:27:36 Chronic pain Active 05/31/20 24 JOYCELYN Johnson [address] [place], [address] , [place] [facility] 05/31/2024 13:27:45 Opioid dependence Active 05/31/20 24 JOYCELYN Johnson [address] [place] [address], [phone] , [facility] 05/31/2024 13:28:09 Problem Notes None recorded. Medical [...] Available Not Available No t Available Vitals None Recorded Social History None recorded. Functional Status None recorded. Mental Status None recorded. Family History Nothing Reported. Medical History No medical history recorded. Gynecological HistoryNo gynecological history recorded. Obstetrics History GPAL:G 0 P 0 0 0 0 Past Encounters Encounter ID Performer Location Encounter Start Date Encounter Closed Date Diagnosis/Indication Diagnosis SNOMED-CT Code [id number] JOYCELYN Johnson [facility] [address] [place] [address] 05/31/2024 12:00:06 05/31/2024 14:04:32 Opioid dependence, on agonist therapy [id number] JOYCELYN Johnson [facility] [address] [place] [address] 06/14/2024 12:46:11 06/14/2024 13:56:46 Opioid dependence, on agonist therapy [id number] Health Concerns Section Related Observation LastModified by Organization Detai ls LastModified Time None Recorded Concern Status LastModified by Organization Details LastModified Time None Recorded Payers Encounter Date Sequence Insurance Name Policy Number Policy Keyes Covered Member ID Keyes Member ID Guarantor Name 06/14/2024 SLIDING FEE SCHEDULE - DISCOUNT Jessica Hung Notes Date Note Type Note Provider Name and Address Organization Details Recorded Time 06/14/2024 text/html HPI Notes: Geneva thong presents [...] 2/2 cost. Unfortunately was not able to pear picker the rx from [facility] b/c cost was $150. Has continued to [...] situation: living alone in apartment here in [place]. Has a dog. Moved recently. Was homeless for a short time after her sister kicked her out of her house -Supports: Friends/family (is not explicit). - Work: not employed - Legal: None RIPPLER reviewed;: appropriate JOYCELYN Johnson [address] [place], [address], [facility] 06/14/2024 13:17:43 OBGyn Episode No OBEpisode recorded.
[2024-07-08 18:33] LABS: Basophils Absolute Auto 0.03 K/uL (0.00-0.30); Basophils Percent Auto 0.3 % (0.0-3.0); Eosinophils Absolute Auto 0.64 K/uL (0.00-0.50); Hemoglobin* 13.3 gm/dL (12.0-16.0); Immature Granulocytes Abs Auto 0.04 K/uL (0.00-0.30); Immature Granulocytes Pct Auto 0.4 %; Lymphocytes Absolute Auto 3.16 K/uL (0.90-2.90); Lymphocytes Percent Auto 29.4 % (20-44); Mean Corpuscular HGB Conc 32 gm/dL (32-36); Mean Corpuscular Hemoglobin 27 pg (26-34); Mean Corpuscular Volume 86 fL (80-100); Monocytes Percent Auto 6.6 % (0.0-11.0); Neutrophils Absolute Auto 6.17 K/uL (1.7-7.0); Neutrophils Percent Auto 57.3 % (42.0-72.0); Platelet Count* 218 K/uL (140-440); RDW Coefficient of Variation % 13.3 % (11.5-15.5); Red Blood Count 4.87 m/uL (4.00-5.20); White Blood Count* 10.75 K/uL (4.50-11.00)
[2024-07-08 18:39] LABS: Slide Review Reflex No
[2024-07-08 18:49] LABS: Albumin* 3.2 g/dL (3.3-5.0); Chloride* 97 mmol/L (96-114); Sodium* 131 mmol/L (135-149)
[2024-07-08 18:50] LABS: Potassium* 3.4 mmol/L (3.6-5.1)
[2024-07-08 18:52] LABS: Alanine Aminotransferase* 20 U/L (4-35); Alkaline Phosphatase* 74 U/L (40-150); Anion Gap 3 mEq/L (7-15); Aspartate Amino Transferase* 29 U/L (12-35); Bilirubin Total* 0.6 mg/dL (0.1-1.5); Blood Urea Nitrogen* 16 mg/dL (7-30); Carbon Dioxide* 31 mmol/L (20-32); Creatinine* 1.1 mg/dL (0.5-1.5); Est. Creatinine Clearance* 41.04; Estimated Glomerular Filt Rate 58 ml/min
[2024-07-08 18:53] LABS: Calcium* 8.5 mg/dL (8.4-10.6); Glucose* 154 mg/dL (60-115); Magnesium* 1.8 mg/dL (1.5-2.6)
[2024-07-08 18:55] LABS: C Reactive Protein* 2.5 mg/dL (0.5-1.0)
[2024-07-08 19:08] LABS: Ethanol* < 0.01 % (0.01-0.03); NT Pro B Type NatriureticPept* 1770 pg/mL; Troponin I* < 0.01 ng/mL (0.01-0.04)
[2024-07-08 19:35] LABS: Erythrocyte SedimentationRate* 12 mm/hr (2-20)
[2024-07-08] MEDS: MORPHINE 2 MG/ML inj IVP (19:43)
[2024-07-08] MEDS: IPRAT-ALBUT 0.5-2.5 MG/3 ML NEB 1 NEB IH (19:46)
== END 2024-07-08 20:40 | disposition home or self-care (01) ==
PROVIDERS: Emergency Provider Family Medicine
DX: S32.010A Wedge compression fracture of first lumbar vertebra, initial encounter for closed fracture (principal); S32.020A Wedge compression fracture of second lumbar vertebra, initial encounter for closed fracture; W01.0XXA Fall on same level from slipping, tripping and stumbling without subsequent striking against object, initial encounter
CPT/HCPCS: 36415; 70450; 71045; 72125; 72131; 80053; 82077; 83735; 83880; 84484; 85025; 85651; 86140; 93005; 94761; 96374; 99284; J2270; J7030

== ENCOUNTER 2025-06-17 10:39 | Outpatient (CLI) | payer OTHER, SELFPAY | END 2025-06-17 10:40 | disposition home or self-care (01) | PROVIDERS: Visit Provider Internal Medicine | DX: M62.81 Muscle weakness (generalized) (principal); M54.9 Dorsalgia, unspecified | CPT/HCPCS: A0425; A0429 ==

== ENCOUNTER 2025-06-17 11:02 | Inpatient (IN) | payer OTHER, SELFPAY ==
--- OUTSIDE RECORDS SUMMARY | 2009-07-03 15:22 | XMS_ITS | Encounter Summary ---
Author Organization [place] Address [address] [place] [address] Care Team Providers Care Operations Representative Name Role Phone Evan Vega MD Primary Care Provider [phone] Sushil Son MD Unavailable Unavailable Ashley Aj MD Unavailable [phone] Shane Mehta MD Unavailable [phone] Asya Rao DPM Unavailable [phone] Encounter Details Date Type Department Care Team (Late st Contact Info) Description 07/03/2009 3:22 PM CDT [facility] in [address] [phone] Nadia Kenney PA-C [place] [address] Social History Tobacco Use Types Packs/Day Years Used Date Smoking Tobacco: Every Day Cigarettes 1.5 20 Smokeless Tobacco: Never Comments:Quit Smoke program declined 02-24-13 Alcohol Use Standard Drinks/Week Comments No 0 (1 standard drink = 0.6 oz pur e alcohol) Comments No Sex and Gender Information Value Date Recorded Sex Assigned at Not on file Legal Sex Female 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 Gender Identity Not on file Sexual Orientation Not on file 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 Not on file Not on file documented as of this encounter Plan of Treatment Not on file documented as of this encounter Visit Diagnoses Not on filedocumented in this encounter Additional Health Concerns Infection Onset Date Last Indicated Resolved Time Rule Out COVID-19 11/03/2023 11/03/2023 11/03/2023 9:04 PM RETAIL RESET MERCHANDISER documented as of this encounter Care Teams Operations Representative Relationship Specialty Start Date End Date Evan Vega MD [facility] [address] [facility] [address] [place] [address] PCP - General 12/23/00 05/10/13 Sushil Son MD XXX RETIRED XXX 701 [place] [address] PCP - Orthopaedics 12/23/00 01/31/10 Ashley Aj MD [facility] 701 [place] [address] PCP - Obstetrics/Gynecology 12/23/00 Shane Mehta MD [address] [place] [address] PCP - Surgery 12/23/00 01/14/10 Asya Rao DPM [address] [place] [address] PCP - Podiatry 05/27/08 documented as of this encounter
--- OUTSIDE RECORDS SUMMARY | 2009-11-14 08:46 | XMS_ITS | Encounter Summary ---
Author Organization [place] Address [address] [place] [address] Care Team Providers Care Chimney Builder Name Role Phone Evan Vega MD Primary Care Provider [phone] Sushil Son MD Unavailable Unavailable Ashley Aj MD Unavailable [phone] Shane Mehta MD Unavailable [phone] Asya Rao DPM Unavailable [phone] Encounter Details Date Type Department Care Team (Late st Contact Info) Description 11/14/2009 7:46 AM [facility] in [address] [phone] Liss Leyva NP [address] [place] [address] Social History Tobacco Use Types Packs/Day Years Used Date Smoking Tobacco: Every Day Cigarettes 1.5 20 Smokeless Tobacco: Never Comments:Quit Smoke program declined 02-24-13 Alcohol Use Standard Drinks/Week Comments No 0 (1 standard drink = 0.6 oz pur e alcohol) Comments No Sex and Gender Information Value Date Recorded Sex Assigned at Not on file Legal Sex Female 3:26 AM 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 [address] PCP - Orthopaedics 12/23/00 01/31/10 Ashley Aj MD [facility] [address] [place] [address] PCP - Obstetrics/Gynecology 12/23/00 Shane Mehta MD [address] [place] [address] PCP - Surgery 12/23/00 01/14/10 Asya Rao DPM [address] [place] [address] PCP - Podiatry 05/27/08 documented as of this encounter
--- OUTSIDE RECORDS SUMMARY | 2010-01-08 11:03 | XMS_ITS | Encounter Summary ---
Author Organization [place] Address [address] [place] [address] Care Team Providers Care Web Master Name Role Phone Evan Vega MD Primary Care Provider [phone] Sushil Son MD Unavailable Unavailable Ashley Aj MD Unavailable [phone] Shane Mehta MD Unavailable [phone] Asya Rao DPM Unavailable [phone] Encounter Details Date Type Department Care Team (Late st Contact Info) Description 01/08/2010 10:03 AM [facility] in [address] [phone] Asya Rao, DPM [address] [place] [address] Social History Tobacco Use Types Packs/Day Years Used Date Smoking Tobacco: Every Day Cigarettes 1.5 20 Smokeless Tobacco: Never Comments:Quit Smoke program declined 02-24-13 Alcohol Use Standard Drinks/Week Comments No 0 (1 standard drink = 0.6 oz pur e alcohol) Comments No Sex and Gender Information Value Date Recorded Sex Assigned at Not on file Legal Sex Female 3:26 AM [email or web address] Gender Identity Not on file Sexual Orientation [...] Out COVID-19 11/03/2023 11/03/2023 11/03/2023 9:04 PM 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 [address] PCP - Orthopaedics 12/23/00 01/31/10 Ashley Aj MD [facility] 701 [facility] [place] [address] PCP - Obstetrics/Gynecology 12/23/00 Shane Mehta MD [address] [place] [address] PCP - Surgery 12/23/00 01/14/10 Asya Rao DPM [address] [place] [address] PCP - Podiatry 05/27/08 documented as of this encounter
--- OUTSIDE RECORDS SUMMARY | 2010-01-22 13:06 | XMS_ITS | Encounter Summary ---
Author Organization [place] Address [address] [facility] [place] [address] Care Team Providers Care Continuous Towel Roller Name Role Phone Evan Vega MD Primary Care Provider [phone] Sushil Son MD Unavailable Unavailable Ashley Aj MD Unavailable [phone] Asya Rao DPM Unavailable [phone] Douglas Pinedo MD Unavailable [phone] Encounter Details Date Type Department Care Team (Late st Contact Info) Description 01/22/2010 12:06 PM [facility] in [address] [phone] Douglas Pinedo MD [place] [address] Social History Tobacco Use Types Packs/Day Years Used Date Smoking Tobacco: Every Day Cigarettes 1.5 20 Smokeless Tobacco: Never Comments:Quit Smoke program declined 02-24-13 Alcohol Use Standard Drinks/Week Comments No 0 (1 standard drink = 0.6 oz pur e alcohol) Comments No Sex and Gender Information Value Date Recorded Sex Assigned at Not on file Legal Sex Female 3:26 AM [facility] Gender Identity Not on file Sexual Orientation [...] Out COVID-19 11/03/2023 11/03/2023 11/03/2023 9:04 PM 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 documented as of this encounter Care Teams Continuous Towel Roller Relationship Specialty Start Date End Date Evan Vega MD [facility] 701 [facility] [address] [place] [address] PCP - General 12/23/00 05/10/13 Sushil Son MD XXX RETIRED XXX [address] [place] [address] [place] [address] PCP - Orthopaedics 12/23/00 01/31/10 Ashley Aj MD [facility] 701 [facility] [place] [address] PCP - Obstetrics/Gynecology 12/23/00 Asya Rao DPM [facility] 701 [facility] [place] [address] PCP - Podiatry 05/27/08 Douglas Pinedo MD XXX [place] [address] PCP - Surgery Surgery 01/15/10 12/15/17 documented as of this encounter
--- OUTSIDE RECORDS SUMMARY | 2010-02-02 09:30 | XMS_ITS | Encounter Summary ---
Author Organization [place] Address [address] [facility] [place] [address] Care Team Providers Care Electrician Marine Name Role Phone Evan Vega MD Primary Care Provider [phone] Ashley Aj MD Unavailable [phone] Asya RaoM Unavailable [phone] Douglas Pinedo MD Unavailable [phone] Thaddeus Irene MD Unavailable Unavailable Kevin Strickland MD Unavailable Encounter Details Date Type Department Care Team (Late st Contact Info) Description 02/02/2010 8:30 AM [facility] in [address] [phone] Thaddeus Irene MD Social History Tobacco Use Types Packs/Day Years Used Date Smoking Tobacco: Every Day Cigarettes 1.5 20 Smokeless Tobacco: Never Comments:Quit Smoke program declined 02-24-13 Alcohol Use Standard Drinks/Week Comments No 0 (1 standard drink = 0.6 oz pur e alcohol) Comments No Sex and Gender Information Value Date Recorded Sex Assigned at Not on file Legal Sex Female 3:26 AM [facility] Gender Identity Not on file Sexual Orientation [...] Out COVID-19 11/03/2023 11/03/2023 11/03/2023 9:04 PM WRAPPER HANDS 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 701 [facility] [place] [address] PCP - Obstetrics/Gynecology 12/23/00 02/13/[address] [facility] 701 [facility] [place] [address] PCP - Podiatry 05/27/08 Douglas Pinedo MD XXX [place] [address] PCP - Surgery Surgery 01/15/10 12/15/17 Thaddeus Irene MD XXX [place] [address] PCP - Orthopaedics Orthopedics 02/01/10 03/14/13 Kevin Strickland MD [facility] 701 [place] [address] PCP - Ophthalmology Ophthalmology 02/02/10 documented as of this encounter
--- OUTSIDE RECORDS SUMMARY | 2010-02-06 07:16 | XMS_ITS | Encounter Summary ---
Author Organization [place] Address [address] [facility] [place] [address] Care Team Providers Care Roller Helper Name Role Phone Evan Vega MD Primary Care Provider [phone] Ashley Aj MD Unavailable [phone] Asya Rao DPM Unavailable [phone] Douglas Pinedo MD Unavailable [phone] Thaddeus Irene MD Unavailable Unavailable Kevin Strickland MD Unavailable Encounter Details Date Type Department Care Team (Late st Contact Info) Description 2010 6:16 AM [facility] in [address] [phone] Thaddeus Irene MD Social History Tobacco Use Types Packs/Day Years Used Date Smoking Tobacco: Every Day Cigarettes 1.5 20 Smokeless Tobacco: Never Comments:Quit Smoke program declined 02-24-13 Alcohol Use Standard Drinks/Week Comments No 0 (1 standard drink = 0.6 oz pur e alcohol) Comments No Sex and Gender Information Value Date Recorded Sex Assigned at Not on file 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 POSTOPERATIVE DIAGNOSIS: Chronic Achilles tendinitis right ankle. OPERATION: Exploration of Achilles tendon right ankle with tendon sheath release. SURGEON: Thaddeus Irene M.D. ANESTHESIA: Regional, popliteal block anesthesia. ESTIMATED BLOOD LOSS: None. INDICATIONS: This patient for several months has had an area of fusiform swelling in the right Achilles tendon which is painful and unresponsive to conservative therapy of many different sorts. Surgical intervention was, therefore, decided upon. The patient had a preoperative MR scan which did show an area of granulation tissue in the area of fusiform swelling. This was 2-3 centimeters proximal to the superior pole of the calcaneus. In addition to exploration and Achilles sheath release, possible partial ostectomy of the calcaneus with removal of the superior pole was to be considered at the time of surgery. DESCRIPTION OF OPERATION: Under satisfactory popliteal block anesthesia the patient was positioned in the prone position and prepped and draped in the usual manner. A tourniquet was placed about the proximal calf area and after wrapping the leg with an Esmarch it was expanded to operative level. A medial incision was made along the Achilles tendon after infiltration of the skin with 1% Xylocaine containing epinephrine. The incision was carried down a centimeter or so beyond the superior pole of the calcaneus. With gentle tissue handling dissection was carried down to the Achilles sheath and the sheath released all the way from the calcaneus up to the musculotendinous junction. Exploration of the tendon itself revealed the presence of the fusiform enlargement as had been noted. The area was probed with a 22 gauge needle both for stimulation of healing and also exploration. With one insertion a small amount of fluid came back and a 2-3 millimeter longitudinal incision was made over that point and there was found to be a cystic area. Multiple fine needle holes were made to help stimulate healing. Attention was then directed to the retrocalcaneal bursa. There actually was no true retrocalcaneal bursa and the Achilles insertion actually extended quite far superior in the posterior aspect of the calcaneus. There was no evidence of any kind of tissue reaction in that region and that combined with the x-ray appearance of the calcaneus led to the decision not to remove any bone. The wound was, therefore, closed with running 3-0 Vicryl in the subcutaneous layer and 4-0 Prolene in the skin. Betadine dressing, dry surgical dressing, fluffy dressing and plaster splints were applied with the foot allowed to assume a neutral position. Tourniquet was then released. The patient tolerated the procedure well and was forwarded to the recovery area in satisfactory condition. Thaddeus Irene M.D. CEE/fercho cc: TRUCTION SKILLS TEACHER documented in this encounter Plan of Treatment Not on file documented as of this encounter Visit Diagnoses Not on filedocumented in this encounter Additional Health Concerns Infection Onset Date Last Indicated Resolved Time Rule Out COVID-19 11/03/2023 11/03/2023 11/03/2023 9:04 PM CONSTRUCTION SKILLS TEACHER documented as of this encounter Care Teams Roller Helper Relationship Specialty Start Date End Date Evan Vega MD [facility] [address] [place] [address] [address] [place] [address] PCP - General 12/23/00 05/10/13 Ashley Aj MD [facility] [address] [place] [address] PCP - Obstetrics/Gynecology 12/23/00 02/13/12 Asya Rao DPM [facility] [address] [place] [address] PCP - Podiatry 05/27/08 Douglas Pinedo MD [place] [address] PCP - Surgery Surgery 01/15/10 12/15/17 Thaddeus Irene MD XXX NO INFO FOUND XXX [place] [address] PCP - Orthopaedics Orthopedics 02/01/10 03/14/13 Kevin Strickland MD [address] [place] [address] PCP - Ophthalmology Ophthalmology 02/02/10 documented as of this encounter
--- OUTSIDE RECORDS SUMMARY | 2010-06-18 20:35 | XMS_ITS | Encounter Summary ---
Author Organization [place] Address [address] [facility] [place] [address] Care Team Providers Care Seeing Eye Dog Teacher Name Role Phone Evan Vega MD Primary Care Provider [phone] Ashley Aj MD Unavailable [phone] Asya RaoM Unavailable [phone] Douglas Pinedo MD Unavailable [phone] Thaddeus Irene MD Unavailable Unavailable Kevin Strickland MD Unavailable Encounter Details Date Type Department Care Team (Late st Contact Info) Description 06/18/2010 8:35 PM T [facility] in [address] [phone] Kenton Nogueira MD [address] [phone] Social History Tobacco Use Types Packs/Day Years Used Date Smoking Tobacco: Every Day Cigarettes 1.5 20 Smokeless Tobacco: Never Comments:Quit Smoke program declined 02-24-13 Alcohol Use Standard Drinks/Week Comments No 0 (1 standard drink = 0.6 oz pur e alcohol) Comments No Sex and Gender Information Value Date Recorded Sex Assigned at Not on file Legal Sex Female 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 [place] [address] [place] [address] PCP - General 12/23/00 05/10/13 Ashley Aj MD [facility] [address] [place] [address] PCP - Obstetrics/Gynecology 12/23/00 02/13/12 Asya Rao DPM [facility] [address] [place] [address] PCP - Podiatry 05/27/08 Douglas Pinedo MD [place] [address] PCP - Surgery Surgery 01/15/10 12/15/17 Thaddeus Irene MD XXX [place] [address] PCP - Orthopaedics Orthopedics 02/01/10 03/14/13 Kevin Strickland MD [facility] [address] [place] [address] PCP - Ophthalmology Ophthalmology 02/02/10 documented as of this encounter
--- OUTSIDE RECORDS SUMMARY | 2011-04-08 11:18 | XMS_ITS | Encounter Summary ---
Author Organization [place] Address [address] [facility] [place] [address] Care Team Providers Care Resident Hall Director Name Role Phone Evan Vega MD Primary Care Provider [phone] Ashley Aj MD Unavailable [phone] Asya Rao DPM Unavailable [phone] Douglas Pinedo MD Unavailable [phone] Thaddeus Irene MD Unavailable Unavailable Kevin Strickland MD Unavailable Encounter Details Date Type Department Care Team (Late st Contact Info) Description 04/08/2011 11:18 AM T [facility] in [facility] [address] [place] [address] [place] [address] Evan Vega MD [address] [place], [place] [id number] Social History Tobacco Use Types Packs/Day Years Used Date Smoking Tobacco: Every Day Cigarettes 1.5 20 Smokeless Tobacco: Never Comments:Quit Smoke program declined 02-24- Alcohol Use Standard Drinks/Week Comments No 0 (1 standard drink = 0.6 oz pur e alcohol) Comments No Sex and Gender Information Value Date Recorded Sex Assigned at Not on file Legal Sex Female 3:26 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 701 [place] [address] PCP - Obstetrics/Gynecology 12/23/00 02/13/[address] [facility] [address] [place] [address] PCP - Podiatry 05/27/08 Douglas Pinedo MD [place] [address] PCP - Surgery Surgery 01/15/10 12/15/17 Thdadeus Irene MD [place] [address] PCP - Orthopaedics Orthopedics 02/01/10 03/14/13 Kevin Strickland MD [facility] [address] [facility] [place] [address] PCP - Ophthalmology Ophthalmology 02/02/10 documented as of this encounter
--- OUTSIDE RECORDS SUMMARY | 2011-05-09 14:00 | XMS_ITS | Encounter Summary ---
Author Organization [place] Address [address] [place] [address] Care Team Providers Care Venetian Blind Washer Name Role Phone Evan Vega MD Primary Care Provider [phone] Ashley Aj MD Unavailable [phone] Asya RaoM Unavailable [phone] Douglas Pinedo MD Unavailable [phone] Thaddeus Irene MD Unavailable Unavailable Kevin Strickland MD Unavailable Encounter Details Date Type Department Care Team (Late st Contact Info) Description 05/09/2011 2:00 PM T [facility] in [facility] [address] [place] [address] Ambar Arthur MD [facility] [facility] [address] [place] [id number] Social History Tobacco Use Types Packs/Day Years Used Date Smoking Tobacco: Every Day Cigarettes 1.5 20 Smokeless Tobacco: Never Comments:Quit Smoke program declined 02-24-13 Alcohol Use Standard Drinks/Week Comments No 0 (1 standard drink = 0.6 oz pur e alcohol) Comments No Sex and Gender Information Value Date Recorded Sex Assigned at Not on file Legal Sex Female 3:26 AM CHICKEN PICKER Gender Identity Not on file Sexual Orientation [...] Out COVID-19 11/03/2023 11/03/2023 11/03/2023 9:04 PM CHICKEN PICKER documented as of this encounter Care Teams Venetian Blind Washer Relationship Specialty Start Date End Date Evan Vega MD [facility] [place] [address] [place] [address] PCP - General 12/23/00 05/10/[address] [facility] [address] [place] [address] PCP - Obstetrics/Gynecology 12/23/00 02/13/12 Asya Rao DPM [facility] 701 [place] [address] PCP - Podiatry 05/27/08 Douglas Pinedo MD [place] [address] PCP - Surgery Surgery 01/15/10 12/15/17 Thaddeus Irene MD XXX [place] [address] PCP - Orthopaedics Orthopedics 02/01/10 03/14/13 Kevin Strickland MD [facility] [address] [place] [address] PCP - Ophthalmology Ophthalmology 02/02/10 documented as of this encounter
--- OUTSIDE RECORDS SUMMARY | 2011-11-15 15:00 | XMS_ITS | Encounter Summary ---
Author Organization [place] Address [address] [facility] [place] [address] Care Team Providers Care Shirt Folder Name Role Phone Evan Vega MD Primary Care Provider [phone] Ashley Aj MD Unavailable [phone] Asya Rao DPM Unavailable [phone] Douglas Pinedo MD Unavailable [phone] Thaddeus Irene MD Unavailable Unavailable Kevin Strickland MD Unavailable Encounter Details Date Type Department Care Team (Late st Contact Info) Description 11/15/2011 2:[address] [facility] in [facility] [address] [place] [phone] Evan Vega MD [address] [place], [place] [id number] Social History Tobacco Use Types Packs/Day Years Used Date Smoking Tobacco: Every Day Cigarettes 1.5 20 Smokeless Tobacco: Never Comments:Quit Smoke program declined 02-24-13 Alcohol Use Standard Drinks/Week Comments No 0 (1 standard drink = 0.6 oz pur e alcohol) Comments No Sex and Gender Information Value Date Recorded Sex Assigned at Not on file Legal Sex Female 3:26 AM [facility] Gender Identity Not on file Sexual Orientation [...] Out COVID-19 11/03/2023 11/03/2023 11/03/2023 9:04 PM SEM MANAGER documented as of this encounter Care Teams Shirt Folder Relationship Specialty Start Date End Date Evan Vega MD [facility] [place] [address] [place] [address] PCP - General 12/23/00 05/10/13 Ashley Aj MD [facility] [address] [place] [address] PCP - Obstetrics/Gynecology 12/23/00 02/13/12 Asya Rao DPM [facility] [address] [place] [address] PCP - Podiatry 05/27/08 Douglas Pinedo MD XXX [place] [address] PCP - Surgery Surgery 01/15/10 12/15/17 Thaddeus Irene MD [place] [address] PCP - Orthopaedics Orthopedics 02/01/10 03/14/13 Kevin Strickland MD [facility] [address] [place] [address] PCP - Ophthalmology Ophthalmology 02/02/10 documented as of this encounter
[2025-06-17] VITALS (7 sets, daily range): BP systolic 93–116; BP diastolic 59–85; PULSE 49–81; RESP 12–20; TEMP 35.9–37.1; O2SAT 92–97; BMI 23.8; BMI 21.7; BMI 21.8
--- NOTE | 2025-06-17 | CRLHL7_ITS ---
For Patients: As a result of the Century Cures Act, medical imaging exams and procedure reports are released immediately into your electronic medical record. You may view this report before your referring provider. If you have questions, please contact your health care provider. INDICATION: Right upper quadrant pain. TECHNIQUE: Limited right upper quadrant ultrasound examination of the abdomen was performed. Grayscale and color Doppler images were obtained. COMPARISON: CT chest abdomen pelvis 06/17/2025. FINDINGS: Liver: Normal in size and contour. The hepatic echotexture is normal. No suspicious hepatic masses. Gallbladder: Gallbladder is normal in size. Biliary sludge. No cholelithiasis. Sonographic Escalera sign was positive. Common bile duct: Measures 10 mm. Pancreas: Visualized portions unremarkable. Right kidney: Normal in size. No hydronephrosis. No suspicious renal masses or obstructive urinary calculus. Vascular: Visualized aorta and IVC are unremarkable. IMPRESSION: Biliary sludge with dilated common bile duct and positive sonographic Escalera`s sign, equivocal for acute cholecystitis. Consider nuclear medicine HIDA scan or MRCP for further evaluation. Dictated by Arpit Smith MD @ 06/17/2025 5:40:26 PM (Electronically Signed)
--- OUTSIDE RECORDS SUMMARY | 2025-06-17 11:06 | XMS_ITS ---
Author Organization [facility] Address [facility] [place] [address] Care Team Providers Care Relief Map Modeler Name Role Phone SvitlanaAsya jang Eugenie DPM Unavailable [phone] Kevin Strickland MD Unavailable Tyrese Rouse MD Unavailable [phone] Frw, None Unavailable Unavailable Facundo Mark MD Unavailable [phone] Unavailable Gab Wiseman MD Unavailable Gab Wiseman MD Primary Care Provider [phone] Diabetes Self-Management Education Status:Identified (Enrolling) Start date:12/15/2023 Continued Care and Services Coordination
--- OUTSIDE RECORDS SUMMARY | 2025-06-17 11:06 | XMS_ITS | Encounter Summary ---
Author Organization [place] Address [address] [place] [place] [address] Care Team Providers Care Puppet Master Name Role Phone Evan Vega MD Primary Care Provider [phone] Asya Rao DPM Unavailable [phone] Douglas Pinedo MD Unavailable [phone] Thaddeus Irene MD Unavailable Unavailable Kevin Strickland MD Unavailable Tyrese Rouse MD Unavailable [phone] Frw, None Unavailable Unavailable Facundo Mark MD Unavailable [phone] Lali Knight MD Primary Care Provider Unavailab Evan Huang MD Primary Care Provider [phone] Unavailable Gab Wiseman MD Unavailable Gab Wiseman MD Primary Care Provider [phone] Reason for Visit * Reason Onset Date Comments Refill Request 05/22/2012 Hctz 25mg, Omepr azole 20mg Encounter Details Date Type Department Care Team (Late st Contact Info) Description 05/22/2012 Refill [facility] in [facility] [address] [place] [id number] Evan Vega MD [place] [address] [address] [facility] [address] [place] [address] Refill Request (Hctz 25mg, Omeprazole 20mg) Social History Tobacco Use Types Packs/Day Years Used Date Smoking Tobacco: Every Day Cigarettes 1.5 20 Smokeless Tobacco: Never Comments:Quit Smoke program declined 05/21/12 Alcohol Use Standard Drinks/Week Comments No 0 (1 standard drink = 0.6 oz pur e alcohol) Comments No Sex and Gender Information Value Date Recorded Sex Assigned at Not on file Legal Sex Female 3:26 AM TELEPHONE OPERATOR RECEPTIONIST Gender Identity Not on file Sexual Orientation Not on file 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 Or should pt come in ?. * Telephone Encounter - Tequila Cuevas - 05/22/2012 4:41 PM CDT Last visit: BP Readings from Last 1 Encounters: 05/21/12 116/68 Unable to approve medication per the RN refill protocol due to: - Incomplete labs with exclusionary diagnosis. PCP please review Hypercholesterolemia Labs: AST 23 10/23/2010 ALT 22 10/23/2010 CHOL 228 05/13/2012 TRIG 193 05/13/2012 HDL 46 05/13/2012 LDL 143 05/13/2012 CAD/HTN and/or CHF labs: CR 1.04 05/13/2012 POTASSIUM 3.9 05/13/2012 * Telephone Encounter - Napoleon Jade - 05/22/2012 1:05 PM CDT Patient is requesting a refill on Omeprazole 20mg # 90 l/f 10/21/2011, Hctz 25mg # 90 l/f 10/21/2011 documented in this encounter Plan of Treatment Not on file documented as of this encounter Visit Diagnoses Diagnosis ELEV BL PRES W/O HYPERTN- Primary Elevated blood pressure reading without diagnosis of hypertension documented in this encounter Additional Health Concerns Infection Onset Date Last Indicated Resolved Time Rule Out COVID-19 11/03/2023 11/03/2023 11/03/2023 9:04 PM TELEPHONE OPERATOR RECEPTIONIST documented as of this encounter Care Teams Puppet Master Relationship Specialty Start Date End Date Evan Vega MD [facility] [place] [address] [place] [address] PCP - General 12/23/00 05/10/13 Asya Rao DPM [facility] [place] [address] [place] [address] PCP - Podiatry 05/27/08 Douglas Pinedo MD [place] [address] PCP - Surgery Surgery 01/15/10 12/15/17 Thaddeus Irene MD [place] [address] PCP - Orthopaedics Orthopedics 02/01/10 03/14/13 Kevin Strickland MD [facility] [place] [address] [place] [address] PCP - Ophthalmology Ophthalmology 02/02/10 Tyrese Rouse MD [facility] [place] [address] [place] [id number] PCP - ENT ENT-Otolaryngology 11/27/11 Frw, None PCP - Obstetrics/Gynecology Family Practice 02/14/12 Facundo Mark MD PCP - Orthopaedics Orthopedics 03/15/13 Lali Knight MD PCP - General Family Practice 05/11/13 08/11/13 Evan Vega MD [facility] [address] [facility] [address] [facility] [address] [place] [address] PCP - General Family Practice 08/12/13 01/08/24 Gab Wiseman MD [address] [place] [address] PCP - General Family Medicine 01/09/24 Louisa Montero, [facility] [address] [place] [address] Registered Dietitian Dietitian, Registered 12/15/23 Gab Wiseman MD [address] [place] [address] Assigned PCP 12/25/23 documented as of this encounter
--- OUTSIDE RECORDS SUMMARY | 2025-06-17 11:06 | XMS_ITS | Encounter Summary ---
Author Organization [facility] Address [address] [place] [address] Care Team Providers Care Vp Of Technology Name Role Phone SvitlanaAsya jang Eugenie DPM Unavailable [phone] Douglas Pinedo MD Unavailable [phone] Kevin Strickland MD Unavailable Tyrese Rouse MD Unavailable [phone] Frw, None Unavailable Unavailable Facundo Mark MD Unavailable [phone] Lali Knight MD Primary Care Provider Unavailab Evan Huang MD Primary Care Provider [phone] Unavailable Gab Wiseman MD Unavailable Gab Wiseman MD Primary Care Provider [phone] Reason for Visit * Reason Onset Date Comments Refill Request 07/26/2013 celebrex, cymbal ta Encounter Details Date Type Department Care Team (Late st Contact Info) Description 07/26/2013 Refill [facility] in 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 Unable to approve medication per the RN refill protocol due to: - Provider not in refill pool-Cymbalta prescribed by Vivienne Ferro RN -Routing to PCP to advise. * Telephone Encounter - Violet Arthur - 07/26/2013 10:43 AM CDT Received refill request from patient/pharmacy medication pended for review. documented in this encounter Plan of Treatment Not on file documented as of this encounter Visit Diagnoses Diagnosis Lumbago- Primary documented in this encounter Additional Health Concerns Infection Onset Date Last Indicated Resolved Time Rule Out COVID-19 11/03/2023 11/03/2023 11/03/2023 9:04 PM RIBBON INKER documented as of this encounter Care Teams Vp Of Technology Relationship Specialty Start Date End Date Asya Rao DPM PCP - Podiatry 05/27/08 Douglas Pinedo MD XXX NO INFO FOUND [address] [place] [address] PCP - Surgery Surgery 01/15/10 12/15/17 Kevin Strickland MD [facility] [place] [address] [place] [address] PCP - Ophthalmology Ophthalmology 02/02/10 Tyrese Rouse MD [facility] [place] [address] [place] [address] PCP - ENT ENT-Otolaryngology 11/27/11 Frw, None PCP - Obstetrics/Gynecology Family Practice 02/14/12 Facundo Mark MD PCP - Orthopaedics Orthopedics 03/15/13 Lali Knight MD PCP - General Family Practice 05/11/13 08/11/13 Evan Vega MD [facility] [place] [address] [facility] [address] [place] [address] PCP - General Family Practice 08/12/13 01/08/24 Gab Wiseman MD [address] [place] [address] PCP - General Family Medicine 01/09/24 Louisa Montero, [facility] [address] [place] [address] Registered Dietitian Dietitian, Registered 12/15/23 Gab Wiseman MD [address] [place] [address] Assigned PCP 12/25/23 documented as of this encounter
--- OUTSIDE RECORDS SUMMARY | 2025-06-17 11:06 | XMS_ITS | Clinical Summary ---
Author Organization [facility] Address [address] [place] [address] Care Team Providers Care Paver Installer Name Role Phone Brian Pabon MD Unavailable [phone] Pcp, No Primary Care Provider Unavailabl e [...] 05/27/2014 Sulfa (Sulfonamide Antibiotics) Itching 05/27/2014 Medications omeprazole (PRILOSEC) 20 mg Delayed-Release capsule Take 20 mg by mouth once daily before a meal. Active traZODone (DESYREL) 100 mg tablet Take 100 mg by mouth at bedtime if needed for Sleep. Active ibuprofen (ADVIL; MOTRIN) 200 mg cap Take 800 mg by mouth 4 times daily if needed for Pain. Active fluticasone (50 mcg per actuation) nasal solution (FLONASE) Inhale 1 [place] in the nostril(s). 08/07/20 17 Active albuterol-ipratr opium (DUONEB) (2.5-0.5 mg) in 3 mL NEBULIZATION solution Inhale 3 mL by mouth. 07/31/20 16 Active busPIRone (BUSPAR) 10 mg tablet Take 10 mg by mouth three times daily. 09/29/20 Active atorvastatin (LIPITOR) 40 mg tablet Take 40 mg by mouth once daily. 08/06/20 Active FLUoxetine (PROZAC) 40 mg capsule Take 40 mg by mouth once daily. Take with 20 mg for total daily dose of 60 mg 09/11/20 Active FLUoxetine (PROZAC) 20 mg capsule Take 20 mg by mouth once daily. Take with 40 mg for total daily dose of 60 mg 09/11/20 Active fluticasone propion-salmeter oL (ADVAIR) 250-50 mcg/Dose diskus inhaler Inhale 1 Puff by mouth two times daily. RINSE MOUTH AFTER USE WITH WATER TO REDUCE AFTERTASTE AND INCIDENCE OF CANDIDIASIS, DO NOT SWALLOW. 09/03/20 Active nystatin powder (MYCOSTATIN) powder Apply topically to affected area(s) each time if needed (as needed under breasts). Apply powder topically as directed under breasts Active propranoloL (INDERAL) 40 mg tablet Take 1 Tablet by mouth two times daily. 05/01/20 Active SUMAtriptan (IMITREX) 50 mg tablet Take 50 mg by mouth one time if needed for Migraine. May repeat dose once in 2 hours if migraine is unresolved. Do not exceed 200 mg in 24 hours 01/17/20 Active acetaminophen (TYLENOL EXTRA STRGTH) 500 mg tablet Take 1,000 mg by mouth every 6 hours if needed for Pain, Headache or Temp > (Specify). 12/09/19 Active albuterol HFA (PRO-AIR; VENTOLIN; PROVENTIL) 90 mcg/actuation inhaler Inhale 2 Puffs by mouth every 4 hours if needed for Shortness Of Breath or Wheezing. 09/03/20 Active hydrOXYzine pamoate (VISTARIL) 25 mg capsuleIndicatio ns:Generalized anxiety disorder Take 1-2 Capsules (25-50 mg) by mouth every 8 hours if needed for Anxiety. 45 Capsule 10/27/20 Active oxyCODONE 10 mg tablet Take 10 mg by mouth every 6 hours if needed for Pain. 10/13/20 23 Active furosemide (LASIX ORAL) Take 10 mg by mouth. Active LORazepam (ATIVAN) 0.5 mg tabIndications:A nxiety Take one-half to 1 Tablet (0.25-0.5 mg) by mouth every 6 hours if needed for Anxiety. 5 Tablet 11/04/2023 1:32 PM REHABILITATION MANAGER 11/04/20 23 Active cholecalciferol, Vitamin D3, (Vitamin D-3) 2,000 unit tablet Take 2,000 units by mouth once daily. Active potassium chloride (KLOR-CON M20) 20 mEq extended-release tablet (part/cryst) Take 20 mEq by mouth once daily with a meal. Active rx oxyCODONE-acetam inophen, 5-325 mg, (PERCOCET 5-325) tablet (ED DC MED)Indications: Acute exacerbation of chronic low back pain Take 1 Tablet by mouth every 4 hours if needed (pain). 02/18/20 24 Active oxyCODONE-acetam inophen (PERCOCET) 5-325 mg per tabletIndication s:Acute exacerbation of chronic low back pain Take 1 Tablet by mouth every 4 hours if needed for Pain. Max acetaminophen dose: 4000mg in 24 hrs. 10 Tablet 02/18/20 24 Active predniSONE (DELTASONE) 20 mg tabletIndication s:COPD exacerbation (HC) Take 2 Tablets (40 mg) by mouth once daily. 10 Tablet 05/21/20 24 Active Active Problems Problem Noted Date Diagnosed Date COPD exacerbation 11/04/2023 Anxiety 11/04/2023 Acute exacerbation of COPD with asthma 3 Congestive heart failure (CHF) 10/10/2023 Hypokalemia 10/10/2023 Back pain 05/21/2019 Mild intermittent asthma 08/13/2016 Generalized anxiety disorder 04/24/2016 Chronic pain syndrome 10/26/2014 Overview (05/24/2019): Chronic pain syndrome She has chronic pain due to chronic low back pain (prior lumbar surgeries), chronic migraine headache and chronic knee pain. On Celebrex daily along with Cymbalta and prn zanaflex. [facility] rehab 2013 Essential hypertension 10/26/2014 Overview (05/24/2019): Losartan and hydrochlorothiazide Gastro-esophageal reflux disease without esophag itis 10/26/2014 Recurrent major depressive disorder 10/26/2014 Overview (05/24/2019): Cymbalta BuSpar for anxiety Depression 06/02/2014 Spinal stenosis, lumbar lynsey on, with neurogenic claudication 06/01/2014 Acquired spondylolisthesis 06/01/2014 Chemical dependency 06/01/2014 Overview (05/24/2019): H/o of benzodiazepine and opiate abuse. Went through rehabilitation in 2012 at [facility]. Arthrodesis status 06/01/2014 Herpes simplex 02/26/2014 Overview (05/24/2019): HSV 1, oral Hyperlipidemia 03/22/2003 Overview (05/24/2019): Statin Immunizations Immunization Administration Dates Next Due COVID-19 VACCINE SPIKEVAX (M ODERNA 50MCG/0.5ML) 12YO+ PFS 10/27/2023 Influenza Virus, Unspecified 08/22/2017, 10/19/2014,09/01/2013,2011,08/21/2011,09/04/2010,09/25/2009,0 08/24/2008,10/16/2007,09/23/2006, [...] 4 10/27/2023 Social Connections Answer Date Recorded Do you often feel lonely or isolated from those around you? 0 11/04/2023 Financial Resource Strain Answer Date R ecorded Difficulty of Paying Living Expenses 3 10/10/2023 Difficulty of Paying Living Expenses Not on file 10/10/2023 Food Insecurity Answer Date Recorded Do you worry your food will run out before you are able to buy more? 1 11/04/2023 Transportation Needs Answer Date Record ed Does lack of transportation keep you from medica l appointments? 1 11/04/2023 Does lack of transportation keep you from work, meetings or getting things that you need? 1 11/04/2023 Housing Stability Answer Date Recorded What is your housing situation today? 1 11/04/2023 Interpersonal Safety Answer Date Record ed Are you being hit, kicked, p ushed or yelled at (see row info)? No 05/21/2024 Interpersonal Safety Abuse 12 - 18 Not on file 05/21/2024 Interpersonal Safety Ambulatory Vulnerability No t on file 05/21/2024 Utilities Answer Date Recorded Do you have trouble paying f or utilities (for example, heat, electricity, water, phone)? 1 11/04/2023 Comments No Sex and Gender Information Value Date Recorded Sex Assigned at Not on file Legal Sex Female 6:37 AM REHABILITATION MANAGER Gender Identity Not on file Sexual Orientation Not on file Obstetrics History Last Filed Vital Signs Vital Sign Reading Time Taken Comments Blood Pressure 148/92 05/21/2024 5:19 PM CDT Pulse 50 05/21/2024 5:19 PM CDT Temperature 36.4 C (97.6 F) 05/21/2024 3:24 PM CDT Respiratory Rate 22 05/21/2024 5:19 PM CDT [...] age 15-65 02/05/1979 Hepatitis C screening for age 18-79 02/05/1982 Pap test for age 21-65 02/05/1985 Colonoscopy through age 75 02/05/2009 Lipids for age 45-75 02/05/2009 Mammogram for age 45-75 02/05/2009 Zoster (shingles) series for age 50+ (1 of 2) 02/05/2014 RSV vaccine for adults or (1 - Risk 60-74 years 1-dose series) 2024 COVID-19 vaccine series (2023- season) 2024 10/27/2023, 12/18/2022, 04/19/2022, Additional history exists BMI (ht and wt on same day) for age 18+ 10/27/2024 10/27/2023, 05/24/2019 Depression screening for age 12+ 10/27/2024 10/27/2023 Influenza Vaccine (#1) 2025 , 12/18/2022, 10/22/2021, Additional history exists Tetanus booster 06/01/2026 06/01/2016, 01/2008, 12/04/2004, Additional history exists Pneumococcal series for age 50+ Completed 01/17/2023, 08/22/2017 Hepatitis B series for 19+ Aged Out N o longer eligible based on patient's age to complete this topic Medical Devices Implanted Type Area Ict Educator Device Identifier Shelf Expiration Date Model / Serial / Lot Milton 4.0cmx5.5mm Pre-Cut - [id number] Implanted:Qty: 1 on 05/31/2014 at [facility] Spine Implants Spine Medtronic Spine/Ortho [id number]# / / [id number] 30cc Mtf Chips Canclls Pouch [[id number]] Implanted:Qty: 1 on 05/31/2014 at [facility] Explanted:(Everardo irizarry not on file) Spine Musculoskeletal Transplant 09/21/2016 [id number]# / [id number] Katiuska / Matheus 12x22 - [id number] Implanted:Qty: 1 on 05/31/2014 at [facility] Spine Medtronic Spine/Ortho [id number]# / / [id number] Set Screw 3dx - [id number] Implanted:Qty: 4 on 05/31/2014 at [facility] Spine Medtronic Spine/Ortho [id number]# / / Cnnctr Tsrh 3dx Sm - [id number] Implanted:Qty: 4 on 05/31/2014 at [facility] Spine Medtronic Spine/Ortho [id number]# / / Screw Osteogrip 6.5x40mm - [id number] Implanted:Qty: 4 on 05/31/2014 at [facility] Spine Medtronic Spine/Ortho [id number]# / / Milton 3.5cmx5.5mm Pre-Cut - [id number] Implanted:Qty: 1 on 05/31/2014 at [facility] Spine Medtronic Spine/Ortho [id number]# / / Advance Directives * Full Code (Latest Code [...] 7:13 AM 06/05/2014 2:03 PM Care Teams Paver Installer Relationship Specialty Start Date End Date Pcp, No . PCP - General 05/19/19 Brian Pabon MD [address] [place] [address] 08/06/11
--- OUTSIDE RECORDS SUMMARY | 2025-06-17 11:06 | XMS_ITS | Encounter Summary ---
Author Organization [facility] Address [address] [place] [address] Care Team Providers Care Whey Department Operator Name Role Phone Evan Vega MD Primary Care Provider [phone] Sushil Son MD Unavailable Unavailable Ashley Aj MD Unavailable [phone] Shane Mehta MD Unavailable [phone] Asya Rao DPM Unavailable [phone] Douglas Pinedo MD Unavailable [phone] Thaddeus Irene MD Unavailable Unavailable Kevin Strickland MD Unavailable Tyrese Rouse MD Unavailable + [phone] Frw, None Unavailable Unavailable Facundo Mark MD Unavailable [phone] Lali Knight MD Primary Care Provider Unavailab Evan Huang MD Primary Care Provider [phone] Unavailable Gab Wiseman MD Unavailable Gab Wiseman MD Primary Care Provider [phone] Reason for Visit * Reason Onset Date Comments Refill Request 02/22/2005 Encounter Details Date Type Department Care Team (Late st Contact Info) Description 02/22/2005 Refill [facility] [place] [facility] [address] [place] [address] Sushil Son MD XXX RETIRED XXX [address] [facility] [place] [address] Refill Request Social History Tobacco Use Types Packs/Day Years Used Date Smoking Tobacco: Every Day Cigarettes 1 20 Comments:info declined01/09/05 Alcohol Use Standard Drinks/Week Comments No 0 (1 standard drink = 0.6 oz pur e alcohol) Comments No Sex and Gender Information Value Date Recorded Sex Assigned at Not on file Legal Sex Female 3:26 AM PERMANENT MOLD SUPERVISOR Gender Identity Not on file Sexual Orientation Not on file 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 Not on file Not on file documented as of this encounter Plan of Treatment Not on file documented as of this encounter Visit Diagnoses Diagnosis Intervertebral lumbar disc disorder with myelopathy, lumbar region Lumbago Primary localized osteoarthrosis, lower leg Open wound of knee, leg (except thigh), and ankle, complicated documented in this encounter Additional Health Concerns Infection Onset Date Last Indicated Resolved Time Rule Out COVID-19 11/03/2023 11/03/2023 11/03/2023 9:04 PM PERMANENT MOLD SUPERVISOR documented as of this encounter Care Teams Whey Department Operator Relationship Specialty Start Date End Date Evan Vega MD [facility] [address] [place] [address] PCP - General 12/23/00 05/10/13 Sushil Son MD [facility] [place] [address] PCP - Orthopaedics 12/23/00 01/31/10 Ashley Aj MD [facility] [address] [place] [address] PCP - Obstetrics/Gynecology 12/23/00 02/13/12 Shane Mehta MD [address] [place] [address] PCP - Surgery 12/23/00 01/14/10 Asya Rao DPM [address] [place] [address] PCP - Podiatry 05/27/08 Douglas Pinedo MD [place] [address] PCP - Surgery Surgery 01/15/10 12/15/17 Thaddeus Irene MD [place] [address] PCP - Orthopaedics Orthopedics 02/01/10 03/14/13 Kevin Strickland MD [facility] [address] [place] [address] PCP - Ophthalmology Ophthalmology 02/02/10 Tyrese Rouse MD [facility] [place] [address] [place] [address] PCP - ENT ENT-Otolaryngology 11/27/11 Frw, None PCP - Obstetrics/Gynecology Family Practice 02/14/12 Facundo Mark MD PCP - Orthopaedics Orthopedics 03/15/13 Lali Knight MD PCP - General Family Practice 05/11/13 08/11/13 Evan Vega MD [facility] [place] [address] [place] [address] PCP - General Family Practice 08/12/13 01/08/24 Gab Wiseman MD [address] [place] [address], [place] [address] PCP - General Family Medicine 01/09/24 Louisa Montero, RD [facility] [address] [place] [address] Registered Dietitian Dietitian, Registered 12/15/23 Gab Wiseman MD [address] [place] [address], [place] [address] Assigned PCP 12/25/23 documented as of this encounter
--- OUTSIDE RECORDS SUMMARY | 2025-06-17 11:06 | XMS_ITS | Encounter Summary ---
Author Organization [facility] Address [address] [place] [address] Care Team Providers Care Machine Tracer Name Role Phone Evan Vega MD Primary Care Provider [phone] Sushil Son MD Unavailable Unavailable Ashley Aj MD Unavailable [phone] Shane Mehta MD Unavailable [phone] Asya Rao DPM Unavailable [phone] Douglas Pinedo MD Unavailable [phone] Thaddeus Irene MD Unavailable Unavailable Kevin Strickland MD Unavailable Tyrese Rouse MD Unavailable + [phone] Frw, None Unavailable Unavailable Facundo Mark MD Unavailable [phone] Lali Knight MD Primary Care Provider Unavailab Evan Huang MD Primary Care Provider [phone] Unavailable Gab Wiseman MD Unavailable Gab Wiseman MD Primary Care Provider [phone] Reason for Visit * Reason Onset Date Comments Refill Request 11/27/2005 on [place] Encounter Details Date Type Department Care Team (Late st Contact Info) Description 11/27/2005 Refill [facility] [place] [facility] [address] [place] [address] Fiordaliza Bragg Refill Request (on [place]) Social History Tobacco Use Types Packs/Day Years Used Date Smoking Tobacco: Every Day Cigarettes 1 20 Comments:info declined01/09/05 Alcohol Use Standard Drinks/Week Comments No 0 (1 standard drink = 0.6 oz pur e alcohol) Comments No Sex and Gender Information Value Date Recorded Sex Assigned at Not on file Legal Sex Female 3:26 AM SPOOLER OPERATOR Gender Identity Not on file Sexual Orientation Not on file 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 Jessica would like it called to [facility]. LER OPERATOR documented in this encounter Plan of Treatment Not on file documented as of this encounter Visit Diagnoses Not on filedocumented in this encounter Additional Health Concerns Infection Onset Date Last Indicated Resolved Time Rule Out COVID-19 11/03/2023 11/03/2023 11/03/2023 9:04 PM SPOOLER OPERATOR documented as of this encounter Care Teams Machine Tracer Relationship Specialty Start Date End Date Evan Vega MD [facility] [address] [place] [address] PCP - General 12/23/00 05/10/13 Sushil Son MD [facility] [address] [address] PCP - Orthopaedics 12/23/00 01/31/10 Ashley Aj MD [facility] [address] [place] [address] PCP - Obstetrics/Gynecology 12/23/00 02/13/12 Shnae Mehta MD [address] [place] [address] PCP - Surgery 12/23/00 01/14/10 Asya Rao DPM [address] [place] [address] PCP - Podiatry 05/27/08 Douglas Pinedo MD [place] [address] PCP - Surgery Surgery 01/15/10 12/15/17 Thaddeus Irene MD [place] [address] PCP - Orthopaedics Orthopedics 02/01/10 03/14/13 Kevin Strickland MD [facility] [address] [place] [address] PCP - Ophthalmology Ophthalmology 02/02/10 Tyrese Rouse MD [facility] [place] [address] [place] [address] PCP - ENT ENT-Otolaryngology 11/27/11 Frw, None PCP - Obstetrics/Gynecology Family Practice 02/14/12 Facundo Mark MD PCP - Orthopaedics Orthopedics 03/15/13 Lali Knight MD PCP - General Family Practice 05/11/13 08/11/13 Evan Vega MD [facility] [address] [facility] [address] [facility] [address] [place] [address] PCP - General Family Practice 08/12/13 01/08/24 Gab Wiseman MD [address] [place] [address] PCP - General Family Medicine 01/09/24 Louisa Montero, [facility] [address] [place] [address] Registered Dietitian Dietitian, Registered 12/15/23 Gab Wiseman MD [address] [place] [address] Assigned PCP 12/25/23 documented as of this encounter
--- OUTSIDE RECORDS SUMMARY | 2025-06-17 11:06 | XMS_ITS | Encounter Summary ---
Author Organization [facility] Address [address] 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 Name Role Phone Evan Vega MD Primary Care Provider [phone] Asya Rao DPM Unavailable [phone] Douglas Pinedo MD Unavailable [phone] Thaddeus Irene MD Unavailable Unavailable Kevin Strickland MD Unavailable Tyrese Rouse MD Unavailable [phone] Frw, None Unavailable Unavailable Facundo Mark MD Unavailable [phone] Lali Knight MD Primary Care Provider Unavailab Evan Huang MD Primary Care Provider [phone] Unavailable Gab Wiseman MD Unavailable Gab Wiseman MD Primary Care Provider [phone] Reason for Visit * Reason Onset Date Comments Refill Request 11/19/2012 Bactrim ds, Wendy brex 200mg Encounter Details Date Type Department Care Team (Late st Contact Info) Description 11/19/2012 Refill [facility] [address] [place] [id number] Evan Vega MD [place] [address] [facility] [address] [place] [address] Refill Request (Bactrim ds, Celebrex 200mg) Social History Tobacco Use Types Packs/Day Years Used Date Smoking Tobacco: Every Day Cigarettes 1.5 20 Smokeless Tobacco: Never Comments:Quit Smoke program declined 05/21/12 Alcohol Use Standard Drinks/Week Comments No 0 (1 standard drink = 0.6 oz pur e alcohol) Comments No Sex and Gender Information Value Date Recorded Sex Assigned at Not on file Legal Sex Female 3:26 AM 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 E GAMES SHIFT MANAGER * Telephone Encounter - Emilie Brambila RN - 11/20/2012 12:54 PM CST Last visit:11/04/12 PCP BP Readings from Last 1 Encounters: 11/04/12 114/82 Unable to approve medication per the RN refill protocol due to: - Incomplete labs - alt/ast required annually CR 1.04 05/13/2012 Hypercholesterolemia Labs: AST 23 10/23/2010 ALT 22 10/23/2010 CHOL 228 05/13/2012 TRIG 193 05/13/2012 HDL 46 05/13/2012 LDL 143 05/13/2012 E GAMES SHIFT MANAGER * Telephone Encounter - Napoleon Jade - 11/19/2012 12:41 PM CST Refill request Bactrim DS 800-160mg # 20 l/f 11/17/2012, Celebrex 200mg # 180 l/f 10/09/2012 E GAMES SHIFT MANAGER documented in this encounter Plan of Treatment Not on file documented as of this encounter Visit Diagnoses Diagnosis Lumbago- Primary Sinusitis Unspecified sinusitis (chronic) documented in this encounter Additional Health Concerns Infection Onset Date Last Indicated Resolved Time Rule Out COVID-19 11/03/2023 11/03/2023 11/03/2023 9:04 PM TABLE GAMES SHIFT MANAGER documented as of this encounter Care Teams Film Drying Machine Operator Relationship Specialty Start Date End Date Evan Vega MD [facility] [address] [place] [address] PCP - General 12/23/00 05/10/13 Asya Rao DPM [place] [address] [address] [place] [address] PCP - Podiatry 05/27/08 Douglas Pinedo MD XXX [place] [address] PCP - Surgery Surgery 01/15/10 12/15/17 Thaddeus Irene MD [address] [place] [address] PCP - Orthopaedics Orthopedics 02/01/10 03/14/13 Kevin Strickland MD [place] [address] [place] [address] PCP - Ophthalmology Ophthalmology 02/02/10 Tyrese Rouse MD [facility] [address] [place] [phone] PCP - ENT ENT-Otolaryngology 11/27/11 Frw, None PCP - Obstetrics/Gynecology Family Practice 02/14/12 Facundo Mark MD PCP - Orthopaedics Orthopedics 03/15/13 Lali Knight MD PCP - General Family Practice 05/11/13 08/11/13 Evan Vega MD [facility] [address] [facility] [address] [address] [place] [address] PCP - General Family Practice 08/12/13 01/08/24 Gab Wiseman MD [address] [place] [address] PCP - General Family Medicine 01/09/24 Louisa Montero, [facility] [address] [place] [address] Registered Dietitian Dietitian, Registered 12/15/23 Gab Wiseman MD [address] [place] [address] Assigned PCP 12/25/23 documented as of this encounter
--- OUTSIDE RECORDS SUMMARY | 2025-06-17 11:07 | XMS_ITS | Data Portability ---
Author Organization [facility] - Tevin [facility] OFF[facility] Address [address] [place] [address] [place] [address] Assessment No assessment recorded. Plan of Treatment Reminders Order Date Submit Date Provider Last Modified By Organization Details Last Modified Time Details Appointments Any 30 2024 11:30A JOYCELYN Sanches Not available Not available Not available Lab None recorded. Referral None recorded. Procedures None recorded. Surgeries None recorded. Imaging None recorded. Medication Orders hydroxyzi ne HCl 25 mg tablet [address], [address], 02/07/2025 15:49:11 buprenorp isidra 8 mg-naloxo ne 2 mg sublingua l tablet [address], [address], 02/14/2025 15:12:28 hydroxyzi ne HCl 25 mg tablet [address], [address], 11/01/2024 13:26:08 buprenorp isidra 8 mg-naloxo ne 2 mg sublingua l tablet [address], [address], 11/01/2024 13:22:37 buprenorp isidra 8 mg-naloxo ne 2 mg sublingua l tablet 2023 024 DK [facility], [address] [place], [address], 09/06/2024 13:12:58 buprenorp isidra 8 mg-naloxo ne 2 mg sublingua l tablet 2023 024 helen [facility], [address] [place], [address], 08/09/2024 12:11:38 Patient TargetsNo targets recorded. Patient InstructionsNo instructions recorded. Reason for Referral None Reported. Problems Name Problem SNOMED Code Status Onset Date Resolution Date Notes Provider Name and Address Organization Details Recorded Time Chronic obstructive pulmonary disease 04174904 Active 2023 JOYCELYN Johnson [address] [place], [address], [facility] [employer] 4 13:27:20 Hyperlipidemia 29257763 Active 2023 JOYCELYN Johnson [address] [place], [address], [facility] [employer] 4 13:27:36 Chronic pain 21164224 Active 2023 JOYCELYN Johnson [address] [place], [address], [facility] [employer] 4 13:27:45 Opioid dependence 89355566 Active 2023 JOYCELYN Johnson [address] [place], [address], [facility] [employer] 4 13:28:09 Problem Notes None recorded. Medical Equipment None Reported. Allergies Allergen ID Allergen Name Allergen Category Reaction Reaction Severity Criticality Documentation Date Start Date Code Code System Note Provider Name and Address Organization Details Recorded Time 3224 cephalexi n medicatio n anaphylax is Not available [facility] 07/28/2024 2231 RxNorm Annmarie Hightower, ZACH [address] [place], [address], [facility] 4 10:11:13 3225 naproxen medicatio n anaphylax is Not available Not available 07/28/2024 7258 RxNorm Annmarie Hightower, ZACH [address] [place], [address], [facility] 4 10:11:26 3226 Substance with sulfonami de structure and antibacte rial mechanism of action (substanc e) medicatio n itching Not available Not available 07/28/2024 68149 8003 SNOMED Annmarie Hightower, ZACH [address] [place], [address], [facility] 4 10:11:46 Medications Name Sig Start Date Stop Date Status Note LastModified by Organization Details LastModified Time fluoxetine 40 mg capsule TAKE 1 CAPSULE BY MOUTH ONCE DAILY .TAKE WITH 20MG FOR 60MG TOTAL DAILY DOSE active Not Available Not Available No t Available atorvastati n 40 mg tablet TAKE 1 TABLET BY MOUTH ONCE DAILY active Not Available Not Available No t Available nystatin 100,000 unit/mL oral suspension TAKE 5 ML BY MOUTH 4 TIMES DAILY active Not Available Not Available No t Available doxycycline hyclate 100 mg capsule TAKE 1 CAPSULE BY MOUTH TWICE DAILY FOR 10 DAYS 07/28 completed Not Available Not Available Not Available ipratropium 0.5 mg-albutero l 3 mg (2.5 mg base)/3 mL nebulizatio n soln USE 1 AMPULE IN NEBULIZER 4 TIMES DAILY active Not Available Not Available No t Available meloxicam 15 mg tablet 11/01 completed Not Available Not Available Not Available propranolol ER 60 mg capsule,24 hr,extended release TAKE 1 CAPSULE BY MOUTH ONCE DAILY 11/01 completed Not Available Not Available Not Available hydromorpho ne 2 mg tablet 07/28 completed Not Available Not Available Not Available potassium chloride ER 20 mEq tablet,exte nded release(par t/cryst) TAKE 1 TABLET BY MOUTH ONCE DAILY YOU TAKE A LASIX PILL. active Not Available Not Available No t Available trazodone 100 mg tablet TAKE 2 TABLETS BY MOUTH AT BEDTIME active Not Available Not Available No t Available calcitonin (salmon) 200 unit/actuat ion nasal spray active Not Available Not Available Not Available buspirone 10 mg tablet TAKE 1 TABLET BY MOUTH THREE TIMES DAILY active Not Available Not Available No t Available omeprazole 20 mg capsule,del ayed release TAKE 1 CAPSULE BY MOUTH AT BEDTIME active Not Available Not Available No t Available hydroxyzine HCl 25 mg tablet TAKE 1-2 TABLETS BY MOUTH 3 TIMES A DAY NEEDED active Not Available Not Available No t Available lisinopril 5 mg tablet TAKE 1 TABLET BY MOUTH ONCE DAILY active Not Available Not Available No t Available furosemide 20 mg tablet TAKE 2 TABLETS BY MOUTH ONCE DAILY BASED ON EDEMA active Not Available Not Available No t Available nystatin 100,000 unit/gram topical powder APPLY POWDER TOPICALLY THREE TIMES DAILY NEEDED INFLAMED SKIN active Not Available Not Available No t Available fluticasone 100 mcg-salmete rol 50 mcg/dose blistr powdr for inhalation INHALE 1 PUFF TWICE DAILY .RINSE MOUTH WITH WATER AFTER USE TO REDUCE AFTERTAST E AND INCIDENCE OF CANDIDIAS IS. DO NOT SWALLOW active Not Available Not Available No t Available methylpredn isolone 4 mg tablets in a dose pack TAKE BY MOUTH DIRECTED ON INSIDE OF PACKAGE 07/28 completed Not Available Not Available Not Available albuterol sulfate HFA 90 mcg/actuati on aerosol inhaler INHALE 2 PUFFS BY NEBULIZER EVERY 4 HOURS NEEDED FOR WHEEZING active Not Available Not Available No t Available fluoxetine 20 mg capsule TAKE 1 CAPSULE BY MOUTH ONCE DAILY active Not Available Not Available No t Available buprenorphi ne 8 mg-naloxone [address] 1 TABLET 3 TIMES A DAY BY SUBLINGUA L ROUTE FOR 30 DAYS, FOR OUD. active Not Available Not Available No t Available cyclobenzap rine 5 mg tablet 11/01 completed Not Available Not Available Not Available Lasix 11/01 completed Not Available Not Available Not Available potassium as needed 11/01 completed Not Available Not Available Not Available Symbicort 160 mcg-4.5 mcg/actuati on HFA aerosol inhaler INHALE 2 PUFFS BY MOUTH TWICE DAILY - RINS MOUTH WITH WATER AFTER USE TO REDUCE AFTERTAST E AND INCIDENCE OF CANDIDIAS IS - DO NOT SWALLOW active Not Available Not Available No t Available oxycodone 10 mg tablet TAKE 1 TABLET BY MOUTH EVERY 4 HOURS NEEDED FOR PAIN OR SCORE 7-10/10 FOR UP TO 3 DAYS 07/28 completed Not Available Not Available Not Available aspirin 81 mg capsule Take 1 capsule every day by oral route. active Not Available Not Available No t Available albuterol 90 mcg-budeson linda 80 mcg/actuati on HFA aerosol inhaler Inhale by inhalatio n route. 11/01 completed Not Available Not Available Not Available Vitals Date Recorded Body height Body mass index (BMI) Body weight Oxygen saturation Oxygen saturation in Arterial blood by Pulse oximetry Heart rate Systolic And Diastolic Provider Name and Address Organization Details Last Updated DateTime 5 154.94 cm 26.6 kg/m2 35637.5 2 g 95 % 95 % 79 /min 122/65 mm[Hg] JOYCELYN Johnson [address] [place], [address], [facility] [employer] 5 14:28:20 Date Recorded Body height Oxygen saturation Oxygen saturation in Arterial blood by Pulse oximetry Heart rate Systolic And Diastolic Provider Name and Address Organization Details Last Updated DateTime 4 154.94 cm 96 % 96 % 59 /min 135/72 mm[Hg] JOYCELYN Johnson [address] [place], [address], [facility] [employer] 4 11:04:16 Date Recorded Oxygen saturation Oxygen saturation in Arterial blood by Pulse oximetry Body height Provider Name and Address Organization Details Last Updated DateTime 09/06/2024 98 % 98 % 154.94 cm JOYCELYN Johnson [address] [place] [address], [address], [facility] [employer] 09/06/2024 12:41:18 Date Recorded Body weight Oxygen saturation Oxygen saturation in Arterial blood by Pulse oximetry Heart rate Systolic And Diastolic Provider Name and Address Organization Details Last Updated DateTime 4 57564.0 6 g 96 % 96 % 78 /min 136/73 mm[Hg] JOYCELYN Johnson [address] [place], [address], [facility] [employer] 4 12:10:48 Social History None recorded. Functional Status None recorded. Mental Status None recorded. Family History Nothing Reported. Medical History No medical history recorded. Gynecological HistoryNo gynecological history recorded. Obstetrics History GPAL:G 0 P 0 0 0 0 Immunizations Vaccine Type Date Status Note Provider Nam e and Address Organization Details Recorded Time COVID-19, mRNA, LNP-S, PF, 100 mcg/0.5mL dose or 50 mcg/0.25mL dose 1 completed Annmarie Hightower, ZACH [address] [place], [address], [facility] 07/28/2024 10:17:00 COVID-19, mRNA, LNP-S, PF, 100 mcg/0.5mL dose or 50 mcg/0.25mL dose 2 completed Annmarie Hightower, ZACH [address] [place] [address], [address], [facility] 07/28/2024 10:17:00 COVID-19, mRNA, LNP-S, PF, 100 mcg/0.5mL dose or 50 mcg/0.25mL dose 1 completed Annmarie Hightower, ZACH [address] [place], [address], [facility] 07/28/2024 10:17:00 COVID-19, mRNA, LNP-S, PF, 100 mcg/0.5mL dose or 50 mcg/0.25mL dose 1 completed Annmarie Hightower, ZACH [address] [place], [address], [facility] 07/28/2024 10:17:00 Pneumococcal conjugate PCV20, polysaccharide QOF195 conjugate, adjuvant, PF 3 completed Annmarie Hightower, ZACH [address] [place], [address], [facility] 07/28/2024 10:17:00 COVID-19, mRNA, LNP-S, bivalent, PF, 30 mcg/0.3 mL dose 3 completed Annmarie Hightower, ZACH [address] [place] [address], [address], [facility] 07/28/2024 10:17:00 COVID-19, mRNA, LNP-S, PF, 50 mcg/0.5 mL 3 completed Annmarie Hightower, OPERATING ROOM SURGICAL TECHNOLOGIST [address] [facility] [place], [address], [facility] 07/28/2024 10:17:00 pneumococcal polysaccharide PPV23 7 completed Annmarie Hightower, OPERATING ROOM SURGICAL TECHNOLOGIST [address] [facility] [place], [address], [facility] 07/28/2024 10:17:00 influenza, unspecified formulation 4 completed Annmarie Hightower, OPERATING ROOM SURGICAL TECHNOLOGIST [address] [facility] [place], [address], [facility] 07/28/2024 10:17:00 Tdap 6 completed Annmarie Hightower, OPERATING ROOM SURGICAL TECHNOLOGIST [address] [facility] [place], [address], [facility] 07/28/2024 10:17:00 Tdap 8 completed Annmarie Hightower, OPERATING ROOM SURGICAL TECHNOLOGIST [address] [place], [address], [facility] 07/28/2024 10:17:00 Novel [id number], all formulations 9 completed Annmarie Hightower, OPERATING ROOM SURGICAL TECHNOLOGIST [address] [place], [address], [facility] 07/28/2024 10:17:00 Influenza, split virus, trivalent, preservative 1 completed Annmarie Hightower, OPERATING ROOM SURGICAL TECHNOLOGIST [address] [place], [address], [facility] 07/28/2024 10:17:00 Influenza, split virus, trivalent, preservative 4 completed Annmarie Hightower, OPERATING ROOM SURGICAL TECHNOLOGIST [address] [place], [address], [facility] 07/28/2024 10:17:00 Influenza, split virus, trivalent, preservative 8 completed Annmarie Hightower, OPERATING ROOM SURGICAL TECHNOLOGIST [address] [place], [address], [facility] 07/28/2024 10:17:00 Influenza, split virus, trivalent, preservative 3 completed Annmarie Hightower, OPERATING ROOM SURGICAL TECHNOLOGIST [address] [place], [address], [facility] 07/28/2024 10:17:00 Influenza, split virus, trivalent, preservative 5 completed Annmarie Hightower, OPERATING ROOM SURGICAL TECHNOLOGIST [address] [place], [address], [facility] 07/28/2024 10:17:00 Influenza, split virus, trivalent, PF 2 completed Annmarie Hightower, OPERATING ROOM SURGICAL TECHNOLOGIST [address] [place], [address], [facility] 07/28/2024 10:17:00 Influenza, split virus, trivalent, PF 3 completed Annmarie Hightower, OPERATING ROOM SURGICAL TECHNOLOGIST [address] [place], [address], [facility] 07/28/2024 10:17:00 Influenza, split virus, trivalent, PF 0 completed Annmarie Hightower, OPERATING ROOM SURGICAL TECHNOLOGIST [address] [place], [address], [facility] 07/28/2024 10:17:00 Influenza, split virus, trivalent, PF 6 completed Annmarie Hightower, OPERATING ROOM SURGICAL TECHNOLOGIST [address] [place], [address], [facility] 07/28/2024 10:17:00 Influenza, split virus, trivalent, PF 9 completed Annmarie Hightower, OPERATING ROOM SURGICAL TECHNOLOGIST [address] [place], [address], [facility] 07/28/2024 10:17:00 Td (adult), 2 Lf tetanus toxoid, preservative free, adsorbed 5 completed Annmarie Hightower, OPERATING ROOM SURGICAL TECHNOLOGIST [address] [facility] [place], [address], [facility] 07/28/2024 10:17:00 Influenza, split virus, quadrivalent, PF 3 completed Annmarie Hightower, OPERATING ROOM SURGICAL TECHNOLOGIST [address] [facility] [place], [address], [facility] 07/28/2024 10:17:00 Influenza, split virus, quadrivalent, PF 1 completed Annmarie Hightower, OPERATING ROOM SURGICAL TECHNOLOGIST [address] [facility] [place], [address], [facility] 07/28/2024 10:17:00 Influenza, split virus, quadrivalent, PF 7 completed Annmarie Hightower, OPERATING ROOM SURGICAL TECHNOLOGIST [address] [facility] [place], [address], [facility] 07/28/2024 10:17:00 Influenza, split virus, quadrivalent, PF 1 completed Annmarie Hightower, OPERATING ROOM SURGICAL TECHNOLOGIST [address] [facility] [place], [address], [facility] 07/28/2024 10:17:01 Influenza, split virus, quadrivalent, PF 3 completed Annmarie Hightower, OPERATING ROOM SURGICAL TECHNOLOGIST [address] [place], [address], [facility] 07/28/2024 10:17:01 Past Encounters Encounter ID Performer Location Encounter Start Date Encounter Closed Date Diagnosis/Indication Diagnosis SNOMED-CT Code Diagnosis ICD10 Code Diagnosis Note [id number] JOYCELYN Johnson [facility] [address] [place] [address] 05/31/2024 12:00:06 05/31/2024 14:04:32 Opioid dependence, on agonist therapy 8264730774 105 F11.20 Has been using 16mg/day for two months and feels has good responseWi ll continue at same dose for nowReviewe d patient responsibi lities and agreement document; pt signedRx to Melissa; may need to change depending on cost/ availabili ty. Checked with [place] [facility] and the #60 of the 8mg tab costs :$115Urine drug screen positive for buprenorph ine brittniCheck LFTs; CMP orderedDec lined lock box, has one alreadyHas regular primary care [facility]; seeing regularlyI nterested in MH counseling ; will send referral todayDiscu ssed how to manage constipati on-- increased water intake, increased fiber, stool softener. WIll let me know if needs any more support at next visitGoal: Stay sober (off the pain pills) legallyF/U with me scheduled in 2 weeks, then again in 3 weeks [id number] JOYCELYN JohnsonDONNA Gunn OFFICE [address] [place] [address] 06/14/2024 12:46:11 06/14/2024 13:56:46 Opioid dependence, on agonist therapy 9652022046 105 F11.20 Looked up good Rx and found 28 days supply of med at [facility] is approx 47$Will go ahead and send that rx to pharmacyF/ u with me in 3 weeks (July 05)Hasn't gone to get her labs yetMH referral pendingGoa l: Stay sober (off the pain pills) legally [id number] Annmarie Hightower NP [facility] [address] [place] [address] 07/28/2024 14:48:26 07/28/2024 16:36:45 Opioid dependence 30447821 F11.20 On Suboxone. Next visit with REY scheduled for 08/09/24. Chronic pain 17826036 G8 9.29 With current exacerbati on r/t recent compressio n fractures. Seen by PCP yesterday who referred patient to Pain Medicine - Spine consult (clinic) in [place]. I provided the phone # and encouraged patient to call [facility] to obtain care. I also offered that she may try taking 1/2 of her Suboxone tablet every 6 hours instead of 1 tablet q12 as this dosing can offer more analgesic effects. She can do this for 5-7 days and then should return to BID dosing. If it is ineffectiv e, she should not continue with QID dosing. [id number] JOYCELYN Johnson OFFICE [address] [place] [address] 08/09/2024 10:53:27 08/09/2024 11:50:02 Opioid dependence, on agonist therapy 8188657907 105 F11.20 She is in a difficult situation with the pain and risk of use of opioids for pain management . We discussed increasing her suboxone to t.i.d dosing for the short term until she gets her pain under control and then bringing her back to bid dosing.She Will f/u with me in 4 weeks. Pt needs to contact [facility] to get pain clinic consult scheduled. Pt verbalized understand ing and agreed c plan [id number] JOYCELYN JohnsonDONNA Gunn OFFICE [address] [facility] [place] [address] 09/06/2024 12:29:43 09/06/2024 14:00:23 Opioid dependence, on agonist therapy 6311958025 105 F11.20 She is in a difficult situation with the pain and risk of use of opioids for pain management .Will continue with t..i.d dosing for now and continue to check in about it with the goal to decrease eventually .Refill of medication provided todayShe Will f/u with me [id number]. Pt verbalized understand ing and agreed c plan [id number] JOYCELYN Johnson OFFICE [address] [place] [address] 11/01/2024 11:56:59 11/01/2024 12:59:56 Opioid dependence, on agonist therapy 5951051065 105 F11.20 Stable with no relapse on current dose of 8mg t.i.dWould like to see Jessica drop back down to twice daily dosing at some point but with the upcoming stress of hte holidays do not see this as the right time to attempt thatF/U visit scheduled for 01/10/2025 . Advised contacting me with any concerns as need prior to that timeGoals: Would like to get reconnecte d with her family. Hopes this upcoming holiday visit will provide thatPMP: reviewed. No concerns Pt verbalized understand ing and agreed c plan Anxiety 66534518 F41.9 WIll refill pt's hydroxyzyi ne today so she can continue using itHopeful that anxiety will decrease after the holidays [id number] JOYCELYN Johnson OFFICE [address] [facility] [place] [address] 02/07/2025 13:59:08 02/07/2025 14:38:57 Opioid dependence, on agonist therapy 6192793392 105 F11.20 Stable with no relapse on current dose of 8mg t.i.Yuridia have discussed tapering her dose down. She would like to wait a little on that. Will discussed at next visit in 2 monthsF/U should be scheduled for 04/11 at 2PM once schedule has been opened. Goals: Would like to get reconnecte d with an NA groupPMP: reviewed. No concerns Pt verbalized understand ing and agreed c plan Anxiety 41458356 F41.9 WIll refill pt's hydroxyzyi ne today so she can continue using it prnDenies that it causes sedation Health Concerns Section Related Observation LastModified by Organization Detai ls LastModified Time None Recorded Concern Status LastModified by Organization Details LastModified Time None Recorded Advance Directives Directive None Recorded Payers Insurance Date Sequence Insurance Name Policy Number Policy Keyes Covered Member ID Keyes Member ID Guarantor Name 05/31/2024 SLIDING FEE SCHEDULE - DISCOUNT Jessica Hung Notes Date Note Type Note Provider Name and Address Organization Details Recorded Time 07/28/2024 text/html Jessica Hung is a 59 year old patient who established care with my colleague Gagan Rivas last month to start buprenorphine for OUD. Since then, patient has been hospitalized for pain management r/t spine compression fractures. She has had close follow up with her PCP at [place]: Delilah Sotomayor. 07/27/24 PCP visit notes reviewed in Care Everywhere: patient referred to pain clinic; no more opioid analgesics given. Currently prescribed: Gabapentin, Flexeril, Lidoderm patch, Tylenol, ibuprofen for pain management. DENTAL TECHNICIAN shows prescription for hydromorphone 07/17 for #5 days. Not taking Gabapentin anymore; worried that it caused her fall. Patient called clinic yesterday looking for assistance with pain management. ERY is out of office so I agreed to speak with patient to provide guidance. Patient reports running into huge stumbling block with pain control r/t Suboxone prescription. Annmarie Hightower, ZACH [address] [place], [address], [facility] 07/28/2024 15:18:01 08/09/2024 text/html [facility] visit with Rain Hightower on 07/28 b/c of increased pain secondary to a spine fracture which occurred as a result of a fall in early July. .Was hospitalized 2/2 this and for pain management. Was given a couple of short term opioid rx's to manage pain but last one was on July 16 x 5 days Says her provider gave her an rx for dilaudid but pharmacy would not fill it since she is taking suboxone. Pt believes she fell due to SE of the gabapentin which she had recently restarted prior to that. Says she got up and felt weak and fell backward unexpectedly. Unfortunately after she got up, she fell again. Says she crushed L1,L2. She has subsequently stopped taking gabapentin Has been referred to pain specialist but has not heard from them. Admits she has not called. Currently prescribed: Flexeril, Lidoderm patch, Tylenol, ibuprofen for pain management. FEels tylenol and ibuprofen really wreck her stomach. Has an rx for meloxicam but hasn't taken it. Rates pain 06/09 Does admit to increasing her suboxone dosing to t.i.d to get back. We had along conversation about the fact that we do not prescribed suboxone for pain management, only for opioid use disorder and she was doing pretty well on b.i.d dosing for that. Her COPD is well controlled currently. Best O2 reading she has had with me. HISTORYOpioid use Hx: Pt has hx of chronic pain and addiction to pain pills. Drug of choice was oxycodone/percocet. Long hx of use following difficult joint surgeries (knee, back, shoulder) surgeries. Was initially getting prescriptions from medical providers and eventually from street.Triggers: PainCurrent sxs: No withdrawal sxs presently Current Cravings: None given consistent use of suboxoneBehavior health: None at this time; interested in counseling referral which was sent at previous visitSH:- Living situation: living alone in apartment here in [place]. Has a dog.- Supports: Friends/family- Work: not employed- Legal: None DENTAL TECHNICIAN reviewed and discussed c pt. JOYCELYN Johnson [address] [place], [address], [place] [facility] 08/09/2024 12:36:37 09/06/2024 text/html Patient presents for f/u from UDSeen 4 weeks agoAt that time we increased her suboxone to t.i.d dosing (Please see that OV note for more history). This was meant to be temporary and adjusted based on her pain management appt with [facility], which she had. they are advising several appointments and injections, though she doesn't have the details. She is discouraged b/c says has tried injections in past but limited success. Also feels like they don't last long. The logistics of getting back and forth to [place] is daunting, as is the cost . Her COPD is well controlled currently. HISTORYOpioid use Hx: Pt has hx of chronic pain and addiction to pain pills. Drug of choice was oxycodone/percocet. Long hx of use following difficult joint surgeries (knee, back, shoulder) surgeries. Was initially getting prescriptions from medical providers and eventually from [facility].Triggers: PainCurrent sxs: No withdrawal sxs presently Current Cravings: None given consistent use of suboxoneBehavior health: None at this time; interested in counseling referral which was sent at previous visit but no visit as yet.SH:- Living situation: living alone in apartment here in [place]. Has a dog.- Supports: Friends/family- Work: not employed- Legal: None DENTAL TECHNICIAN reviewed: appropriate JOYCELYN Johnson [address] [place], [address], [facility] 09/06/2024 13:22:48 11/01/2024 text/html Patient presents for f/u from MOUD6 weeks ago in AugustCurrently on suboxone 8mg t..i.dWas seen in [facility] for pain management (see previous OV note for more).Has had no subsequent follow up. Is quite dissatisfied with her treatment there. She is managing the back pain. Taking 2400mg of ibuprofen daily with occasional doses of acetaminophen as well. Is ambulating without the use of any assistive devices and doing ok. IS having an uptick in her anxiety 2/2 upcoming holidays. Is planning to spend a meal with her kids/grandkids for the first time in 10 years and is worried about what to expectTaking hydroxyzine 25 mg t.i.d. Feels it is not enough. Her PCP at [facility] won't refill until she returns for a visit. Wondering if we can refill today. Her COPD is well controlled currently. HISTORYOpioid use Hx: Pt has hx of chronic pain and addiction to pain pills. Drug of choice was oxycodone/percocet. Long hx of use following difficult joint surgeries (knee, back, shoulder) surgeries. Was initially getting prescriptions from medical providers and eventually from street.Triggers: PainCurrent sxs: No withdrawal sxs presently Current Cravings: None given consistent use of suboxoneBehavior health: None at this time; interested in counseling referral which was sent at previous visit but has not heard anything as yetSH:- Living situation: living alone in apartment here in [place]. Has a dog is a source of a lot of support/gonzalez.- Supports: Friends/family , particularly sister- Work: not employed- Legal: None DENTAL TECHNICIAN reviewed: appropriate JOYCELYN Johnson [address] [place], [address], [facility] - [facility] 11/01/2024 12:59:34 02/07/2025 text/html Patient presents for f/u from [facility] visit was in October4Currently on suboxone 8mg t..i.dWas seen in [place] for pain management (see previous OV note for more).Has had no subsequent follow up. Is quite dissatisfied with her treatment there. She is managing the back pain. Taking 2400mg of ibuprofen daily with occasional doses of acetaminophen as well. Is ambulating without the use of any assistive devices and doing ok. Does report pretty severe foot pain - reports feeling like someone is ripping out my toenails. This occurs intermittently but the pain is severe. Has appt with her PCP tomorrow Is feeling very lost and alone. Her dog whom she's had for the last 15 year had to be put down last month and she is mourning that loss. Her Gracie holiday celebration, which she was anxiously anticipating, did go pretty well. one of her daughters', however, is causing a lot of problems for her currently and that is hard. Her COPD is well controlled currently. Would like refill of hydroxyzine which she uses 1-2 times/day (50mg). Feels lately like she is scared of everything and that is a very uncomfortable place to be. HISTORYOpioid use Hx: Pt has hx of chronic pain and addiction to pain pills. Drug of choice was oxycodone/percocet. Long hx of use following difficult joint surgeries (knee, back, shoulder) surgeries. Was initially getting prescriptions from medical providers and eventually from street.Triggers: PainCurrent sxs: No withdrawal sxs presently Current Cravings: None given consistent use of suboxone. No relapse. Denies ETOH use.Behavior health: None at this time; has been interested in MH counseling . A referral was sent months ago but she never heard anything form [facility] about this. She now has health insurance so I encouraged her to ask her PCP for a referral when she sees them tomorrow.SH:- Living situation: living alone in apartment here in [place].- Supports: Friends/family , particularly sister. Feels very lonely right now and that is hard. Is looking for an NA or AA group to attend. Wanting to establish some connection- Work: not employed- Legal: None DENTAL TECHNICIAN reviewed: appropriate. Will be due for med refill next week JOYCELYN Johnson [address] [place], [address], [place] - [facility] 02/07/2025 14:46:09 OBGyn Episode No OBEpisode recorded.
--- OUTSIDE RECORDS SUMMARY | 2025-06-17 11:07 | XMS_ITS | Clinical Summary ---
Author Organization [place] Address [address] [facility] [place] [address] Care Team Providers Care Hat Block Maker Name Role Phone Asya Rao DPM Unavailable [phone] Kevin Strickland MD Unavailable Tyrese Rouse MD Unavailable [phone] Frw, None Unavailable Unavailable Facundo Mark MD Unavailable [phone] Unavailable Gab Wiseman MD Unavailable Gab Wiseman MD Primary Care Provider [phone] Allergies Active Allergy Reactions Criticality Noted Date Comments Fentanyl 03/22/2003 skin sores w duragesic Morphine And Codeine Itching 03/06/2010 Nsaids 05/06/2001 Alleve sob, hives Penicillins 05/06/2001 sob, hives Sulfa Antibiotics Itching 07/21/2001 Itching Medications * This document contains information received from the source organization and may not represent a complete record from that organization. acyclovir (ZOVIRAX) 400 MG tabletIndications: Herpes simplex without mention of complication Take 1 tablet (400 mg) by mouth 2 times daily 180 tablet 3 10/21/20 13 Active Additional Information Patient not taking.Reported on 12/15/2023 albuterol (PROAIR HFA, PROVENTIL HFA, VENTOLIN HFA) 108 (90 BASE) MCG/ACT inhalerIndications :Bronchitis with bronchospasm Inhale 2 puffs into the lungs every 4 hours as needed for shortness of breath / dyspnea 1 Inhaler 11 10/21/20 13 Active atorvastatin (LIPITOR) 40 MG tabletIndications: Mixed hyperlipidemia Take 1 tablet (40 mg) by mouth daily 90 tablet 12/15/19 24 Active busPIRone (BUSPAR) 10 MG tabletIndications: Anxiety Take 1 tablet (10 mg) by mouth 3 times daily 270 tablet 12/15/19 24 Active FLUoxetine (PROZAC) 20 MG capsuleIndications :Anxiety Take 1 capsule (20 mg) by mouth daily 90 capsule 12/15/19 24 Active FLUoxetine (PROZAC) 40 MG capsuleIndications :Anxiety Take 1 capsule (40 mg) by mouth daily 90 capsule 12/15/19 24 Active furosemide (LASIX) 20 MG tabletIndications: Leg swelling,LAZO (dyspnea on exertion) 1 pill daily as needed for leg swelling 90 tablet 12/15/19 24 Active Additional Information Patient not taking.Reported on 01/26/2024 ipratropium - albuterol 0.5 mg/2.5 mg/3 mL (DUONEB) 0.5-2.5 (3) MG/3ML neb solutionIndication s:COPD with acute exacerbation (H) Take 1 vial (3 mLs) by nebulization 4 times daily 90 mL 12/15/19 24 Active nystatin (MYCOSTATIN) 140076 UNIT/GM external powderIndications: Skin yeast infection Apply topically 3 times daily as needed (inflammed skin) 60 g 12/15/19 24 Active potassium chloride ER (KLOR-CON) 20 MEQ CR tabletIndications: Leg swelling,LAZO (dyspnea on exertion) 1 pill daily each day you take a Lasix pill 60 tablet 12/15/19 24 Active Additional Information Patient not taking.Reported on 01/26/2024 propranolol ER (INDERAL LA) 80 MG 24 hr capsuleIndications :Tremor Take 1 capsule (80 mg) by mouth daily 90 capsule 12/15/19 24 Active traZODone (DESYREL) 100 MG tabletIndications: Insomnia, unspecified type Take 1-1.5 tablets (100-150 mg) by mouth nightly as needed for sleep 135 tablet 12/15/19 24 Active Fluticasone-Umecli din-Vilant (TRELEGY ELLIPTA) 100-62.5-25 MCG/ACT oral inhalerIndications :COPD with acute exacerbation (H) Inhale 1 puff into the lungs daily 60 each 11 12/15/19 24 Active Additional Information Patient not taking.Reported on 01/26/2024 metFORMIN (GLUCOPHAGE XR) 500 MG 24 hr tabletIndications: Type 2 diabetes mellitus without complication, without long-term current use of insulin (H) Take 1 tablet (500 mg) by mouth daily (with dinner) 30 tablet 3 01/26/20 24 Active predniSONE (DELTASONE) 20 MG tabletIndications: COPD with acute exacerbation (H) TAKE 2 TABLETS BY MOUTH ONCE DAILY FOR 3 DAYS, THEN 1 TABLET ONCE DAILY FOR 4 DAYS 10 tablet 02/25/20 24 Active LORazepam (ATIVAN) 1 MG tabletIndications: Anxiety TAKE 1 TABLET BY MOUTH EVERY 6 HOURS NEEDED FOR ANXIETY. 7 tablet 03/31/20 24 Active budesonide-formote rol (BREYNA) 80-4.5 MCG/ACT InhalerIndications :COPD with acute exacerbation (H) Inhale 2 puffs by mouth twice daily 11 g 1 05/07/20 24 Active nystatin (MYCOSTATIN) 824914 UNIT/ML suspensionIndicati ons:Skin yeast infection TAKE 5 ML BY MOUTH 4 TIMES DAILY 60 mL 08/09/20 24 Active Active Problems Problem Noted Date Diagnosed Date Class 2 severe obesity due t o excess calories with serious comorbidity in adult 12/15/2023 Anxiety 11/03/2023 Overview (01/26/2024): Chronic meds. And occasional 1mg ativan for panic. Agreed on 01/26/24 clinic visit that 10 tabs lasting 3 months is reasonable amount for occasional use. Back in 3 mo. COPD with acute exacerbation 11/03/2023 narcotic dependence in remission NO RX for NARCS 05/11/2013 Overview (05/11/2013): Do not prescribe narcotics Chronic pain syndrome 06/01/2008 Overview (12/15/2023): She has chronic pain due to chronic low back pain (prior lumbar surgeries), chronic migraine headache and chronic knee pain. Herpes simplex virus (HSV) infection 02/29/2008 Overview (09/01/2015): Problem list name updated by automated process. Provider to review Major depressive disorder, recurrent episode Overview (08/31/2015): Problem list name updated by automated process. Provider to review Hyperlipidemia 03/22/2003 Overview (08/31/2015): Problem list name updated by automated process. Provider to review Migraine without aura Overview (08/31/2015): Chronic Pain Med Agreement Dr. Vega and Jessica Hung Max of 2 injections of demerol/vistaril in any given calendar month for migraine. Problem list name updated by automated process. Provider to review Tobacco use disorder Resolved Problems Problem Noted Date Diagnosed Date Resolved Date Mild intermittent asthma 08/14/2007 Open wound of knee, leg (exc ept thigh), and ankle, complicated 10/08/2004 05/29/2009 Refractory migraine without aura 04/28/2003 12/15/2023 Overview (08/31/2015): Problem list name updated by automated process. Provider to review Family history of diabetes mellitus 03/18/2003 12/15/2023 Intervertebral lumbar disc d isorder with myelopathy, lumbar region 02/16/2003 12/15/2023 Contact dermatitis and other eczema, due to unspecified cause 01/13/2003 05/29/2009 Dyspepsia 12/13/2002 12/15/2023 Elevated blood pressure read ing without diagnosis of hypertension 12/13/2002 12/15/2023 Sciatica 12/13/2002 05/29/2009 Lumbago 11/30/2002 05/29/2009 Immunizations Immunization Administration Dates Next Due Influenza (H1N1) 11/15/2009 Influenza (IIV3) PF 09/01/2013, 2,08/21/2011,09/04/2010,,08/24/2008,10/16/2007,09/23/2006,2004,08/24/2004,09/14/2003 Mantoux Tuberculin Skin Test 02/25/2012 TD,PF 7+ (Tenivac) 12/04/2004,12/01/1994 TDAP Vaccine (Adacel) 08/02/2008 Family History Medical History Relation Comments Cerebrovascular Disease Father Hearing loss Diabetes Father oral hypoglycemi cs Hypertension Father Lipids Father Cancer - colorectal Maternal Grandfather colon Prostate Cancer Maternal Grandfather Cerebrovascular Disease Maternal Grandmother Diabetes Maternal Grandmother C.A.D. Mother Depression Mother Eye Disorder Mother lazy eye/catarac ts Heart Disease Mother Coronary artery disease - bypass surgery, Lipids Mother Osteoporosis Mother Respiratory Mother emphysema, was a smoker Thyroid Disease Mother Diabetes Paternal Grandmother Neurologic Disorder Sister 3 of brai n aneurysm Anesthesia Reaction No family hx of Blood Disease No family hx of Breast Cancer No family hx of Cancer No family hx of Neurologic Disorder No family hx of Relation Status Comments Child Alive X 5 Father Alive Maternal Grandfather Maternal Grandmother Mother Paternal Grandmother Sister 1 of brain an eurysm Sister 2 Alive Sister 3 Son Social History Tobacco Use Types Packs/Day Years Used Date Smoking Tobacco: Every Day Cigarettes 1.5 20 Smokeless Tobacco: Never Tobacco Cessation:Ready to Q uit: Not Asked; Counseling Given: Not Answered Comments:Quit Smoke program declined 02-24-13 Alcohol Use Standard Drinks/Week Comments No 0 (1 standard drink = 0.6 oz pur e alcohol) PHQ-2 Answer Date Recorded PHQ-2 Score 2 01/26/2024 Adolescent Education Answer Date Record ed Getting School Help Needed Not on file 11/03 Food Insecurity Answer Date Recorded Within the past 12 months, d id you worry that your food would run out before you got money to buy more? No 12/15/2023 Within the past 12 months, d id the food you bought just not last and you didn t have money to get more? No 12/15/2023 Housing Stability Answer Date Recorded Do you have housing? (Housin g is defined as stable permanent housing and does not include staying outside in a car, in a tent, in an abandoned building, in an overnight mcc, or couch-surfing.) Yes 12/15/2023 Are you worried about losing your housing? No 12/15/2023 Financial Resource Strain Answer Date R ecorded Within the past 12 months, h ave you or your family members you live with been unable to get utilities (heat, electricity) when it was really needed? No 12/15/2023 Transportation Needs Answer Date Record ed Within the past 12 months, h as lack of transportation kept you from medical appointments, getting your medicines, non-medical meetings or appointments, work, or from getting things that you need? No 12/15/2023 Interpersonal Safety Answer Date Record ed Do you feel physically and e motionally safe where you currently live? Yes 01/26/2024 Within the past 12 months, h ave you been hit, slapped, kicked or otherwise physically hurt by someone? No 01/26/2024 Within the past 12 months, h ave you been humiliated or emotionally abused in other ways by your partner or ex-partner? 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 Not on file Not on file Last Filed Vital Signs Vital Sign Reading Time Taken Comments Blood Pressure 130/88 01/26/2024 2:28 PM READINESS PARAPROFESSIONAL Pulse 78 01/26/2024 2:28 PM READINESS PARAPROFESSIONAL Temperature 36.9 C (98.4 F) 01/26/2024 2:28 PM READINESS PARAPROFESSIONAL Respiratory Rate 18 01/26/2024 2:28 PM READINESS PARAPROFESSIONAL Oxygen Saturation 97% 01/26/2024 2:28 PM READINESS PARAPROFESSIONAL Inhaled Oxygen Concentration - - Weight 93.4 kg (206 lb) 01/26/2024 2:28 PM READINESS PARAPROFESSIONAL Height 154.9 cm (5' 1) 01/26/2024 2:28 PM READINESS PARAPROFESSIONAL Body Mass Index 38.92 01/26/2024 2:28 PM READINESS PARAPROFESSIONAL Plan of Treatment Health Maintenance Due Date Last Done Comments ADVANCE CARE PLANNING 1964 ANNUAL REVIEW OF HM ORDERS 1964 COPD ACTION PLAN 1964 CT COLONOGRAPHY 1964 DEPRESSION ACTION PLAN 1964 DIABETIC FOOT EXAM 1964 FIT 1964 FLEX SIG 1964 MICROALBUMIN 1964 sDNA (Cologuard) 1964 HIV SCREENING 02/05/1979 HEPATITIS C SCREENING 02/05/1982 HEPATITIS A VACCINE (1 of 2 - Risk 2-dose series) 02/05/1983 EYE EXAM 01/31/2011 01/31/2010 COLONOSCOPY 12/07/2012 12/07/2002 COLORECTAL CANCER SCREENING 12/07/2012 A1C 09/23/2013 06/23/2013 ZOSTER VACCINE (1 of 2) 02/05/2014 YEARLY PREVENTIVE VISIT 03/11/2014 03/11/20 13, 04/23/2011, 11/14/2009, Additional history exists PAP 04/23/2014 04/23/2011, 10/31, 08/02/2008, Additional history exists LIPID 05/13/2014 05/13/2013, 05/01, 10/23/2010, Additional history exists MAMMO SCREENING 04/13/2016 04/13/2014, 03/01, 03/11/2013, Additional history exists RSV VACCINE (1 - Risk 60-74 years 1-dose series) 2024 PHQ-9 06/14/2024 12/15/2023, 010 07/2014, 05/28/2013, Additional history exists COVID-19 VACCINE ( season) 2024 10/27/2023, 12/18/2022, 04/19/2022, Additional history exists BMP 11/03/2024 11/03/2023, 05/01, 12/18/2012, Additional history exists LUNG CANCER SCREENING 11/03/2024 11/03/2023, 023 INFLUENZA VACCINE (#1) 2025 , 12/18/2022, 10/22/2021, Additional history exists DTAP/TDAP/TD VACCINE (3 - Td or Tdap) 06/01/2026 06/01/2016, 08/02/2008, 12/04/2004, Additional history exists PNEUMOCOCCAL VACCINE 50+ YEARS Completed 01/17/2023, 08/22/2017 SPIROMETRY Completed 09/09/2023, 12/10/2005 HPV VACCINE Aged Out No longer eligi ble based on patient's age to complete this topic MENINGITIS VACCINE Aged Out No longer eligible based on patient's age to complete this topic Procedures Procedure Name Priority Date/Time Associated Diagnosis Comments CT CHEST PULMONARY EMBOLISM W CONTRAST STAT 11/03/2023 10:07 PM READINESS PARAPROFESSIONAL BASIC METABOLIC PANEL STAT 11/03/2023 8:35 PM READINESS PARAPROFESSIONAL HEMOGLOBIN A1C Routine 06/23/2013 7:40 AM CDT Elevated fasting blood sugar LIPID PROFILE Routine 05/13/2013 7:24 AM CDT HYPERLIPIDEMIA NEC/NOS MA SCREENING DIGITAL BILATERAL Routine 03/11/2013 1:41 PM CDT Other screening mammogram PAP IMAGED THIN LAYER SCREEN Routine 04/23/2011 9:17 AM CDT Screening for malignant neoplasm of the cervix HC SPIROMETRY, BREATH CAPACITY Routine 12/10/2005 Asthma Unspecified ZZHC COLONOSCOPY THRU STOMA, DIAGNOSTIC Routine 12/07/2002 Rectal & Anal Hemorrhage from Last 3 Months or Most Recently Relevant to Health Maintenance Results * CT Chest Pulmonary Embolism w Contrast (11/03/2023 10:07 PM READINESS PARAPROFESSIONAL) Anatomical Region Laterality Modality Chest, SUBRAD CT BODY, UMP CT CHEST Computed Tomography 11/03/2023 10:0 7 PM READINESS PARAPROFESSIONAL Impressions 11/03/2023 10:30 PM READINESS PARAPROFESSIONAL IMPRESSION: 1. There is no pulmonary embolus, aortic aneurysm or dissection. No acute abnormality. 2. Emphysema. Narrative 11/03/2023 10:30 PM READINESS PARAPROFESSIONAL EXAM: CT CHEST PULMONARY EMBOLISM W CONTRAST LOCATION: [facility] DATE: 11/03/2023 INDICATION: Pain; COPD exacerbation, shortness of breath. COMPARISON: None. TECHNIQUE: CT chest pulmonary angiogram during arterial phase injection of IV contrast. Multiplanar reformats and MIP reconstructions were performed. Dose reduction techniques were used. CONTRAST: 88 ml Isovue 370 FINDINGS: ANGIOGRAM CHEST: Pulmonary arteries are normal caliber and negative for pulmonary emboli. Thoracic aorta is negative for dissection. No CT evidence of right heart strain. LUNGS AND PLEURA: Mild emphysematous disease. Mild atelectasis and scarring at the lung bases. Bronchial wall thickening bilaterally. There is no pneumothorax or pleural effusion. MEDIASTINUM/AXILLAE: There is no lymph node enlargement. The heart size is normal. CORONARY ARTERY CALCIFICATION: Moderate. UPPER ABDOMEN: No acute upper abdominal abnormality. MUSCULOSKELETAL: Degenerative disease throughout the spine. Old L1 vertebral body compression fracture. Procedure Note Azam Hilliard MD - 11/03/2023 EXAM: CT CHEST PULMONARY EMBOLISM W CONTRAST LOCATION: [facility] DATE: 11/03/2023 INDICATION: Pain; COPD exacerbation, shortness of breath. COMPARISON: None. TECHNIQUE: CT chest pulmonary angiogram during arterial phase injection ofIV contrast. Multiplanar reformats and MIP reconstructions were performed.Dose reduction techniques were used. CONTRAST: 88 ml Isovue 370 FINDINGS: ANGIOGRAM CHEST: Pulmonary arteries are normal caliber and negative forpulmonary emboli. Thoracic aorta is negative for dissection. No CTevidence of right heart strain. LUNGS AND PLEURA: Mild emphysematous disease. Mild atelectasis andscarring at the lung bases. Bronchial wall thickening bilaterally. Thereis no pneumothorax or pleural effusion. MEDIASTINUM/AXILLAE: There is no lymph node enlargement. The heart size isnormal. CORONARY ARTERY CALCIFICATION: Moderate. UPPER ABDOMEN: No acute upper abdominal abnormality. MUSCULOSKELETAL: Degenerative disease throughout the spine. Old [id number] body compression fracture. IMPRESSION: 1. There is no pulmonary embolus, aortic aneurysm or dissection. No acuteabnormality. 2. Emphysema. Tyree Escobedo MD [facility] [place] ORDERABLES Final Result * (ABNORMAL) Basic metabolic panel (11/03/2023 8:35 PM READINESS PARAPROFESSIONAL) Sodium 135 135 - 145 mmol/L 11/03/2023 8:56 PM READINESS PARAPROFESSIONAL [facility] Comment:Reference intervals for this test were updated on 08/26/2023 to more accurately reflect our healthy population. There may be differences in the flagging of prior results with similar values performed with this method. Interpretation of those prior results can be made in the context of the updated reference intervals. Potassium 3.9 3.4 - 5.3 mmol/L 11/03/2023 8:56 PM READINESS PARAPROFESSIONAL [facility] Chloride 98 98 - 107 mmol/L 11/03/2023 8:56 PM READINESS PARAPROFESSIONAL [facility] Carbon Dioxide (CO2) 26 22 - 29 mmol/L 11/03/2023 8:56 PM [facility] Anion Gap 11 7 - 15 mmol/L 11/03/2023 8:56 PM [facility] Urea Nitrogen 11.4 8.0 - 23.0 mg/dL 11/03/2023 8:56 PM [facility] Creatinine 0.85 0.51 - 0.95 mg/dL 11/03/2023 8:56 PM [facility] GFR Estimate 78 >60 mL/min/1. 73m2 11/03/2023 8:56 PM [facility] Calcium 9.8 8.6 - 10.0 mg/dL 11/03/2023 8:56 PM [facility] Glucose 202(H) 70 - 99 mg/dL 11/03/2023 8:56 PM [facility] Blood BLOOD SPECIMEN / Unknown Venipuncture / Unknown 11/03/2023 8:35 PM READINESS PARAPROFESSIONAL 11/03/2023 8:37 PM READINESS PARAPROFESSIONAL Tyree Escobedo MD LAB - BLOOD ORDERABLES F inal Result [facility]. Room [address] [place] [address], [facility] [phone] * Hemoglobin A1c (06/23/2013 7:40 AM CDT) Hemoglobin A1C 5.7 4.3 - 6.0 % [facility] Blood specimen (specimen) 06/23/2013 7:40 AM CDT 06/23/2013 7:41 AM CDT Lali Knight MD LAB - BLOOD ORDERABLES Final Res ult Performing Organization Address City/[facility]/ZIP Co de Phone Number [facility]/[place] [address] * (ABNORMAL) Lipid Profile (05/13/2013 7:24 AM CDT) Cholesterol 226(H) 0 - 200 mg/dL [facility] Comment: LDL Cholesterol is the primary guide to therapy. The NCEP recommends further evaluation of: patients with cholesterol greater than 200 mg/dL if additional risk factors are present, cholesterol greater than 240 mg/dL, triglycerides greater than 150 mg/dL, or HDL less than 40 mg/dL. Triglycerides 145 0 - 150 mg/dL [facility] Comment:Non Fasting HDL Cholesterol 53 50 - 110 mg/dL [facility] LDL Cholesterol Calculated 144(H) 0 - 129 mg/dL [facility] Comment: LDL Cholesterol is the primary guide to therapy: LDL-cholesterol goal in high risk patients is <100 mg/dL and in very high risk patients is <70 mg/dL. VLDL-Cholesterol 29 0 - 30 mg/dL [facility] Cholesterol/HDL Ratio 4.3 0.0 - 5.0 [facility] Blood specimen (specimen) 05/13/2013 7:24 AM CDT 05/13/2013 7:25 AM CDT us Llai Knight MD LAB - BLOOD ORDERABLES Final Res ult [facility] [address] * PAP IMAGED THIN LAYER SCREEN (04/23/2011 9:17 AM CDT) PAP CESAR Smith Report Patient Name: JESSICA HUNG MR#: [id number] Specimen #: [id number] Collected: 04/23/2011 Received: 04/24/2011 Reported: 04/25/2011 13:38 Ordering Phy(s): AMBAR MARTINEZ SPECIMEN/STAIN PROCESS: Pap imaged thin layer prep screening (Surepath, FocalPoint with guided screening) Pap-Cyto x 1, Reflex HPV x 1 SOURCE: Cervical, endocervical Pap imaged thin layer prep screening (Surepath, FocalPoint with guided screening) SPECIMEN ADEQUACY: Satisfactory for evaluation. -Transformation zone component present. CYTOLOGIC INTERPRETATION: Negative for Intraepithelial Lesion or Malignancy Electronically signed out by: MAYELIN Nolasco (ASCP) Processed and screened at [facility] CLINICAL HISTORY: LMP: 04/01/2011 Previous normal pap Date of Last Pap: 11/14/2009 Previous ASC-US: 08/02/2008, Papanicolaou Test Limitations: Cervical cytology is a screening test with limited sensitivity; regular screening is critical for cancer prevention; Pap tests are primarily effective for the diagnosis/preventi on of squamous cell carcinoma, not adenocarcinomas or other cancers. TESTING LAB LOCATION: [facility] [address] [place] [address] [address] [place] [address] COLLECTION SITE: Client: [facility] Location: [facility] (W) [facility] Cytologic material (specimen) 04/23/2011 9:17 AM CDT 04/24/2011 1:24 PM CDT Ambar Martinez MD LAB - OPTIME CLINICAL SPECIM EN Final Result COPATH * BREATHING CAPACITY TEST [01713] (12/10/2005) Evan Vega MD PROCEDURES Final Result * COLONOSCOPY (12/07/2002) Narrative Tool Turret Lathe Set Up Operator, TDomenicWDomenic - 12/07/2002 *-*-*-*-* SEE SCANNED REPORT *-*-*-*-* Facundo Olguin MD PROCEDURES Final Result from Last 3 Months or Most Recently Relevant to Health Maintenance Insurance [address] [place] [id number] [facility] [employer] [facility] [employer] Advance Directives For more information, please contact: [phone] * No Code Status (Latest Code Status on File) Date Activated Date Inactivated Comments 12/18/2004 12:18 PM 12/18/2004 1:18 PM Care Teams Hat Block Maker Relationship Specialty Start Date End Date Asya Rao DPM PCP - Podiatry 05/27/08 Kevin Strickland MD [facility] [address], [place] [address] PCP - Ophthalmology Ophthalmology 02/02/10 Tyrese Rouse MD [facility] [place] [address] [place] [address] PCP - ENT ENT-Otolaryngology 11/27/11 Frw, None PCP - Obstetrics/Gynecology Family Practice 02/14/12 Facundo Mark MD PCP - Orthopaedics Orthopedics 03/15/13 Gab Wiseman MD [address] [place] [address] PCP - General Family Medicine 01/09/24 Louisa Montero, [facility] [address] [place] [address] Registered Dietitian Dietitian, Registered 12/15/23 Gab Wiseman MD [address] [place] [id number] Assigned PCP 12/25/23
--- OUTSIDE RECORDS SUMMARY | 2025-06-17 11:07 | XMS_ITS | Encounter Summary ---
Author Organization [place] Address [address] [facility] [place] [address] Care Team Providers Care Itinerant Teacher Assistant Name Role Phone Asya Rao DPM Unavailable [phone] Kevin Strickland MD Unavailable Tyrese Rouse MD Unavailable [phone] Frw, None Unavailable Unavailable Facundo Mark MD Unavailable [phone] Unavailable Gab Wiseman MD Unavailable Gab Wiseman MD Primary Care Provider [phone] Encounter Details Date Type Department Care Team (Late st Contact Info) Description 01/06/2025 MyC Medical Advice [address] [address] Lucía Sharp Social History Tobacco Use Types Packs/Day Years [...] Answer Date Recorded Do you have housing? 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 Not on file Not on file documented as of this encounter Plan of Treatment Not on file documented as of this encounter Visit Diagnoses Not on filedocumented in this encounter Additional Health Concerns Assessment Noted Time PHQ-9 Depression Total Score: 8 12/15/19 24 6:51 AM MACHINE OPERATOR HAY STACKER documented as of this encounter Care Teams Itinerant Teacher Assistant Relationship Specialty Start Date End Date Asya Rao DPM PCP - Podiatry 05/27/08 Kevin Strickland MD [facility] [address] [place] [address] PCP - Ophthalmology Ophthalmology 02/02/10 Tyrese Rouse MD [facility] [place] [address] [facility] [address] [place] [address] PCP - ENT ENT-Otolaryngology 11/27/11 Frw, None PCP - Obstetrics/Gynecology Family Practice 02/14/12 Facundo Mark MD PCP - Orthopaedics Orthopedics 03/15/13 Gab Wiseman MD [address] [place] [address] PCP - General Family Medicine 01/09/24 Louisa Montero, RD [facility] [address] [place] [address] Registered Dietitian Dietitian, Registered 12/15/23 Gab Wiseman MD [address] [place] [id number] Assigned PCP 12/25/23 documented as of this encounter
--- NOTE | 2025-06-17 11:26 | CRLHL7_ITS ---
For Patients: As a result of the 21st Century Cures Act, medical imaging exams and procedure reports are released immediately into your electronic medical record. You may view this report before your referring provider. If you have questions, please contact your health care provider. INDICATION: Fall with lower back pain. TECHNIQUE: CT chest, abdomen and pelvis acquired without contrast. COMPARISON: Lumbar spine CT dated 07/08/2024. FINDINGS: CHEST: Indeterminate mild subpleural ground-glass and reticulation is noted within anterior left upper lobe. Additional note is made other areas of mild peripheral ground-glass some of which contain reticulation (for reference left thyroid lobe 75). No consolidation. No pleural effusion or pneumothorax. No anterior mediastinal hematoma. Indeterminate mediastinal lymphadenopathy. For reference is a 12 millimeter precarinal lymph node (41). No definite hilar lymphadenopathy. The heart is normal in size with coronary calcification. Trace pericardial effusion. There is motion within the aortic root. The aorta appears to be nonaneurysmal. Subcentimeter axillary lymph nodes are noted. No chest wall mass. No significant inflammatory fat stranding. Extensive instrumentation within visualized right humerus which exerts streak artifact. There may be a non displaced fracture at the anterior left 3rd costal cartilage junction (45). this is seen within the area of ground-glass as well. ABDOMEN AND PELVIS: The liver is unremarkable. No perihepatic fluid or stranding. The gallbladder is partially distended. No biliary ductal dilatation. The spleen is unremarkable. The pancreas is unremarkable not well evaluated on a noncontrast CT. The adrenal glands are grossly normal. The kidneys are without hydronephrosis. Stone/renovascular calcifications are noted. The urinary bladder is partially distended. A large amount of stool is noted within the rectum. No definitive evidence of stercoral colitis. The upstream colon is nondilated and contains stool. The stomach is nondilated. The small bowel is nondilated without evidence of a small-bowel obstruction. No free air. No ascites. No evidence of acute traumatic hernia. No significant mesenteric stranding. The uterus is unremarkable. Extensive atherosclerosis is seen within nondilated aorta. Soft tissue calcifications are seen within the gluteal region bilaterally likely sequelae of fat necrosis. There is mild stranding within the gluteal regions which appears to be bilateral although slightly asymmetric on the left. No organized hematoma is seen. Bone windows demonstrate slight progression of chronic L2 compression fracture compared to 07/08/2024 with a proximally 30 percent loss of height anteriorly. An L1 compression fracture is unchanged. L4-5 intermediate diffusion. IMPRESSION: 1. Evaluation for acute traumatic injury is limited by lack of intravenous contrast. 2. Likely acute fracture of the left anterior 3rd costal cartilage junction. Recommend correlation with point tenderness. 3. Areas of mild peripheral ground-glass and reticulation within the lungs. This is greatest within the anterior left upper lobe which is seen at the region of the presumed rib fracture. The imaging findings are favored to represent a combination of left lung contusion and chronic bilateral lung scarring or atypical pneumonia. A short-term interval follow-up chest CT is recommended in 1 month. 4. Subtle asymmetric stranding within the left gluteal region. No organized hematoma. 5. Slight progression of a mild L2 compression fracture compared to lumbar CT dated 07/08/2024. Please note that all CT scans at this facility use dose modulation, iterative reconstruction, and/or weight-based dosing when appropriate to reduce radiation dose to as low as reasonably achievable. Dictated by Donald Kate MD @ 06/17/2025 1:03:33 PM (Electronically Signed)
--- NOTE | 2025-06-17 11:26 | CRLHL7_ITS ---
For Patients: As a result of the Century Cures Act, medical imaging exams and procedure reports are released immediately into your electronic medical record. You may view this report before your referring provider. If you have questions, please contact your health care provider. INDICATION: Fall with possible head trauma. TECHNIQUE: CT head without contrast. COMPARISON: 07/08/2020. FINDINGS: Brain: Examination limited by motion. No gross intra or extra-axial fluid collection, mass or edema. Mild periventricular white matter hypoattenuation. No hydrocephalus. Other: No displaced calvarial fracture. Visualized portions of the orbits, mastoids and paranasal sinuses are unremarkable. IMPRESSION: Examination is limited by motion. No gross acute abnormality is seen. Please note that all CT scans at this facility use dose modulation, iterative reconstruction, and/or weight-based dosing when appropriate to reduce radiation dose to as low as reasonably achievable. Dictated by Donald Kate MD @ 06/17/2025 12:47:05 PM (Electronically Signed)
--- NOTE | 2025-06-17 11:26 | CRLHL7_ITS ---
For Patients: As a result of the Cures Act, medical imaging exams and procedure reports are released immediately into your electronic medical record. You may view this report before your referring provider. If you have questions, please contact your health care provider. INDICATION: Fall. TECHNIQUE: CT cervical spine without contrast. COMPARISON: 07/08/2024. FINDINGS: Vertebrae: Mild lordosis. There are no fractures or suspicious bony lesions. Discs and facet joints: Mild degenerative disc disease. Extraspinal findings: There are emphysematous changes within the visualized apices. IMPRESSION: No acute osseous abnormality. Please note that all CT scans at this facility use dose modulation, iterative reconstruction, and/or weight-based dosing when appropriate to reduce radiation dose to as low as reasonably achievable. Dictated by Donald Kate MD @ 06/17/2025 12:49:43 PM (Electronically Signed)
--- NOTE | 2025-06-17 11:27 | ED.FALL ---
HPI - Fall General Chief Complaint: Fall/Minor Trauma Stated Complaint: fall Time Seen by Provider: 06/17/25 11:10 History of Present Illness HPI Narrative: Patient is a 60-year-old a complex patient who was found down this morning. She apparently fell last night in her home where she lives alone and spent the night on the floor. Patient states she was unable to get up. She was found this morning and EMS was called and she was brought to the emergency room complaining of back pain. Patient did not hit her head did not lose consciousness. She states she does not use drugs or alcohol but is on chronic Suboxone therapy. She has diabetes and is a chronic smoker with COPD. She states that her daughter will be joining her here in the emergency room soon. Patient has a listed personality disorder and social isolation. Related Data Home Medications ?Medication ?Instructions ?Recorded ?Confirmed atorvastatin 40 mg tablet (Lipitor) 40 mg PO DAILY 05/07/24 05/07/24 buspirone 10 mg tablet 10 mg PO TID 05/07/24 05/07/24 fluoxetine 20 mg capsule 60 mg PO DAILY 05/07/24 05/08/24 furosemide 20 mg tablet 20 mg PO DAILY 05/07/24 05/07/24 potassium chloride 20 mEq 20 meq PO DAILY 05/07/24 05/07/24 tablet,extended release(part/cryst) (Klor-Con M) propranolol 80 mg capsule,24 80 mg PO DAILY 05/07/24 05/07/24 hr,extended release aspirin 325 mg tablet 325 mg PO DAILY 05/08/24 05/08/24 budesonide-formoterol HFA 80 2 inh inhalation BID 05/08/24 05/08/24 mcg-4.5 mcg/actuation aerosol inhaler (Breyna) Previous Rx's ?Medication ?Instructions ?Recorded doxycycline hyclate 100 mg tablet 100 mg PO BID 4 days #8 tabs 05/08/24 hydroxyzine pamoate 25 mg capsule 25 mg PO Q4H PRN anxiety #30 caps 05/08/24 prednisone 20 mg tablet 40 mg (2 x 20 mg) PO DAILYWM 3 05/08/24 days #6 tabs propranolol 60 mg capsule,24 60 mg PO DAILY #30 caps 07/08/24 hr,extended release Allergies Allergy/AdvReac Type Severity Reaction Status Date / Time fentanyl Allergy Severe Anaphylaxis Verified 05/07/24 21:58 lidocaine Allergy Severe Anaphylaxis Verified 05/07/24 21:58 naproxen Allergy Unknown Verified 05/07/24 21:58 Penicillins Allergy Unknown Verified 05/07/24 21:58 Sulfa (Sulfonamide Allergy Unknown Verified 05/07/24 21:58 Antibiotics) adhesive Allergy Hives Verified 05/07/24 21:58 codeine Allergy Verified 05/07/24 21:58 NSAIDS (Non-Steroidal Allergy Verified 05/07/24 21:58 Anti-Inflamma Review of Systems Status of ROS: Reports: 10 or more systems reviewed and unremarkable except as noted in History and below [facility] Medical History Unspecified personality disorder ?F60.9 - Personality disorder, unspecified (ICD-10) Social isolation ?Z60.4 - Social exclusion and rejection (ICD-10) Financially insecure ?Z59.86 - Financial insecurity (ICD-10) Obesity ?E66.9 - Obesity, unspecified (ICD-10) Tobacco dependence ?F17.200 - Nicotine dependence, unspecified, uncomplicated (ICD-10) COPD (chronic obstructive pulmonary disease) ?J44.9 - Chronic obstructive pulmonary disease, unspecified (ICD-10) Opiate abuse, continuous ?F11.10 - Opioid abuse, uncomplicated (ICD-10) Chronic pain ?G89.29 - Other chronic pain (ICD-10) Chronic anxiety ?F41.9 - Anxiety disorder, unspecified (ICD-10) Type 2 diabetes mellitus ?E11.9 - Type 2 diabetes mellitus without complications (ICD-10) Surgical History H/O laminectomy ?Z98.890 - Other specified postprocedural states (ICD-10) Hx of skin graft ?Z94.5 - Skin transplant status (ICD-10) History of knee surgery ?Z98.890 - Other specified postprocedural states (ICD-10) History of ankle surgery ?Z98.890 - Other specified postprocedural states (ICD-10) S/P laparoscopic supracervical hysterectomy ?Z90.711 - Acquired absence of uterus with remaining cervical stump (ICD-10) History of total knee arthroplasty ?Z96.659 - Presence of unspecified artificial knee joint (ICD-10) S/P appy ?Z90.49 - Acquired absence of other specified parts of digestive tract (ICD-10) Social History What is your current living situation?: I presently have a place to live Problems where you live: no known problems Problems where you live details: NA In the past 12 months, utilities in danger of being shut off: no In past 12 months, lack of transportation kept you from medical appts, meetings, work, or getting things needed for daily living: yes In the past 12 mos, have been you worried that your food would run out before you had money to buy more?: never true In the past 12 mos, the food you bought just didn't last and you didn't have money to buy more?: never true Highest level of school completed/degree received: GED or equivalent Smoking Status: Current every day smoker What tobacco products do you use: cigarettes Smoking packs per day: 0.1 Smoking cigarettes per day: 2.0 Smoking quit date/years: <= 15 years ago Do you use any of these nicotine containing products: None Second hand tobacco smoke exposure: No How often do you have a drink containing alcohol: never AUDIT-C Alcohol total score: 0 Non-prescribed substance use: other Non-prescribed substance use details: suboxone Caffeine: No How often does anyone, including family, friends and others, physically hurt you: never How often does anyone, including family, friends and others, insult or talk down to you: never How often does anyone, including family, friends and others, threaten you with harm: never How often does anyone, including family, friends and others, scream or curse at you: never service: No Health Related Social Needs: transportation insecurity (Z59.82) Exam Narrative: Exam Narrative: EXAM GENERAL: Patient appears cachectic and emaciated. EYES: No scleral icterus. ENT: Tympanic membranes and oropharynx normal. THYROID: no thyroid nodules or thyromegaly. LYMPH: No supraclavicular or cervical lymphadenopathy. SKIN: Numerous skin tears and bruises noted. EXT: No dependent lower extremity pedal edema. HEART: Regular rate and rhythm with no murmurs, rubs, or gallops. LUNGS: Clear to auscultation bilaterally with no crackles or wheezes. ABD: Soft, non tender, non distended. PSYCH: Good eye contact, speech is not pressured. Back exam is normal. Neck exam is normal. No obvious injuries. Patient is extremely frail appears to be very unsteady. Const: Vital Signs, click to edit/add: Vital Signs - 24 hr 06/17/25 11:08 06/17/25 11:53 Temperature 96.7 F L Pulse Rate 71 Pulse Rate [Right Pulse Oximeter] 81 Respiratory Rate 20 Blood Pressure [Le ft Upper Arm] 107/85 Pulse Oximetry 96 96 Oxygen Delivery Me thod Room Air Course Course ED Course: I did and due to her questionable ability to provide history send off CT head neck chest abdomen pelvis CBC comprehensive metabolic panel troponin EKG UA Tylenol and salicylate level. Vital Signs Vital signs: Initial Vital Signs Temperature 96.7 F L 06/17/25 11:08 Temperature Source Temporal Artery Scan 06/17/25 11:08 Pulse Rate 81 06/17/25 11:08 Pulse Rhythm Regular 06/17/25 11:08 Pulse Strength 3+ Normal 06/17/25 11:08 Respiratory Rate 20 06/17/25 11:08 Blood Pressure 107/85 06/17/25 11:08 Blood Pressure Mean 92 06/17/25 11:08 Blood Pressure Position Sitting 06/17/25 11:08 Pulse Oximetry 96 06/17/25 11:08 Oxygen Delivery Method Room Air 06/17/25 11:08 Vital Signs Temperature 96.7 F L 06/17/25 11:08 Pulse Rate 81 06/17/25 11:08 Respiratory Rate 20 06/17/25 11:08 Blood Pressure 107/85 06/17/25 11:08 Pulse Oximetry 96 06/17/25 11:08 Oxygen Delivery Method Room Air 06/17/25 11:08 Temperature 96.7 F L 06/17/25 11:08 Pulse Rate 71 06/17/25 11:53 Respiratory Rate 20 06/17/25 11:08 Blood Pressure 107/85 06/17/25 11:08 Pulse Oximetry 96 06/17/25 11:53 Oxygen Delivery Method Room Air 06/17/25 11:08 Medications Administered Medications: Generic Name Dose Route Start Last Admin Trade Name Freq PRN Reason Stop Dose Admin Potassium Chloride 10 meq in 100 mls @ 100 mls/hr 06/17/25 12:45 06/17/25 12:43 Potassium Chloride IVPB 06/17/25 15:14 100 mls/hr Q90M JULIAN Administration Discontinued Medications Generic Name Dose Route Start Last Admin Trade Name Randy PRN Reason Stop Dose Admin Buprenorphine/Naloxone 1 each 06/17/25 11:26 06/17/25 11:43 Buprenorphine-Nalox 8-2mg Film SUBLINGUAL 06/17/25 11:27 1 each ONCE ONE Administration MDM - Fall MDM Narrative Medical decision making narrative: Patient is a 60-year-old woman who lives independently. She presents after being found down in her apartment. Patient is not certain what happen. I did do CT of the head neck which showed no acute abnormalities. CT of the chest abdomen pelvis shows a lung contusion as well as a fracture of the 3rd rib and L2 compression fracture. Patient has numerous areas of excoriation and bruising as well as skin tears. She is on Suboxone has missed several doses as she has been down. We did give her her dose of Suboxone here in the emergency room. Patient's electrolytes show hypokalemia with a potassium 2.3. She is on IV replacement. Her liver function tests are also noted to be elevated. Alcohol level is negative urine toxicology pending. Alcohol and salicylate levels are negative. CPK is 12,419. At this time patient is agreeable to admission. I have spoken with health social work professor and patient is found to be a vulnerable adult. She needs aggressive hydration correction of her electrolytes and further workup for transaminitis. Also noted is a prolonged QT interval of 546 corrected 507 which may be contributing to her falling. Lab Data Labs: Lab Results 06/17/25 06/17/25 Range/Units 11:25 11:40 WBC 14.48 H (4.50-11.00) K/uL RBC 4.77 (4.00-5.20) m/uL Hgb 14.5 (12.0-16.0) gm/dL Hct 40.8 (33.0-51.0) % MCV 86 (80-100) fL MCH 30 (26-34) pg MCHC 36 (32-36) gm/dL RDW Coeff of Paty 12.3 (11.5-15.5) % Plt Count 279 (140-440) K/uL Neut % (Auto) 80.9 H (42.0-72.0) % Lymph % (Auto) 14.0 L (20-44) % Troup % (Auto) 4.8 (0.0-11.0) % Eos % (Auto) 0.1 (0.0-7.0) % Baso % (Auto) 0.1 (0.0-3.0) % Neut # (Auto) 11.70 H (1.7-7.0) K/uL Lymph # (Auto) 2.00 (0.90-2.90) K/uL Troup # (Auto) 0.70 (0.00-0.90) K/UL Eos # (Auto) 0.00 (0.00-0.50) K/uL Baso # (Auto) 0.00 (0.00-0.30) K/uL Abs Immat Gran (auto) 0.00 (0.00-0.30) K/uL Imm/Tot Granulo (auto) 0.1 % Sodium 140 (135-149) mmol/L Potassium 2.3 L* (3.6-5.1) mmol/L Chloride 107 (96-114) mmol/L Carbon Dioxide 23 (20-32) mmol/L Anion Gap 10 (7-15) mEq/L BUN 14 (7-30) mg/dL Creatinine 0.7 (0.5-1.5) mg/dL Estimated Creat Clear 46.73 Estimated GFR 98 ml/min Glucose 93 (60-115) mg/dL Calcium 8.9 (8.4-10.6) mg/dL Total Bilirubin 2.3 H (0.1-1.5) mg/dL AST 435 H (12-35) U/L ALT 166 H (4-35) U/L Alkaline Phosphatase 140 (40-150) U/L Total Creatine Kinase 06575 H (41-117) U/L Troponin I 0.04 (0.01-0.04) ng/mL Total Protein 7.7 (6.0-8.3) g/dL Albumin 3.8 (3.3-5.0) g/dL Urine Color Dark yellow (Yellow) Urine Appearance Clear (Clear) Urine pH 7.0 (5.0-8.5) Ur Specific Laurier >= 1.030 (1.000-1.030) Urine Protein 1+ A (Negative) Urine Glucose (UA) Negative (Negative) Urine Ketones Trace A (Negative) Urine Blood 2+ A (Negative) Urine Nitrite Negative (Negative) Urine Bilirubin Negative (Negative) Urine Urobilinogen 0.2 (0.2-1.0) Ur Leukocyte Esterase Negative (Negative) Urine RBC 0-2 (0-2) Urine WBC 0-2 (0-5) Ur Squamous Epith Cells Few (None-Few) Urine Bacteria None (None) Salicylates < 1.0 L (1.0-10) mg/dL Acetaminophen < 10.0 (10.0-30.0) ug/mL Ethyl Alcohol < 0.01 (0.01-0.03) % Discharge Plan Discharge Clinical Impression: Weakness Patient Disposition: Admitted As Observation Condition: Stable Activity Level: Other Discharge Diet: Other
[2025-06-17] MEDS: BUPRENORPHINE-NALOX 8-2MG FILM 1 EACH SUBLINGUAL ×2 (11:43→20:44)
[2025-06-17 11:51] LABS: Hematocrit 40.8 % (33.0-51.0); Hemoglobin* 14.5 gm/dL (12.0-16.0); Immature Granulocytes Pct Auto 0.1 %; Mean Corpuscular HGB Conc 36 gm/dL (32-36); Mean Corpuscular Hemoglobin 30 pg (26-34); Mean Corpuscular Volume 86 fL (80-100); RDW Coefficient of Variation % 12.3 % (11.5-15.5); Red Blood Count 4.77 m/uL (4.00-5.20); White Blood Count* 14.48 K/uL (4.50-11.00)
[2025-06-17 11:56] LABS: Immature Granulocytes Abs Auto 0.00 K/uL (0.00-0.30); Lymphocytes Absolute Auto 2.00 K/uL (0.90-2.90); Slide Review Reflex No
[2025-06-17 12:02] LABS: Appearance Urine Clear (Clear)
[2025-06-17 12:12] LABS: Albumin* 3.8 g/dL (3.3-5.0); Chloride* 107 mmol/L (96-114); Sodium* 140 mmol/L (135-149)
[2025-06-17 12:14] LABS: Blood Urea Nitrogen* 14 mg/dL (7-30); Creatinine* 0.7 mg/dL (0.5-1.5); Est. Creatinine Clearance* 46.73; Estimated Glomerular Filt Rate 98 ml/min
[2025-06-17 12:15] LABS: Alanine Aminotransferase* 166 U/L (4-35); Alkaline Phosphatase* 140 U/L (40-150); Anion Gap 10 mEq/L (7-15); Aspartate Amino Transferase* 435 U/L (12-35); Bilirubin Total* 2.3 mg/dL (0.1-1.5); Calcium* 8.9 mg/dL (8.4-10.6); Carbon Dioxide* 23 mmol/L (20-32); Glucose* 93 mg/dL (60-115); Total Protein* 7.7 g/dL (6.0-8.3)
[2025-06-17 12:34] LABS: Acetaminophen* < 10.0 ug/mL (10.0-30.0); Ethanol* < 0.01 % (0.01-0.03); Potassium* 2.3 mmol/L (3.6-5.1); Salicylate* < 1.0 mg/dL (1.0-10)
[2025-06-17] MEDS: POTASSIUM CHLORIDE 10 MEQ/100 ML PIGGYBACK 100 MEQ IVPB ×4 (12:43→21:53)
[2025-06-17 12:46] LABS: Creatine Kinase* 12419 U/L (41-117)
[2025-06-17 13:55] LABS: Cannabinoid Screen Urine POSITIVE (Negative); Methamphetamines Screen Urine Negative (Negative); Tricyclic Antidepressant Urine Negative (Negative)
--- NOTE | 2025-06-17 16:24 | PC.SOCIAL ---
Discharge planning: Met with pt's dtr without pt at her request. Dtr shared that she had been estranged from pt for 10 years before pt moved to [place] a year ago. Dtr has seen pt only a few times this year. Dtr is concerned that pt should not return to her home as she fell yesterday and lay on the floor overnight. Dtr is concerned pt may have been falling frequently without letting anyone know, although pt denies this. Dtr would like pt to go to an assisted living facility. Provided dtr with resource list of assisted living facilities and shared the process for applying for admission from home if pt is interested in this. Also provided dtr with contact information for the [place] [facility] to share any concerns she has about pt's safety. Met with pt who states the last time she fell before yesterday was 6 months ago. Pt states she has a walker at home but does not use it. Pt states she is willing to accept a PT/OT safety eval at home if MD recommends and states she has had this in the past. Pt is interested in getting a medical alarm pendant system she could use to call for help if she falls or needs help again in her home. Pt was willing to accept home delivered meal information but states she does not currently need that information as she eats only one meal at night and can get this for herself. Discussed option for Assisted Living which pt is not at all interested in. Discussed option for high school social science teacher to make a referral to the [facility] for a [facility] care assessment to contact pt at home for evaluation of eligibility for free services from the critical access hospital to assist with safety and services at home. PT was agreeable to high school social science teacher making this referral. rubber and plastics worker completed online referral for [facility] Assessment. Provided dtr and pt with information on [facility], Assisted Living Facilities, home security professional care, home delivered meals and medical emergency alert systems. Pt and dtr are aware of how to contact high school social science teacher. rubber and plastics worker to follow up as needed.
--- NOTE | 2025-06-17 16:33 | PM.IMHP1 ---
Assessment and Plan Assessment and plan (1) Fall: Problem comment: -patient was found on the ground for unknown period of time -patient denies loss of consciousness or using medications/drugs. -urine drug test was positive for benzodiazepines Status: Acute (2) Rhabdomyolysis: Problem comment: Patient was found on the ground for unknown period time Start maintenance IV fluids Give another IV fluid bolus Follow-up tests Status: Acute (3) Rib fracture: Problem comment: CT showed acute fracture of the left anterior 3rd costal cartilage junction. No respiratory distress Will monitor Status: Acute (4) Elevated liver enzymes: Problem comment: -Suspected acute cholecystitis -leukocytosis -Gallbladder ultrasound showed Biliary sludge with dilated common bile duct and positive sonographic Escalera`s sign, equivocal for acute cholecystitis. Consider nuclear medicine HIDA scan or MRCP for further evaluation. -will start IV antibiotics. Note that patient has history of penicillin allergy and prolonged QTC on EKG (avoid fluoroquinolones). -patient will need surgical evaluation tomorrow morning. Status: Acute (5) Leukocytosis: Problem comment: As above Status: Acute (6) Cholecystitis, acute: Problem comment: As above Status: Suspected (7) History of opioid use: Problem comment: On Suboxone 8/2 t.i.d. Status: Acute (8) Chronic anxiety: Problem comment: -continue fluoxetine and buspar Status: Acute (9) Chronic pain: Problem comment: -suboxone ordered Status: Acute (10) Financially insecure: Problem comment: -SW consulted Status: Acute (11) Social isolation: Problem comment: -SW consulted Status: Acute (12) Unspecified personality disorder: Problem comment: -borderline/hysteria likely Status: Acute (13) Type 2 diabetes mellitus: Problem comment: Sliding scale insulin Glucose upon admission to the floor was in the 70s and patient was given dextrose 50 IV. Status: Acute (14) Sinus bradycardia: Problem comment: Chronic Status: Acute (15) Prolonged Q-T interval on ECG: Problem comment: Will not give patient fluoroquinolones Status: Acute (16) Vertebral fracture: Problem comment: CT at the ED showed Slight progression of a mild L2 compression fracture compared to lumbar CT dated 07/08/2024. Status: Acute Total Time Spent Total Time Spent: Time spent: Today I spent 75 minutes seeing the patient, discussing the patient with ER staff, reviewing Expanse and EPIC notes/diagnostics, discussing the care plan with our care time that includes social work, PT/OT, pharmacy, RT, fdc and documenting my impressions and plan in the medical record. Hospitalist- H&P: ALONA History of Present Illness Date Seen: 06/17/25 Chief complaint: fall Narrative: Jessica Hung is a 60 year old female with past medical history of COPD, history of opioid use disorder and tobacco dependence, diabetes, chronic anxiety and social isolation who presents to the ED after she was found on the ground for unknown period of time. Patient denies alcohol use, she states that she is taking Suboxone. Her urine drug test was positive for benzodiazepines, patient states that the last time she had benzodiazepine was a week ago when she took a pill from her daughter. Patient was drowsy upon my examination and history taking, she denied cardiac, kidney, liver issues. When asked about abdominal pain she said she never had a problem regarding abdominal pain and she was nontender or my exam. At the ED, patient was hemodynamically stable. EKG showed sinus bradycardia and QTC at 5:07 a.m. serum creatinine kinase was elevated more than 12 K. Normal kidney function. Abnormal AST/ALT levels with elevated bilirubin at 2.3. CT head was normal. CT chest abdomen and pelvis showed multiple issues including a left anterior 3rd rib cartilage is fracture. Review of Systems Status of ROS: Reports: 6 or more systems reviewed and unremarkable except as noted in History and below Medical Decision Making Medical Decision Making Has patient completed a Health Care Directive: No [facility] Medical History (Updated 06/17/25 @ 20:09 by Heather Sykes MD) History of opioid use ?F11.91 - Opioid use, unspecified, in remission (ICD-10) Unspecified personality disorder ?F60.9 - Personality disorder, unspecified (ICD-10) Social isolation ?Z60.4 - Social exclusion and rejection (ICD-10) Financially insecure ?Z59.86 - Financial insecurity (ICD-10) Obesity ?E66.9 - Obesity, unspecified (ICD-10) Tobacco dependence ?F17.200 - Nicotine dependence, unspecified, uncomplicated (ICD-10) COPD (chronic obstructive pulmonary disease) ?J44.9 - Chronic obstructive pulmonary disease, unspecified (ICD-10) Opiate abuse, continuous ?F11.10 - Opioid abuse, uncomplicated (ICD-10) Chronic pain ?G89.29 - Other chronic pain (ICD-10) Chronic anxiety ?F41.9 - Anxiety disorder, unspecified (ICD-10) Type 2 diabetes mellitus ?E11.9 - Type 2 diabetes mellitus without complications (ICD-10) Surgical History H/O laminectomy ?Z98.890 - Other specified postprocedural states (ICD-10) Hx of skin graft ?Z94.5 - Skin transplant status (ICD-10) History of knee surgery ?Z98.890 - Other specified postprocedural states (ICD-10) History of ankle surgery ?Z98.890 - Other specified postprocedural states (ICD-10) S/P laparoscopic supracervical hysterectomy ?Z90.711 - Acquired absence of uterus with remaining cervical stump (ICD-10) History of total knee arthroplasty ?Z96.659 - Presence of unspecified artificial knee joint (ICD-10) S/P appy ?Z90.49 - Acquired absence of other specified parts of digestive tract (ICD-10) Social History What is your current living situation?: I presently have a place to live Problems where you live: no known problems Problems where you live details: n/a In the past 12 months, utilities in danger of being shut off: no In past 12 months, lack of transportation kept you from medical appts, meetings, work, or getting things needed for daily living: no In the past 12 mos, have been you worried that your food would run out before you had money to buy more?: never true In the past 12 mos, the food you bought just didn't last and you didn't have money to buy more?: never true Highest level of school completed/degree received: some college, no degree Smoking Status: Current some day smoker What tobacco products do you use: cigarettes Smoking packs per day: 0.1 Smoking cigarettes per day: 2.0 Smoking quit date/years: <= 15 years ago Do you use any of these nicotine containing products: None Second hand tobacco smoke exposure: No How often do you have a drink containing alcohol: never How often do you have six or more drinks on one occasion: Never AUDIT-C Alcohol total score: 0 Non-prescribed substance use: denies use Non-prescribed substance use details: suboxone Caffeine: No How often does anyone, including family, friends and others, physically hurt you: never How often does anyone, including family, friends and others, insult or talk down to you: never How often does anyone, including family, friends and others, threaten you with harm: never How often does anyone, including family, friends and others, scream or curse at you: never service: No Meds Home Medications and Allergies Home Medications ?Medication ?Instructions ?Recorded ?Confirmed ?Type atorvastatin 40 mg tablet (Lipitor) 40 mg PO HS 05/07/24 06/17/25 History buspirone 10 mg tablet 10 mg PO TID 05/07/24 06/17/25 History fluoxetine 20 mg capsule 60 mg PO DAILY 05/07/24 06/17/25 History furosemide 20 mg tablet 20 mg PO DAILY PRN 05/07/24 06/17/25 History potassium chloride 20 mEq 20 meq PO DAILY PRN 05/07/24 06/17/25 History tablet,extended release(part/cryst) (Klor-Con M) albuterol sulfate 90 mcg/actuation 2 inh inhalation Q4H PRN 06/17/25 06/17/25 History aerosol inhaler aspirin 81 mg tablet 81 mg PO DAILY 06/17/25 06/17/25 History buprenorphine 8 mg-naloxone 2 mg 1 tab sublingual 3XD 06/17/25 06/17/25 History sublingual tablet fluticasone 100 mcg-salmeterol 50 1 ea inhalation BID 06/17/25 06/17/25 History mcg/dose blistr powdr for inhalation hydroxyzine HCl 25 mg tablet 25 - 50 mg PO 3XD PRN 06/17/25 06/17/25 History ibuprofen 200 mg tablet 800 mg PO TID-QID PRN 06/17/25 06/17/25 History ipratropium 0.5 mg-albuterol 3 mg 3 ml inhalation Q6H PRN 06/17/25 06/17/25 History (2.5 mg base)/3 mL nebulization soln lisinopril 5 mg tablet 5 mg PO DAILY 06/17/25 06/17/25 History omeprazole 20 mg capsule,delayed 20 mg PO QPM 06/17/25 06/17/25 History release trazodone 100 mg tablet 200 mg PO HS 06/17/25 06/17/25 History Allergies Allergy/AdvReac Type Severity Reaction Status Date / Time fentanyl Allergy Severe Anaphylaxis Verified 05/07/24 21:58 lidocaine Allergy Severe Anaphylaxis Verified 05/07/24 21:58 naproxen Allergy Unknown Verified 05/07/24 21:58 Penicillins Allergy Unknown Verified 05/07/24 21:58 Sulfa (Sulfonamide Allergy Unknown Verified 05/07/24 21:58 Antibiotics) adhesive Allergy Hives Verified 05/07/24 21:58 codeine Allergy Verified 05/07/24 21:58 NSAIDS (Non-Steroidal Allergy Verified 05/07/24 21:58 Anti-Inflamma Exam Narrative: Exam Narrative: Physical exam GENERAL: Drowsy, no acute distress. No respiratory distress, room air. HEAD AND NECK: Atraumatic, normocephalic CARDIOVASCULAR: RRR. Normal S1, S2. No murmurs. RESPIRATORY: Clear to auscultation B/L. Good air entry B/L. On room air. GASTROINTESTINAL: Not distended, not tender to palpation. NEUROLOGY: Drowsy, oriented X 3. Normal speech. MUSCULOSKELETAL: Mild tenderness left to the sternum around the 3rd rib area anteriorly. Right shoulder and right elbow bruising, on examination patient was able to rotate her shoulder fully without issues. Const: Vital Signs, click to edit/add: Vital Signs - 24 hr 06/17/25 11:08 06/17/25 11:53 06/17/25 14:26 Temperature 96.7 F L 98.7 F Pulse Rate 71 Pulse Rate [Right Pulse Oximeter] 81 56 L Respiratory Rate 20 18 Blood Pressure [Le ft Upper Arm] 107/85 107/78 Pulse Oximetry 96 96 94 Oxygen Delivery Me thod Room Air Room Air Hospitalist - H&P: Result Labs Labs: Short CBC 06/17/25 Range/Units 11:40 WBC 14.48 H (4.50-11.00) K/uL Hgb 14.5 (12.0-16.0) gm/dL Hct 40.8 (33.0-51.0) % Plt Count 279 (140-440) K/uL BMP 06/17/25 11:40 Sodium 140 Potassium 2.3 L* Chloride 107 Carbon Dioxide 23 BUN 14 Creatinine 0.7 Glucose 93 Calcium 8.9 Cardiac Enzymes 06/17/25 Range/Units 11:40 Total Creatine Kinase 05973 H (41-117) U/L Troponin I 0.04 (0.01-0.04) ng/mL Liver Function 06/17/25 Range/Units 11:40 Total Bilirubin 2.3 H (0.1-1.5) mg/dL AST 435 H (12-35) U/L ALT 166 H (4-35) U/L Alkaline Phosphatase 140 (40-150) U/L Albumin 3.8 (3.3-5.0) g/dL Urine 06/17/25 Range/Units 11:25 Urine Color Dark yellow (Yellow) Urine Appearance Clear (Clear) Urine pH 7.0 (5.0-8.5) Ur Specific [place] >= 1.030 (1.000-1.030) Urine Protein 1+ A (Negative) Urine Glucose (UA) Negative (Negative) ECG Attestation: I personally reviewed and interpreted this ECG as follows: Interpretation: Sinus bradycardia. Prolonged QTC at [address] Chest/Ab/Pelvis: Radiologist's impression: INDICATION: Fall with lower back pain. TECHNIQUE: CT chest, abdomen and pelvis acquired without contrast. COMPARISON: Lumbar spine CT dated 07/08/2024. FINDINGS: CHEST: Indeterminate mild subpleural ground-glass and reticulation is noted within anterior left upper lobe. Additional note is made other areas of mild peripheral ground-glass some of which contain reticulation (for reference left thyroid lobe 75). No consolidation. No pleural effusion or pneumothorax. No anterior mediastinal hematoma. Indeterminate mediastinal lymphadenopathy. For reference is a 12 millimeter precarinal lymph node (41). No definite hilar lymphadenopathy. The heart is normal in size with coronary calcification. Trace pericardial effusion. There is motion within the aortic root. The aorta appears to be nonaneurysmal. Subcentimeter axillary lymph nodes are noted. No chest wall mass. No significant inflammatory fat stranding. Extensive instrumentation within visualized right humerus which exerts streak artifact. There may be a non displaced fracture at the anterior left 3rd costal cartilage junction (45). this is seen within the area of ground-glass as well. ABDOMEN AND PELVIS: The liver is unremarkable. No perihepatic fluid or stranding. The gallbladder is partially distended. No biliary ductal dilatation. The spleen is unremarkable. The pancreas is unremarkable not well evaluated on a noncontrast CT. The adrenal glands are grossly normal. The kidneys are without hydronephrosis. Stone/renovascular calcifications are noted. The urinary bladder is partially distended. A large amount of stool is noted within the rectum. No definitive evidence of stercoral colitis. The upstream colon is nondilated and contains stool. The stomach is nondilated. The small bowel is nondilated without evidence of a small-bowel obstruction. No free air. No ascites. No evidence of acute traumatic hernia. No significant mesenteric stranding. The uterus is unremarkable. Extensive atherosclerosis is seen within nondilated aorta. Soft tissue calcifications are seen within the gluteal region bilaterally likely sequelae of fat necrosis. There is mild stranding within the gluteal regions which appears to be bilateral although slightly asymmetric on the left. No organized hematoma is seen. Bone windows demonstrate slight progression of chronic L2 compression fracture compared to 07/08/2024 with a proximally 30 percent loss of height anteriorly. An L1 compression fracture is unchanged. L4-5 intermediate diffusion. IMPRESSION: 1. Evaluation for acute traumatic injury is limited by lack of intravenous contrast. 2. Likely acute fracture of the left anterior 3rd costal cartilage junction. Recommend correlation with point tenderness. 3. Areas of mild peripheral ground-glass and reticulation within the lungs. This is greatest within the anterior left upper lobe which is seen at the region of the presumed rib fracture. The imaging findings are favored to represent a combination of left lung contusion and chronic bilateral lung scarring or atypical pneumonia. A short-term interval follow-up chest CT is recommended in 1 month. 4. Subtle asymmetric stranding within the left gluteal region. No organized hematoma. 5. Slight progression of a mild L2 compression fracture compared to lumbar CT dated 07/08/2024. US - abdomen: Radiologist's impression: TECHNIQUE: Limited right upper quadrant ultrasound examination of the abdomen was performed. Grayscale and color Doppler images were obtained. COMPARISON: CT chest abdomen pelvis 06/17/2025. FINDINGS: Liver: Normal in size and contour. The hepatic echotexture is normal. No suspicious hepatic masses. Gallbladder: Gallbladder is normal in size. Biliary sludge. No cholelithiasis. Sonographic Escalera sign was positive. Common bile duct: Measures 10 mm. Pancreas: Visualized portions unremarkable. Right kidney: Normal in size. No hydronephrosis. No suspicious renal masses or obstructive urinary calculus. Vascular: Visualized aorta and IVC are unremarkable. IMPRESSION: Biliary sludge with dilated common bile duct and positive sonographic Escalera`s sign, equivocal for acute cholecystitis. Consider nuclear medicine HIDA scan or MRCP for further evaluation.
[2025-06-17] MEDS: DEXTROSE 50 % SYRINGE IVP (17:34)
[2025-06-17] MEDS: 0.9 % SODIUM CHLORIDE 500 ML 500 ML IV (20:11)
[2025-06-17] MEDS: BUDESONIDE 0.5 MG/2ML NEB NEB (20:59)
[2025-06-17] MEDS: ALBUTEROL SULFATE 2.5 MG/3 ML VIAL.NEB NEB (21:02)
[2025-06-17] MEDS: cefTRIAXone 1 GM in 0.9 % SODIUM CHLORIDE Mini-bag 100 ML IVPB (21:12)
[2025-06-17] MEDS: 5 % DEXTROSE/0.9% SOD CHLORIDE 1,000 ML 100 ML IV (21:43)
--- NOTE | 2025-06-17 22:30 | PC.NURSE ---
Patient admitted from ED for frequent falls and known substance abuse. Patient is up with assist of one - two, walker, and gait belt also utilizing bed and chair alarm for safety. Patient has PIV x 2 both patent. Patient is currently NPO for aspiration precautions blood sugars completed as ordered, Dextrose received for blood sugar of 79 and D5 with .9 hung after blood sugar of 66. Patient is continent of clear dark ajit urine, Bowel sound throughout hypoactive, she is passing flatus. Daughter Yuridia has been updated and would like MD to call 06/18/25 a.m. if possible.Patient has scheduled pain medication in locked medroom drawer. she has generalized bruising and abrasions throughout torso and and all extremities, lotion applied to dry areas.
[2025-06-17] MEDS: HEPARIN 5,000 UNIT/0.5 ML INJ 5000 UNIT SUBCUT (23:13)
[2025-06-18] VITALS (9 sets, daily range): BP systolic 104–150; BP diastolic 58–82; PULSE 50–95; RESP 16–18; TEMP 36.5–36.8; O2SAT 91–99
[2025-06-18 06:11] LABS: Lactate* 1.9 mmol/L (0.5-1.9)
[2025-06-18 06:16] LABS: Hematocrit 35.9 % (33.0-51.0); Hemoglobin* 12.8 gm/dL (12.0-16.0); Immature Granulocytes Abs Auto 0.03 K/uL (0.00-0.30); Immature Granulocytes Pct Auto 0.3 %; Lymphocytes Absolute Auto 3.19 K/uL (0.90-2.90); Mean Corpuscular HGB Conc 36 gm/dL (32-36); Mean Corpuscular Hemoglobin 31 pg (26-34); Mean Corpuscular Volume 86 fL (80-100); RDW Coefficient of Variation % 12.6 % (11.5-15.5); Red Blood Count 4.19 m/uL (4.00-5.20); White Blood Count* 10.89 K/uL (4.50-11.00)
[2025-06-18 06:31] LABS: Slide Review Reflex No
[2025-06-18 06:32] LABS: Albumin* 3.3 g/dL (3.3-5.0)
[2025-06-18 06:33] LABS: Chloride* 113 mmol/L (96-114); Sodium* 140 mmol/L (135-149)
[2025-06-18 06:35] LABS: Blood Urea Nitrogen* 11 mg/dL (7-30); Creatinine* 0.7 mg/dL (0.5-1.5); Est. Creatinine Clearance* 46.73; Estimated Glomerular Filt Rate 98 ml/min
[2025-06-18 06:36] LABS: Alanine Aminotransferase* 157 U/L (4-35); Alkaline Phosphatase* 107 U/L (40-150); Anion Gap 4 mEq/L (7-15); Aspartate Amino Transferase* 304 U/L (12-35); Bilirubin Direct* 0.5 mg/dL (0.0-0.5); Bilirubin Total* 1.1 mg/dL (0.1-1.5); Calcium* 8.3 mg/dL (8.4-10.6); Carbon Dioxide* 23 mmol/L (20-32); Glucose* 99 mg/dL (60-115); Total Protein* 6.7 g/dL (6.0-8.3)
[2025-06-18 06:41] LABS: Potassium* 2.3 mmol/L (3.6-5.1)
--- NOTE | 2025-06-18 06:48 | PC.NURSE ---
End of shift [id number]: Pt AxOx4, cooperative, and pleasant with cares. Pt is A1 GB W, walking hallways to relief aches and pains throughout the body. Patient NPO for aspiration precautions. D5 with NS running, Blood sugars remaining at 113. Continent of bladder. Bed alarm in place, able to voice needs. Pt appears resting with call light in reach.
[2025-06-18 06:50] LABS: INR 1.00 (0.91-1.10); Prothrombin Time 14.0 Seconds
[2025-06-18] MEDS: metroNIDAZOLE 500 MG/100 ML PIGGYBACK 100 MG IVPB ×2 (08:24→16:42)
[2025-06-18 08:30] LABS: Creatine Kinase* 4543 U/L (41-117)
[2025-06-18] MEDS: POTASSIUM CHLORIDE 10 MEQ/100 ML PIGGYBACK 100 MEQ IVPB ×4 (08:31→13:31)
[2025-06-18] MEDS: 5 % DEXTROSE/0.9% SOD CHLORIDE 1,000 ML 150 ML IV (08:31)
--- NOTE | 2025-06-18 09:11 | RESP.RT ---
Patient sitting on edge of bed breathing comfortably, regular/easy, SaO2 93% on room air, BBS clear and equal. Patient has home respiratory medications of DuoNeb. Albuterol MDI use with extension, Advair. Patient tobacco dependant.
[2025-06-18] MEDS: ALBUTEROL SULFATE 2.5 MG/3 ML VIAL.NEB NEB ×4 (10:02→21:44)
[2025-06-18] MEDS: BUDESONIDE 0.5 MG/2ML NEB NEB ×2 (10:02→21:44)
[2025-06-18] MEDS: BUSPIRONE 10 MG TABLET PO ×3 (10:02→21:45)
[2025-06-18] MEDS: SODIUM CHLORIDE 0.9 % (FLUSH) 10 ML SYRINGE 5 ML IVF (10:03)
[2025-06-18] MEDS: ASPIRIN 81 MG TABLET EC PO (10:03)
[2025-06-18] MEDS: FLUOXETINE HCL 20 MG CAPSULE 60 MG PO (10:03)
[2025-06-18] MEDS: BUPRENORPHINE-NALOX 8-2MG FILM 1 EACH SUBLINGUAL ×3 (10:16→21:46)
[2025-06-18 11:14] LABS: Chloride* 113 mmol/L (96-114); Sodium* 142 mmol/L (135-149)
[2025-06-18 11:17] LABS: Blood Urea Nitrogen* 9 mg/dL (7-30); Creatinine* 0.7 mg/dL (0.5-1.5); Est. Creatinine Clearance* 46.73; Estimated Glomerular Filt Rate 98 ml/min
[2025-06-18 11:18] LABS: Anion Gap 6 mEq/L (7-15); Calcium* 8.3 mg/dL (8.4-10.6); Carbon Dioxide* 23 mmol/L (20-32); Glucose* 131 mg/dL (60-115)
[2025-06-18 11:25] LABS: Potassium* 1.9 mmol/L (3.6-5.1)
[2025-06-18] MEDS: POTASSIUM BICARB 25 MEQ EFFERVESCENT TAB PO ×3 (12:01→15:13)
[2025-06-18] MEDS: HEPARIN 5,000 UNIT/0.5 ML INJ 5000 UNIT SUBCUT ×2 (12:01→22:56)
[2025-06-18 14:48] LABS: Potassium* 2.4 mmol/L (3.6-5.1)
[2025-06-18] MEDS: 5 % DEX/0.9 SOD CHL+KCL 20 mEq 1,000 ML 75 ML IV (16:42)
[2025-06-18] MEDS: OMEPRAZOLE 20 MG CAPSULE DR PO (16:43)
[2025-06-18] MEDS: POTASSIUM CHLORIDE 10 MEQ CAPSULE ER 60 MEQ PO (16:43)
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
[2025-06-18 20:03] LABS: Potassium* 4.7 mmol/L (3.6-5.1)
[2025-06-18] MEDS: cefTRIAXone 1 GM in 0.9 % SODIUM CHLORIDE Mini-bag 100 ML IVPB (21:43)
[2025-06-18] MEDS: TRAZODONE HCL 50 MG TABLET 200 MG PO (21:44)
[2025-06-18] MEDS: ATORVASTATIN CALCIUM 40 MG TABLET PO (21:45)
[2025-06-19] VITALS (8 sets, daily range): BP systolic 112–143; BP diastolic 56–84; PULSE 52–90; RESP 16–18; TEMP 36.2–37; O2SAT 91–96
[2025-06-19] MEDS: metroNIDAZOLE 500 MG/100 ML PIGGYBACK 100 MG IVPB (00:43)
[2025-06-19] MEDS: BUPRENORPHINE-NALOX 8-2MG FILM 1 EACH SUBLINGUAL ×4 (03:35→20:37)
--- NOTE | 2025-06-19 06:15 | PC.NURSE ---
Pt alert & orientated. ?Up with x1 with walker. ?VSS. Pt reported pain and wanted more medications than scheduled pain medication; patient educated. ?Pt has been NPO since midnight. ?Pt able to reposition self. ?Tele in place with NSR noted. Bed alarm on for safety and call light within reach. ?
[2025-06-19 06:24] LABS: Hematocrit 28.9 % (33.0-51.0); Hemoglobin* 10.3 gm/dL (12.0-16.0); Immature Granulocytes Abs Auto 0.00 K/uL (0.00-0.30); Immature Granulocytes Pct Auto 0.0 %; Mean Corpuscular HGB Conc 36 gm/dL (32-36); Mean Corpuscular Hemoglobin 31 pg (26-34); Mean Corpuscular Volume 86 fL (80-100); RDW Coefficient of Variation % 12.8 % (11.5-15.5); Red Blood Count 3.35 m/uL (4.00-5.20); White Blood Count* 8.08 K/uL (4.50-11.00)
[2025-06-19 06:29] LABS: Lymphocytes Absolute Auto 4.00 K/uL (0.90-2.90); Slide Review Reflex No
[2025-06-19 06:32] LABS: Albumin* 2.5 g/dL (3.3-5.0); Chloride* 118 mmol/L (96-114); Sodium* 142 mmol/L (135-149)
[2025-06-19 06:35] LABS: Alanine Aminotransferase* 120 U/L (4-35); Alkaline Phosphatase* 83 U/L (40-150); Anion Gap 0 mEq/L (7-15); Aspartate Amino Transferase* 142 U/L (12-35); Bilirubin Direct* 0.3 mg/dL (0.0-0.5); Bilirubin Total* 0.6 mg/dL (0.1-1.5); Blood Urea Nitrogen* 5 mg/dL (7-30); Calcium* 8.0 mg/dL (8.4-10.6); Carbon Dioxide* 24 mmol/L (20-32); Creatine Kinase* 1182 U/L (41-117); Creatinine* 0.7 mg/dL (0.5-1.5); Est. Creatinine Clearance* 46.73; Estimated Glomerular Filt Rate 98 ml/min; Glucose* 98 mg/dL (60-115); Total Protein* 5.4 g/dL (6.0-8.3)
[2025-06-19 06:55] LABS: Potassium* 2.8 mmol/L (3.6-5.1)
[2025-06-19] MEDS: POTASSIUM BICARB 25 MEQ EFFERVESCENT TAB PO ×2 (09:50→11:44)
[2025-06-19] MEDS: POTASSIUM CHLORIDE 10 MEQ CAPSULE ER 40 MEQ PO ×2 (09:50→17:16)
[2025-06-19] MEDS: BUSPIRONE 10 MG TABLET PO ×3 (09:51→20:37)
[2025-06-19] MEDS: BUDESONIDE 0.5 MG/2ML NEB NEB ×2 (09:51→20:37)
[2025-06-19] MEDS: ALBUTEROL SULFATE 2.5 MG/3 ML VIAL.NEB NEB ×3 (09:51→20:37)
[2025-06-19] MEDS: FLUOXETINE HCL 20 MG CAPSULE 60 MG PO (09:51)
--- NOTE | 2025-06-19 09:57 | PM.GSCN ---
History of Present Illness Consult details Date Seen: 06/19/25 Consult date: 06/19/25 Narrative: Patient is a 60-year-old female who was brought in by ambulance on 06/17/2025 after being found down at home. On workup she had evidence of rhabdomyolysis, rib fracture, chronic opioid use and abuse of benzodiazepines. She does have a history of previous falls. On workup in the emergency department she had an abdominal ultrasound, which showed some mild distention of the gallbladder and presence of sludge. At the time of evaluation she had a reported positive Escalera sign. Talking to the patient today she denies any abdominal pain prior to her fall. No abdominal pain since admission. She has been tolerating food without difficulty. She is feeling very hungry this morning and wants to eat. Her surgical history is positive for an appendectomy and hysterectomy. Review of Systems Status of ROS: Reports: 6 or more systems reviewed and unremarkable except as noted in History and below [facility] Medical History (Updated 06/19/25 @ 10:04 by Erika Ware MD) History of opioid use ?F11.91 - Opioid use, unspecified, in remission (ICD-10) Unspecified personality disorder ?F60.9 - Personality disorder, unspecified (ICD-10) Social isolation ?Z60.4 - Social exclusion and rejection (ICD-10) Financially insecure ?Z59.86 - Financial insecurity (ICD-10) Obesity ?E66.9 - Obesity, unspecified (ICD-10) Tobacco dependence ?F17.200 - Nicotine dependence, unspecified, uncomplicated (ICD-10) COPD (chronic obstructive pulmonary disease) ?J44.9 - Chronic obstructive pulmonary disease, unspecified (ICD-10) Opiate abuse, continuous ?F11.10 - Opioid abuse, uncomplicated (ICD-10) Chronic pain ?G89.29 - Other chronic pain (ICD-10) Chronic anxiety ?F41.9 - Anxiety disorder, unspecified (ICD-10) Type 2 diabetes mellitus ?E11.9 - Type 2 diabetes mellitus without complications (ICD-10) Surgical History H/O laminectomy ?Z98.890 - Other specified postprocedural states (ICD-10) Hx of skin graft ?Z94.5 - Skin transplant status (ICD-10) History of knee surgery ?Z98.890 - Other specified postprocedural states (ICD-10) History of ankle surgery ?Z98.890 - Other specified postprocedural states (ICD-10) S/P laparoscopic supracervical hysterectomy ?Z90.711 - Acquired absence of uterus with remaining cervical stump (ICD-10) History of total knee arthroplasty ?Z96.659 - Presence of unspecified artificial knee joint (ICD-10) S/P appy ?Z90.49 - Acquired absence of other specified parts of digestive tract (ICD-10) Social History What is your current living situation?: I presently have a place to live Problems where you live: no known problems Problems where you live details: n/a In the past 12 months, utilities in danger of being shut off: no In past 12 months, lack of transportation kept you from medical appts, meetings, work, or getting things needed for daily living: no In the past 12 mos, have been you worried that your food would run out before you had money to buy more?: never true In the past 12 mos, the food you bought just didn't last and you didn't have money to buy more?: never true Highest level of school completed/degree received: some college, no degree Smoking Status: Current some day smoker What tobacco products do you use: cigarettes Smoking packs per day: 0.1 Smoking cigarettes per day: 2.0 Smoking quit date/years: <= 15 years ago Do you use any of these nicotine containing products: None Second hand tobacco smoke exposure: No How often do you have a drink containing alcohol: never How often do you have six or more drinks on one occasion: Never AUDIT-C Alcohol total score: 0 Non-prescribed substance use: denies use Non-prescribed substance use details: suboxone Caffeine: No How often does anyone, including family, friends and others, physically hurt you: never How often does anyone, including family, friends and others, insult or talk down to you: never How often does anyone, including family, friends and others, threaten you with harm: never How often does anyone, including family, friends and others, scream or curse at you: never service: No Meds Home Medications and Allergies Home Medications ?Medication ?Instructions ?Recorded ?Confirmed ?Type atorvastatin 40 mg tablet (Lipitor) 40 mg PO HS 05/07/24 06/17/25 History buspirone 10 mg tablet 10 mg PO TID 05/07/24 06/17/25 History fluoxetine 20 mg capsule 60 mg PO DAILY 05/07/24 06/17/25 History furosemide 20 mg tablet 20 mg PO DAILY PRN 05/07/24 06/17/25 History potassium chloride 20 mEq 20 meq PO DAILY PRN 05/07/24 06/17/25 History tablet,extended release(part/cryst) (Klor-Con M) albuterol sulfate 90 mcg/actuation 2 inh inhalation Q4H PRN 06/17/25 06/17/25 History aerosol inhaler aspirin 81 mg tablet 81 mg PO DAILY 06/17/25 06/17/25 History buprenorphine 8 mg-naloxone 2 mg 1 tab sublingual 3XD 06/17/25 06/17/25 History sublingual tablet fluticasone 100 mcg-salmeterol 50 1 ea inhalation BID 06/17/25 06/17/25 History mcg/dose blistr powdr for inhalation hydroxyzine HCl 25 mg tablet 25 - 50 mg PO 3XD PRN 06/17/25 06/17/25 History ibuprofen 200 mg tablet 800 mg PO TID-QID PRN 06/17/25 06/17/25 History ipratropium 0.5 mg-albuterol 3 mg 3 ml inhalation Q6H PRN 06/17/25 06/17/25 History (2.5 mg base)/3 mL nebulization soln lisinopril 5 mg tablet 5 mg PO DAILY 06/17/25 06/17/25 History omeprazole 20 mg capsule,delayed 20 mg PO QPM 06/17/25 06/17/25 History release trazodone 100 mg tablet 200 mg PO HS 06/17/25 06/17/25 History Allergies Allergy/AdvReac Type Severity Reaction Status Date / Time fentanyl Allergy Severe Anaphylaxis Verified 05/07/24 21:58 lidocaine Allergy Severe Anaphylaxis Verified 05/07/24 21:58 naproxen Allergy Unknown Verified 05/07/24 21:58 Penicillins Allergy Unknown Verified 05/07/24 21:58 Sulfa (Sulfonamide Allergy Unknown Verified 05/07/24 21:58 Antibiotics) adhesive Allergy Hives Verified 05/07/24 21:58 codeine Allergy Verified 05/07/24 21:58 NSAIDS (Non-Steroidal Allergy Verified 05/07/24 21:58 Anti-Inflamma Exam Narrative: Exam Narrative: General: Alert and oriented, no acute distress Respiratory: Equal breath rise bilaterally, maintained on room air CV: Well perfused Abdomen: Soft, nondistended and nontender. Negative Escalera sign. Incisions well healed. Const: Vital Signs, click to edit/add: Vital Signs - 24 hr 06/18/25 11:00 06/18/25 15:00 06/18/25 15:00 Temperature 97.7 F Pulse Rate 71 Pulse Rate [Left R adial] Pulse Rate [Right Pulse Oximeter] 67 67 Respiratory Rate 16 16 Blood Pressure [Le ft Arm] 126/80 Pulse Oximetry 99 [facility] 06/18/25 15:00 06/18/25 19:00 06/18/25 20:55 Temperature 98.3 F 97.7 F Pulse Rate Pulse Rate [Left R adial] 86 Pulse Rate [Right Pulse Oximeter] 69 95 Respiratory Rate 16 18 16 Blood Pressure [Le ft Arm] 108/76 150/82 H Pulse Oximetry 94 95 [facility] Room Air 06/18/25 22:43 06/18/25 23:04 06/19/25 03:45 Temperature 98.2 F 98.5 F Pulse Rate 67 Pulse Rate [Left R adial] Pulse Rate [Right Pulse Oximeter] 68 71 Respiratory Rate 16 18 Blood Pressure [Le ft Arm] 104/58 L 125/80 Pulse Oximetry 91 92 Oxygen Delivery [facility] Room Air Room Air 06/19/25 07:00 06/19/25 07:00 06/19/25 07:00 Temperature 98.0 F Pulse Rate 52 L Pulse Rate [Left R adial] Pulse Rate [Right Pulse Oximeter] 90 90 Respiratory Rate 18 18 Blood Pressure [Le ft Arm] 143/84 H Pulse Oximetry 91 [facility] Results Labs Labs: Abnormal lab results 06/18/25 06/18/25 06/19/25 Range/Units 10:53 14:19 06:07 RBC 3.35 L (4.00-5.20) m/uL Hgb 10.3 L (12.0-16.0) gm/dL Hct 28.9 L (33.0-51.0) % Neut % (Auto) 41.0 L (42.0-72.0) % Lymph % (Auto) 49.4 H (20-44) % Lymph # (Auto) 4.00 H (0.90-2.90) K/uL Potassium 1.9 L* 2.4 L* 2.8 L* (3.6-5.1) mmol/L Chloride 118 H (96-114) mmol/L Anion Gap 6 L 0 L (7-15) mEq/L BUN 5 L (7-30) mg/dL Glucose 131 H (60-115) mg/dL Calcium 8.3 L 8.0 L (8.4-10.6) mg/dL AST 142 H (12-35) U/L ALT 120 H (4-35) U/L Total Creatine Kinase 1182 H (41-117) U/L C-Reactive Protein 3.8 H (0.5-1.0) mg/dL Total Protein 5.4 L (6.0-8.3) g/dL Albumin 2.5 L (3.3-5.0) g/dL Diabetes panel 06/18/25 06/18/25 06/18/25 Range/Units 10:53 14:19 19:42 Sodium 142 (135-149) mmol/L Potassium 1.9 L* 2.4 L* 4.7 (3.6-5.1) mmol/L Chloride 113 (96-114) mmol/L Carbon Dioxide 23 (20-32) mmol/L BUN 9 (7-30) mg/dL Creatinine 0.7 (0.5-1.5) mg/dL Glucose 131 H (60-115) mg/dL Calcium 8.3 L (8.4-10.6) mg/dL AST (12-35) U/L ALT (4-35) U/L Alkaline Phosphatase (40-150) U/L Total Protein (6.0-8.3) g/dL Albumin (3.3-5.0) g/dL 06/19/25 Range/Units 06:07 Sodium 142 (135-149) mmol/L Potassium 2.8 L* (3.6-5.1) mmol/L Chloride 118 H (96-114) mmol/L Carbon Dioxide 24 (20-32) mmol/L BUN 5 L (7-30) mg/dL Creatinine 0.7 (0.5-1.5) mg/dL Glucose 98 (60-115) mg/dL Calcium 8.0 L (8.4-10.6) mg/dL AST 142 H (12-35) U/L ALT 120 H (4-35) U/L Alkaline Phosphatase 83 (40-150) U/L Total Protein 5.4 L (6.0-8.3) g/dL Albumin 2.5 L (3.3-5.0) g/dL Calcium panel 06/18/25 06/19/25 Range/Units 10:53 06:07 Calcium 8.3 L 8.0 L (8.4-10.6) mg/dL Albumin 2.5 L (3.3-5.0) g/dL Pituitary panel 06/18/25 06/18/25 06/18/25 Range/Units 10:53 14:19 19:42 Sodium 142 (135-149) mmol/L Potassium 1.9 L* 2.4 L* 4.7 (3.6-5.1) mmol/L Chloride 113 (96-114) mmol/L Carbon Dioxide 23 (20-32) mmol/L BUN 9 (7-30) mg/dL Creatinine 0.7 (0.5-1.5) mg/dL Glucose 131 H (60-115) mg/dL Calcium 8.3 L (8.4-10.6) mg/dL 06/19/25 Range/Units 06:07 Sodium 142 (135-149) mmol/L Potassium 2.8 L* (3.6-5.1) mmol/L Chloride 118 H (96-114) mmol/L Carbon Dioxide 24 (20-32) mmol/L BUN 5 L (7-30) mg/dL Creatinine 0.7 (0.5-1.5) mg/dL Glucose 98 (60-115) mg/dL Calcium 8.0 L (8.4-10.6) mg/dL Adrenal panel 06/18/25 06/18/25 06/18/25 Range/Units 10:53 14:19 19:42 Sodium 142 (135-149) mmol/L Potassium 1.9 L* 2.4 L* 4.7 (3.6-5.1) mmol/L Chloride 113 (96-114) mmol/L Carbon Dioxide 23 (20-32) mmol/L BUN 9 (7-30) mg/dL Creatinine 0.7 (0.5-1.5) mg/dL Glucose 131 H (60-115) mg/dL Calcium 8.3 L (8.4-10.6) mg/dL Total Bilirubin (0.1-1.5) mg/dL AST (12-35) U/L ALT (4-35) U/L Alkaline Phosphatase (40-150) U/L Total Protein (6.0-8.3) g/dL Albumin (3.3-5.0) g/dL 06/19/25 Range/Units 06:07 Sodium 142 (135-149) mmol/L Potassium 2.8 L* (3.6-5.1) mmol/L Chloride 118 H (96-114) mmol/L Carbon Dioxide 24 (20-32) mmol/L BUN 5 L (7-30) mg/dL Creatinine 0.7 (0.5-1.5) mg/dL Glucose 98 (60-115) mg/dL Calcium 8.0 L (8.4-10.6) mg/dL Total Bilirubin 0.6 (0.1-1.5) mg/dL AST 142 H (12-35) U/L ALT 120 H (4-35) U/L Alkaline Phosphatase 83 (40-150) U/L Total Protein 5.4 L (6.0-8.3) g/dL Albumin 2.5 L (3.3-5.0) g/dL All other labs normal. Imaging Abdomen CT scan report/results: report reviewed and image reviewed Abdominal ultrasound report/results: report reviewed and image reviewed Progress Note:A&P Assessment and plan (1) Biliary sludge determined by ultrasound: Status: Acute Assessment and Plan: Patient is a 60-year-old female found down for prolonged period of time with evidence of new rib fracture, compression fractures of the back and rectum I lysis. During workup she had evidence of elevated transaminases, which triggered an abdominal ultrasound. Normal bilirubin and alkaline phosphatase. Talking to the hospitalist on their examination yesterday and today she did have some tenderness in the right upper quadrant. On evaluation of the ultrasound there is mild distention of the gallbladder with some sludge present. When she 1st presented to the emergency department she had a leukocytosis, which has since resolved. She has been on antibiotics for presumed acute cholecystitis. On evaluation today low concern for cholecystitis. Patient could have had transient biliary stasis associated with her acute illness and being down for prolonged period of time. She denies any abdominal pain for me this morning and no abdominal pain with deep palpation. Recommend starting a regular diet. Patient was instructed to let the nurse know if she develops any right-sided or epigastric abdominal pain with eating. Okay to stop antibiotics. No recommendations for surgery at this time. Please call the on-call surgeon with any acute clinical changes, questions or concerns.
[2025-06-19] MEDS: SODIUM CHLORIDE 0.9 % (FLUSH) 10 ML SYRINGE 5 ML IVF ×2 (10:02→20:53)
[2025-06-19] MEDS: ACETAMINOPHEN 500 MG TABLET 1000 MG PO ×2 (11:44→20:11)
[2025-06-19 12:42] LABS: Potassium* 3.3 mmol/L (3.6-5.1)
--- NOTE | 2025-06-19 15:04 | PM.IMPN1 ---
Assessment and Plan Assessment and plan (1) Fall: Problem comment: -patient was found on the ground for unknown period of time -patient denies loss of consciousness or using medications/drugs. -urine drug test was positive for benzodiazepines - suspect this was combination of benzodiazepine abuse, possible hypoglycemia, and orthostasis - Continue working with PT and OT, unclear if TCU need or home health with supervision for discharge. Status: Acute (2) Rhabdomyolysis: Problem comment: - 06/18 Patient was found on the ground for unknown period time, CK on admission was 12,500. Today it is 4,500. Cr stable at 0.7. Continue IVF, decrease rate to maintenance, recheck CK and Cr in am. - 06/19 CK much improved in 1000 range now. Cr stable. Stop IVF. Status: Acute (3) Rib fracture: Problem comment: CT showed acute fracture of the left anterior 3rd costal cartilage junction. No respiratory distress Will monitor Status: Acute (4) Elevated liver enzymes: Problem comment: -Suspected acute cholecystitis -leukocytosis -Gallbladder ultrasound showed Biliary sludge with dilated common bile duct and positive sonographic Escalera`s sign, equivocal for acute cholecystitis. Consider nuclear medicine HIDA scan or MRCP for further evaluation. - Note that patient has history of penicillin allergy and prolonged QTC on EKG (avoid fluoroquinolones). Continue ceftriaxone and add metronidazole. I spoke with Dr. Ware from general surgery, who will see patient in consult tomorrow (due to hypokalemia and rhabdo, I do not think she is a good surgical candidate today, but may be by tomorrow, will treat medically in the meantime). NPO after midnight. - 06/19 Dr. Ware from general surgery saw patient today. Transaminases are improving, may be cholestasis related to dehydration/illness. No surgery at this time, likely not cholecystitis, stop IV antibiotics, ADAT, monitor for symptoms. Status: Acute (5) Leukocytosis: Problem comment: As above Status: Resolved (6) Cholecystitis, acute: Problem comment: As above Status: Ruled-out (7) History of opioid use: Problem comment: On Suboxone 07/02 t.i.d., increased 06/18 for pain. Status: Chronic (8) Chronic anxiety: Problem comment: -continue fluoxetine and buspar - abusing daughter's benzodiazepines Status: Chronic (9) Chronic pain: Problem comment: -suboxone ordered Status: Chronic (10) Financially insecure: Problem comment: -SW consulted Status: Acute (11) Social isolation: Problem comment: -SW consulted Status: Acute (12) Unspecified personality disorder: Problem comment: -borderline/hysteria likely Status: Chronic (13) Type 2 diabetes mellitus: Problem comment: Sliding scale insulin Glucose upon admission to the floor was in the 70s and patient was given dextrose 50 IV. POC glucoses 100-140, continue ISS Status: Chronic (14) Sinus bradycardia: Problem comment: Chronic Status: Chronic (15) Prolonged Q-T interval on ECG: Problem comment: Avoid fluoroquinolones Status: Acute (16) Vertebral fracture: Problem comment: CT at the ED showed Slight progression of a mild L2 compression fracture compared to lumbar CT dated 07/08/2024. Status: Acute (17) Hypokalemia: Problem comment: - Profound hypokalemia, worsened despite replacement overnight and this morning. I checked a magnesium level this morning which was within normal limits. I suspect she has either been noncompliant with her home potassium, or became depleted over the last day while she was unable to get up from the floor. I am not finding any medications given today that would of contributed to hypokalemia. - 06/19 improving. Start a maintenance replacement of KCl 40mEq BID. Monitor. No evidence of GI loss, not on diuretics or other potassium wasting medications. May be endocrine related. If does not improve, will need outpatient w/u with possible referral to endocrinology or nephrology. Status: Acute Subjective Time Seen by Provider: 07:45 Date Seen: 06/19/25 Interval history: Jessica c/o pain everywhere. When I ask her to be more specific, she continue to insist she has pain everywhere, no where specific. I asked her how her abdomen was today and she asked me why I was asking about that. I reminded her that we were concerned about the possibility of cholecystitis. I asked if it hurt, and she said no. Jessica said you doctors don't understand suboxone - it dosen't work for pain. I want the oxycodone like I had last night, that worked for me. She told me that she takes ibuprofen 800mg 3-4 times a day at home and it hasn't caused her any problems despite having it on her allergy list. Has constant L anterior upper CP since fall, unchanged. EKG done in late in the evening for this complaint, was reassuring. Exam Narrative: Exam Narrative: General: No acute distress. Awake, alert, oriented x3. No pallor. No jaundice. Oropharynx: Clear. Mucous membranes moist. Cardiovascular: Regular rate and rhythm. No murmurs, gallops, or rubs. Respiratory: Clear to auscultation bilaterally. No wheezes or crackles. Abdomen: Bowel sounds present. Soft, nondistended, mildly tender in the epigastrium and RUQ. Extremities: No lower extremity edema. Const: Vital Signs, click to edit/add: Vital Signs - 24 hr 06/18/25 19:00 06/18/25 20:55 06/18/25 22:43 Temperature 97.7 F Pulse Rate 67 Pulse Rate [Left R adial] 86 Pulse Rate [Right Pulse Oximeter] 95 Respiratory Rate 18 16 Blood Pressure [Le ft Arm] 150/82 H Pulse Oximetry 95 Oxygen Delivery Me thod Room Air 06/18/25 23:04 06/19/25 03:45 06/19/25 07:00 Temperature 98.2 F 98.5 F Pulse Rate 52 L Pulse Rate [Left R adial] Pulse Rate [Right Pulse Oximeter] 68 71 Respiratory Rate 16 18 Blood Pressure [Le ft Arm] 104/58 L 125/80 Pulse Oximetry 91 92 Oxygen Delivery Me thod Room Air Room Air 06/19/25 07:00 06/19/25 07:00 06/19/25 11:00 Temperature 98.0 F 98.6 F Pulse Rate Pulse Rate [Left R adial] Pulse Rate [Right Pulse Oximeter] 90 90 73 Respiratory Rate 18 18 18 Blood Pressure [Le ft Arm] 143/84 H 122/56 L Pulse Oximetry 91 95 Oxygen Delivery Me thod Room Air Room Air Labs Labs: Laboratory Results - last 24 hr 06/17/25 06/18/25 06/19/25 11:40 19:42 06:07 WBC 8.08 RBC 3.35 L Hgb 10.3 L Hct 28.9 L MCV 86 MCH 31 MCHC 36 RDW Coeff of Paty 12.8 Plt Count 232 Neut % (Auto) 41.0 L Lymph % (Auto) 49.4 H [place] % (Auto) 6.4 Eos % (Auto) 2.8 Baso % (Auto) 0.4 Neut # (Auto) 3.30 Lymph # (Auto) 4.00 H [place] # (Auto) 0.50 Eos # (Auto) 0.23 Baso # (Auto) 0.03 Abs Immat Gran (auto) 0.00 Imm/Tot Granulo (auto) 0.0 Sodium 142 Potassium 4.7 2.8 L* Chloride 118 H Carbon Dioxide 24 Anion Gap 0 L BUN 5 L Creatinine 0.7 Estimated Creat Clear 46.73 Estimated GFR 98 Glucose 98 Calcium 8.0 L Total Bilirubin 0.6 Direct Bilirubin 0.3 AST 142 H ALT 120 H Alkaline Phosphatase 83 Total Creatine Kinase 1182 H C-Reactive Protein 3.6 H 3.8 H Total Protein 5.4 L Albumin 2.5 L Lab Acknowledgement 06/19/25 06/19/25 10:07 12:21 WBC RBC Hgb Hct MCV MCH MCHC RDW Coeff of Paty Plt Count Neut % (Auto) Lymph % (Auto) [place] % (Auto) Eos % (Auto) Baso % (Auto) Neut # (Auto) Lymph # (Auto) [place] # (Auto) Eos # (Auto) Baso # (Auto) Abs Immat Gran (auto) Imm/Tot Granulo (auto) Sodium Potassium 3.3 L Chloride Carbon Dioxide Anion Gap BUN Creatinine Estimated Creat Clear Estimated GFR Glucose Calcium Total Bilirubin Direct Bilirubin AST ALT Alkaline Phosphatase Total Creatine Kinase C-Reactive Protein Total Protein Albumin Lab Acknowledgement Test Added
[2025-06-19] MEDS: OMEPRAZOLE 20 MG CAPSULE DR PO (17:16)
--- NOTE | 2025-06-19 18:22 | PC.NURSE ---
end of shift: VSS. on RA. tolerating adv. diet. Patient up to chair and ambulating hallway SBA with walker. Patient denies N/V/SOB. K is 3.3 recheck in AM. BG WNL no sliding scale used. Nicotine patch to Back of Left shoulder.
[2025-06-19] MEDS: ATORVASTATIN CALCIUM 40 MG TABLET PO (20:37)
[2025-06-19] MEDS: TRAZODONE HCL 50 MG TABLET 200 MG PO (20:37)
[2025-06-19] MEDS: HEPARIN 5,000 UNIT/0.5 ML INJ 5000 UNIT SUBCUT (23:43)
[2025-06-20 03:00] VITALS: BP 122/58; PULSE 71; RESP 18; TEMP 36.2; O2SAT 96
[2025-06-20] MEDS: BUPRENORPHINE-NALOX 8-2MG FILM 1 EACH SUBLINGUAL ×2 (03:49→11:14)
--- NOTE | 2025-06-20 05:48 | PC.NURSE ---
Pt alert & orientated.? Up with x1 with walker.? VSS. No n/v. Pt reported pain scheduled Suboxone given.? Pt on a regular diet and tolerating.? Pt able to reposition self.? Tele in place with NSR noted.? Bed alarm on for safety and call light within reach.??
[2025-06-20 06:19] LABS: Hematocrit 29.8 % (33.0-51.0); Hemoglobin* 10.3 gm/dL (12.0-16.0); Immature Granulocytes Abs Auto 0.01 K/uL (0.00-0.30); Immature Granulocytes Pct Auto 0.1 %; Mean Corpuscular HGB Conc 35 gm/dL (32-36); Mean Corpuscular Hemoglobin 30 pg (26-34); Mean Corpuscular Volume 87 fL (80-100); RDW Coefficient of Variation % 13.1 % (11.5-15.5); Red Blood Count 3.43 m/uL (4.00-5.20); White Blood Count* 6.74 K/uL (4.50-11.00)
[2025-06-20 06:25] LABS: Lymphocytes Absolute Auto 3.50 K/uL (0.90-2.90); Slide Review Reflex No
[2025-06-20 06:31] LABS: Albumin* 2.7 g/dL (3.3-5.0); Chloride* 118 mmol/L (96-114); Potassium* 3.2 mmol/L (3.6-5.1); Sodium* 142 mmol/L (135-149)
[2025-06-20 06:34] LABS: Alanine Aminotransferase* 109 U/L (4-35); Alkaline Phosphatase* 89 U/L (40-150); Anion Gap 1 mEq/L (7-15); Aspartate Amino Transferase* 106 U/L (12-35); Bilirubin Direct* 0.2 mg/dL (0.0-0.5); Bilirubin Total* 0.6 mg/dL (0.1-1.5); Blood Urea Nitrogen* 6 mg/dL (7-30); Calcium* 8.5 mg/dL (8.4-10.6); Carbon Dioxide* 23 mmol/L (20-32); Creatine Kinase* 680 U/L (41-117); Creatinine* 0.7 mg/dL (0.5-1.5); Est. Creatinine Clearance* 46.73; Estimated Glomerular Filt Rate 98 ml/min; Glucose* 85 mg/dL (60-115); Total Protein* 5.7 g/dL (6.0-8.3)
[2025-06-20 07:00] VITALS: PULSE 68
[2025-06-20 08:17] VITALS: BP 167/98; PULSE 66; RESP 14; TEMP 36.4; O2SAT 95
[2025-06-20 08:45] VITALS: PULSE 66; RESP 14
[2025-06-20] MEDS: POTASSIUM BICARB 25 MEQ EFFERVESCENT TAB PO (10:12)
[2025-06-20] MEDS: FLUOXETINE HCL 20 MG CAPSULE 60 MG PO (10:13)
[2025-06-20] MEDS: BUSPIRONE 10 MG TABLET PO (10:13)
[2025-06-20] MEDS: ASPIRIN 81 MG TABLET EC PO (10:13)
[2025-06-20] MEDS: POTASSIUM CHLORIDE 10 MEQ CAPSULE ER 30 MEQ PO (10:14)
[2025-06-20 11:00] VITALS: BP 149/71; PULSE 68; RESP 14; TEMP 36.4; O2SAT 95
[2025-06-20] MEDS: HEPARIN 5,000 UNIT/0.5 ML INJ 5000 UNIT SUBCUT (11:15)
[2025-06-20] MEDS: SODIUM CHLORIDE 0.9 % (FLUSH) 10 ML SYRINGE 5 ML IVF (11:16)
--- NOTE | 2025-06-20 11:30 | P.DS_ITS ---
DS: Providers Provider Time Seen by Provider: 10:10 Date Seen: 06/20/25 Date of admission: 06/17/25 15:50 Primary care physician: Not a Local Provider Admitting Clinician: Radhika Gama MD Consults: 06/17/25 11:42 Consult to Locks Tender [CONS] Urgent Comment: Reason for Consult:: Discharge Planning Needs 06/17/25 15:50 Consult to Occupational Therapy [CONS] Routine Comment: Reason(s) for OT Consult:: Evaluate and Treat Any Restrictions?:: No Restrictions Consult to Physical Therapy [CONS] Routine Comment: Reason(s) for PT Consult:: Evaluate and Treat Any Restrictions?:: No Restrictions 06/18/25 07:23 Consult to Physician [CONS] Routine Comment: Consulting Provider: Erika Ware Has provider been notified: No Attending Physician on discharge: Maggie Paulson MD Date of Discharge: 06/20/25 DS: Diagnosis Discharge Diagnosis (1) Biliary sludge determined by ultrasound: Status: Acute (2) Fall: Status: Acute Problem details: -patient was found on the ground for unknown period of time -patient denies loss of consciousness or using medications/drugs. -urine drug test was positive for benzodiazepines - suspect this was combination of benzodiazepine abuse, possible hypoglycemia, and orthostasis - Evaluated by PT and OT. Will set up home PT/OT. (3) Rhabdomyolysis: Status: Acute Problem details: - 06/18 Patient was found on the ground for unknown period time, CK on admission was 12,500. Today it is 4,500. Cr stable at 0.7. Continue IVF, decrease rate to maintenance, recheck CK and Cr in am. - 06/19 CK much improved in 1000 range now. Cr stable. Stop IVF. - 06/20 pain everywhere resolved. (4) Rib fracture: Status: Acute Problem details: CT showed acute fracture of the left anterior 3rd costal cartilage junction. No respiratory distress, no hypoxia. Acetaminophen or ibuprofen (which patient takes at home despite reported NSAID allergy) as needed for pain. (5) Elevated liver enzymes: Status: Acute Problem details: -Suspected acute cholecystitis -leukocytosis -Gallbladder ultrasound showed Biliary sludge with dilated common bile duct and positive sonographic Escalera`s sign, equivocal for acute cholecystitis. Consider nuclear medicine HIDA scan or MRCP for further evaluation. - Note that patient has history of penicillin allergy and prolonged QTC on EKG (avoid fluoroquinolones). Continue ceftriaxone and add metronidazole. I spoke with Dr. Ware from general surgery, who will see patient in consult tomorrow (due to hypokalemia and rhabdo, I do not think she is a good surgical candidate today, but may be by tomorrow, will treat medically in the meantime). NPO after midnight. - 06/19 Dr. Ware from general surgery saw patient today. Transaminases are improving, may be cholestasis related to dehydration/illness. No surgery at this time, likely not cholecystitis, stop IV antibiotics, ADAT, monitor for symptoms. - 06/20 these continue to improve. F/u with PCP. (6) Cholecystitis, acute: Status: Ruled-out Problem details: As above (7) Leukocytosis: Status: Resolved Problem details: As above (8) History of opioid use: Status: Chronic Problem details: On Suboxone / t.i.d., increased 06/18 briefly for pain. Is better now, resume home dosing on discharge. (9) Chronic anxiety: Status: Chronic Problem details: -continue fluoxetine and buspar - abusing daughter's benzodiazepines, 06/20/25 I asked patient to avoid benzodiazepines and counseled her not to take other people's prescription medications. (10) Chronic pain: Status: Chronic Problem details: -suboxone (11) Financially insecure: Status: Acute Problem details: -SW consulted (12) Social isolation: Status: Acute Problem details: -SW consulted (13) Unspecified personality disorder: Status: Chronic Problem details: -borderline/hysteria likely (14) Type 2 diabetes mellitus: Status: Chronic Problem details: diet controlled (15) Sinus bradycardia: Status: Chronic Problem details: Chronic (16) Prolonged Q-T interval on ECG: Status: Acute Problem details: Avoid fluoroquinolones (17) Vertebral fracture: Status: Acute Problem details: CT at the ED showed Slight progression of a mild L2 compression fracture compared to lumbar CT dated 07/08/2024. (18) Hypokalemia: Status: Acute Problem details: - Profound hypokalemia, worsened despite replacement overnight and this morning. I checked a magnesium level this morning which was within normal limits. I suspect she has either been noncompliant with her home potassium, or became depleted over the last day while she was unable to get up from the floor. I am not finding any medications given today that would of contributed to hypokalemia. - 06/19 improving. Start a maintenance replacement of KCl 40mEq BID. Monitor. No evidence of GI loss, not on diuretics or other potassium wasting medications. May be endocrine related. If does not improve, will need outpatient w/u with possible referral to endocrinology or nephrology. - 06/20 K now 3.2 with KCl 40 mEq BID. Will increase to 50 mEq BID and have patient f/u with PCP later this week for recheck and potential further w/u or referral to endocrinology or nephrology. (19) Grief: Status: Acute Problem details: - loss of 16 y/o dog 4 months ago - recommended developing action plan for times of extreme grief or anxiety with breathing exercises, meditation, favorite activities, etc. Also recommended establishing with a therapist or life management teacher and talking with PCP about depression DS: Summary Hospital Course Hospital Course: NOTE TO PCP: Please f/u potassium, liver enzymes, anxiety/grief/depression. May benefit from further w/u of hypokalemia. Per H&P: Jessica Hung is a 60 year old female with past medical history of COPD, history of opioid use disorder and tobacco dependence, diabetes, chronic anxiety and social isolation who presents to the ED after she was found on the ground for unknown period of time. Patient denies alcohol use, she states that she is taking Suboxone. Her urine drug test was positive for benzodiazepines, patient states that the last time she had benzodiazepine was a week ago when she took a pill from her daughter. Patient was drowsy upon my examination and history taking, she denied cardiac, kidney, liver issues. When asked about abdominal pain she said she never had a problem regarding abdominal pain and she was nontender or my exam. At the ED, patient was hemodynamically stable. EKG showed sinus bradycardia and QTC at 5:07 a.m. serum creatinine kinase was elevated more than 12 K. Normal kidney function. Abnormal AST/ALT levels with elevated bilirubin at 2.3. CT head was normal. CT chest abdomen and pelvis showed multiple issues including a left anterior 3rd rib cartilage is fracture. Jessica was treated with IVF for rhabdo and had stable Cr and improvement of CK. Hypokalemia was an issue and required large amounts of potassium for replacement. Cause does not appear to be medication or diet related. Suspect endocrine dysfunction, which can be further w/u as outpatient. K stable here on oral supplementation. Jessica also had elevated transaminases with sludge noted in GB on imaging. Gen surgery consulted and thought this was not acute cholecystitis. Jessica has no c/o RUQ pain today on discharge and able to tolerate regular diet. Elevated transaminases were possibly related to rhabdo, resolving. F/u with PCP. See above for full details. Time Spent with Patient Time attestation: Total time spent providing and/or coordinating discharge services: Today I spent 40 minutes seeing and discharging the patient, reviewing [facility] and [facility] notes/diagnostics/labs, discussing the care plan with our care team that includes social work, PT/OT, pharmacy, RT, snf and documenting my impressions and plan in the medical record. Exam Narrative: Exam Narrative: General: No acute distress. Awake, alert, oriented. Sitting up in a chair working with PT. Oropharynx: Clear. Mucous membranes moist. Cardiovascular: Regular rate and rhythm. No murmurs, gallops, or rubs. Respiratory: Clear to auscultation bilaterally. No wheezes or crackles. Extremities: No lower extremity edema. Const: Vital Signs, click to edit/add: Vital Signs - 24 hr 06/19/25 15:00 06/19/25 15:00 06/19/25 20:13 Temperature 97.6 F 98.5 F Pulse Rate Pulse Rate [Left R adial] Pulse Rate [Right Pulse Oximeter] 61 61 66 Respiratory Rate 18 18 18 Blood Pressure [Le ft Arm] 133/67 132/61 Blood Pressure [Ri ght Arm] Pulse Oximetry 95 96 Oxygen Delivery Me thod Room Air Room Air 06/19/25 23:00 06/19/25 23:04 06/19/25 23:47 Temperature 97.2 F L Pulse Rate 59 L Pulse Rate [Left R adial] 86 Pulse Rate [Right Pulse Oximeter] 60 60 Respiratory Rate 16 16 Blood Pressure [Le ft Arm] 112/58 L Blood Pressure [Ri ght Arm] Pulse Oximetry 94 Oxygen Delivery Me thod Room Air 06/20/25 03:00 06/20/25 07:00 06/20/25 08:17 Temperature 97.2 F L 97.6 F Pulse Rate 97 Pulse Rate [Left R adial] Pulse Rate [Right Pulse Oximeter] 71 66 Respiratory Rate 18 14 Blood Pressure [Le ft Arm] 167/98 H Blood Pressure [Ri ght Arm] 122/58 L Pulse Oximetry 96 95 Oxygen Delivery Me thod Room Air Room Air 06/20/25 08:45 06/20/25 11:00 Temperature 97.6 F Pulse Rate Pulse Rate [Left R adial] Pulse Rate [Right Pulse Oximeter] 66 68 Respiratory Rate 14 14 Blood Pressure [Le ft Arm] 149/71 H Blood Pressure [Ri ght Arm] Pulse Oximetry 95 Oxygen Delivery Me thod DS: Data Data Completed and Pending Completed studies during hospitalization: 06/17/2025 EKG: Sinus bradycardia, 52 beats per minute, nonspecific ST and T- wave abnormality, prolonged QT. 06/18/2025 9:06 a.m. EKG: Sinus bradycardia, 50 beats per minute, nonspecific ST abnormality, prolonged QT. 06/18/2025 8:22 p.m. EKG: Normal sinus rhythm, 74 beats per minute, prolonged QT. Ordering Physician: Heather Sykes MD Date of Service: 06/17/25 Procedure(s): US gallbladder Accession Number(s): [id number] cc: Heather Sykes MD; Provider,Not a Local~ For Patients: As a result of the Century Cures Act, medical imaging exams and procedure reports are released immediately into your electronic medical record. You may view this report before your referring provider. If you have questions, please contact your health care provider. INDICATION: Right upper quadrant pain. TECHNIQUE: Limited right upper quadrant ultrasound examination of the abdomen was performed. Grayscale and color Doppler images were obtained. COMPARISON: CT chest abdomen pelvis 06/17/2025. FINDINGS: Liver: Normal in size and contour. The hepatic echotexture is normal. No suspicious hepatic masses. Gallbladder: Gallbladder is normal in size. Biliary sludge. No cholelithiasis. Sonographic Escalera sign was positive. Common bile duct: Measures 10 mm. Pancreas: Visualized portions unremarkable. Right kidney: Normal in size. No hydronephrosis. No suspicious renal masses or obstructive urinary calculus. Vascular: Visualized aorta and IVC are unremarkable. IMPRESSION: Biliary sludge with dilated common bile duct and positive sonographic Escalera`s sign, equivocal for acute cholecystitis. Consider nuclear medicine HIDA scan or MRCP for further evaluation. Dictated by Arpit Smith MD @ 06/17/2025 5:40:26 PM (Electronically Signed) Ordering Physician: Lars Johnson M.D. Date of Service: 06/17/25 Procedure(s): CT cervical spine wo con Accession Number(s): [id number] cc: Provider,Not a Local; Lars Johnson M.D.~ For Patients: As a result of the Cures Act, medical imaging exams and procedure reports are released immediately into your electronic medical record. You may view this report before your referring provider. If you have questions, please contact your health care provider. INDICATION: Fall. TECHNIQUE: CT cervical spine without contrast. COMPARISON: 07/08/2024. FINDINGS: Vertebrae: Mild lordosis. There are no fractures or suspicious bony lesions. Discs and facet joints: Mild degenerative disc disease. Extraspinal findings: There are emphysematous changes within the visualized apices. IMPRESSION: No acute osseous abnormality. Please note that all CT scans at this facility use dose modulation, iterative reconstruction, and/or weight-based dosing when appropriate to reduce radiation dose to as low as reasonably achievable. Dictated by Donald Kate MD @ 06/17/2025 12:49:43 PM (Electronically Signed) Ordering Physician: Lars Johnson M.D. Date of Service: 06/17/25 Procedure(s): CT chest abdomen pelv wo con Accession Number(s): [id number] cc: Provider,Not a Local; Lars Johnson M.D.~ For Patients: As a result of the Cures Act, medical imaging exams and procedure reports are released immediately into your electronic medical record. You may view this report before your referring provider. If you have questions, please contact your health care provider. INDICATION: Fall with lower back pain. TECHNIQUE: CT chest, abdomen and pelvis acquired without contrast. COMPARISON: Lumbar spine CT dated 07/08/2024. FINDINGS: CHEST: Indeterminate mild subpleural ground-glass and reticulation is noted within anterior left upper lobe. Additional note is made other areas of mild peripheral ground-glass some of which contain reticulation (for reference left thyroid lobe 75). No consolidation. No pleural effusion or pneumothorax. No anterior mediastinal hematoma. Indeterminate mediastinal lymphadenopathy. For reference is a 12 millimeter precarinal lymph node (41). No definite hilar lymphadenopathy. The heart is normal in size with coronary calcification. Trace pericardial effusion. There is motion within the aortic root. The aorta appears to be nonaneurysmal. Subcentimeter axillary lymph nodes are noted. No chest wall mass. No significant inflammatory fat stranding. Extensive instrumentation within visualized right humerus which exerts streak artifact. There may be a non displaced fracture at the anterior left 3rd costal cartilage junction (45). this is seen within the area of ground-glass as well. ABDOMEN AND PELVIS: The liver is unremarkable. No perihepatic fluid or stranding. The gallbladder is partially distended. No biliary ductal dilatation. The spleen is unremarkable. The pancreas is unremarkable not well evaluated on a noncontrast CT. The adrenal glands are grossly normal. The kidneys are without hydronephrosis. Stone/renovascular calcifications are noted. The urinary bladder is partially distended. A large amount of stool is noted within the rectum. No definitive evidence of stercoral colitis. The upstream colon is nondilated and contains stool. The stomach is nondilated. The small bowel is nondilated without evidence of a small-bowel obstruction. No free air. No ascites. No evidence of acute traumatic hernia. No significant mesenteric stranding. The uterus is unremarkable. Extensive atherosclerosis is seen within nondilated aorta. Soft tissue calcifications are seen within the gluteal region bilaterally likely sequelae of fat necrosis. There is mild stranding within the gluteal regions which appears to be bilateral although slightly asymmetric on the left. No organized hematoma is seen. Bone windows demonstrate slight progression of chronic L2 compression fracture compared to 07/08/2024 with a proximally 30 percent loss of height anteriorly. An L1 compression fracture is unchanged. L4-5 intermediate diffusion. IMPRESSION: 1. Evaluation for acute traumatic injury is limited by lack of intravenous contrast. 2. Likely acute fracture of the left anterior 3rd costal cartilage junction. Recommend correlation with point tenderness. 3. Areas of mild peripheral ground-glass and reticulation within the lungs. This is greatest within the anterior left upper lobe which is seen at the region of the presumed rib fracture. The imaging findings are favored to represent a combination of left lung contusion and chronic bilateral lung scarring or atypical pneumonia. A short-term interval follow-up chest CT is recommended in 1 month. 4. Subtle asymmetric stranding within the left gluteal region. No organized hematoma. 5. Slight progression of a mild L2 compression fracture compared to lumbar CT dated 07/08/2024. Please note that all CT scans at this facility use dose modulation, iterative reconstruction, and/or weight-based dosing when appropriate to reduce radiation dose to as low as reasonably achievable. Dictated by Donald Kate MD @ 06/17/2025 1:03:33 PM (Electronically Signed) Ordering Physician: Lars Johnson M.D. Date of Service: 06/17/25 Procedure(s): CT head/brain wo con Accession Number(s): [id number] cc: Provider,Not a Local; Lars Johnson M.D.~ For Patients: As a result of the Century Cures Act, medical imaging exams and procedure reports are released immediately into your electronic medical record. You may view this report before your referring provider. If you have questions, please contact your health care provider. INDICATION: Fall with possible head trauma. TECHNIQUE: CT head without contrast. COMPARISON: 07/08/2020. FINDINGS: Brain: Examination limited by motion. No gross intra or extra-axial fluid collection, mass or edema. Mild periventricular white matter hypoattenuation. No hydrocephalus. Other: No displaced calvarial fracture. Visualized portions of the orbits, mastoids and paranasal sinuses are unremarkable. IMPRESSION: Examination is limited by motion. No gross acute abnormality is seen. Please note that all CT scans at this facility use dose modulation, iterative reconstruction, and/or weight-based dosing when appropriate to reduce radiation dose to as low as reasonably achievable. Dictated by Donald Kate MD @ 06/17/2025 12:47:05 PM (Electronically Signed) Labs on day of discharge: Labs from last 24 hours 06/20/25 06/19/25 06:05 12:21 WBC 6.74 RBC 3.43 L Hgb 10.3 L Hct 29.8 L MCV 87 MCH 30 MCHC 35 RDW Coeff of Paty 13.1 Plt Count 231 Neut % (Auto) 36.3 L Lymph % (Auto) 51.5 H [place] % (Auto) 5.8 Eos % (Auto) 5.9 Baso % (Auto) 0.4 Neut # (Auto) 2.40 Lymph # (Auto) 3.50 H [place] # (Auto) 0.40 Eos # (Auto) 0.40 Baso # (Auto) 0.03 Abs Immat Gran (auto) 0.01 Imm/Tot Granulo (auto) 0.1 Sodium 142 Potassium 3.2 L 3.3 L Chloride 118 H Carbon Dioxide 23 Anion Gap 1 L BUN 6 L Creatinine 0.7 Estimated Creat Clear 46.73 Estimated GFR 98 Glucose 85 Calcium 8.5 Total Bilirubin 0.6 Direct Bilirubin 0.2 AST 106 H ALT 109 H Alkaline Phosphatase 89 Total Creatine Kinase 680 H Total Protein 5.7 L Albumin 2.7 L Discharge Plan Discharge Disposition: Home, Self-Care Date of Admission: 06/17/25 15:50 Attending Provider on Discharge: Maggie Paulson Consulting Providers: Erika Ware Primary Care Provider: Provider,Not a Local Condition: Stable Anticipated Discharge Date/Time: 06/20/25 12:00 Discharge Medications: New acetaminophen 500 mg Tablet 1,000 mg PO 3XD PRN (Reason: Pain) Qty: 100 0RF Continued furosemide 20 mg tablet 20 mg PO DAILY PRN Rx Instructions: for lower extremity swelling atorvastatin [Lipitor] 40 mg tablet 40 mg PO HS buspirone 10 mg tablet 10 mg PO TID fluoxetine 20 mg capsule 60 mg PO DAILY hydroxyzine HCl 25 mg tablet 25 - 50 mg PO 3XD PRN fluticasone propion-salmeterol 100-50 mcg/dose blister with device 1 ea inhalation BID buprenorphine-naloxone 8-2 mg tablet, sublingual 1 tab sublingual 3XD trazodone 100 mg tablet 200 mg PO HS aspirin 81 mg tablet 81 mg PO DAILY lisinopril 5 mg tablet 5 mg PO DAILY omeprazole 20 mg capsule,delayed release(DR/EC) 20 mg PO QPM albuterol sulfate 90 mcg/actuation HFA aerosol inhaler 2 inh inhalation Q4H PRN ipratropium-albuterol 0.5 mg-3 mg(2.5 mg base)/3 mL solution for nebulization 3 ml inhalation Q6H PRN Changed potassium chloride [Klor-Con M20] 20 mEq tablet,ER particles/crystals 40 meq PO BID Qty: 120 0RF Rx Instructions: takes with furosemide when needed ibuprofen 200 mg tablet 800 mg PO TID PRNQty: 90 0RF Discharge Orders: Discharge Order (Routine); Ordered 06/20/25 Ordered By: Maggie Paulson Additional Instructions: Start home PT and OT, orders sent. Activity Level: No Restrictions Discharge Diet: Regular Follow Up Appointments: Provider,Not a Local [Primary Care Provider, Family Practice] Referral Note: or Friday of this week with BMP, liver enzymes Forms: [employer] Info Instructions
[2025-06-20 11:45] VITALS: BMI 24.0
--- NOTE | 2025-06-20 14:51 | PC.SOCIAL ---
Addendum entered by MAHESH Anaya 06/20/25 16:33: MAJENIFER report made on 06/20/25 reference #[id number]. Original Note: Discharge planning: Met with pt who states she plans to return to her own apartment where she lives alone at discharge. Pt denies any falls at home prior to this fall since a fall 6 or 7 months ago. Pt admits she does not use her walker at home regularly. Pt states she has two walkers and will use them when discharged home. Pt has been walking with the walker in the hospital. Pt denies any alcohol use at home. Pt's tox screen was positive for Benzodiazepines at admit. when questioned on this, pt admits she took one Xanax pill from her daughter and used that the day she fell at home. Pt denies having any more Xanax at home and states she will not use anything that will reduce her ability to stay safely at home. Pt agreed to a senior living care assessment by the [facility] and this referral was made by social media senior associate. Pt plans to use her walker at home and has already reached out to a company about their medical alert system. She will follow up with arranging this from home. Pt is agreeable to home health follow up by PT and OT. Resource list of available home care agencies was provided to patient. Pt requested home care be arranged with any agency who can accept her insurance. Received call from Sugar Sepulveda [facility] who shared that she received a report and is following up on concerns. Secure emailed requested infomation to Sugar Sepulveda at [facility]. layup worker to follow up as needed.
--- NOTE | 2025-06-20 18:20 | PC.NURSE ---
[id number]: Pt. is AOx4. Pt is pleasant and SBA w/ GB & walker. Pt. SP02 stable on RA. Pt. reports tolerating chest pain and denies SOB. Nicotine patch removed prior to d/c. Pt. sister p/u, IV removed before d/c. Wheeled out in stable condition.
--- NOTE | 2025-06-21 16:04 | PC.SOCIAL ---
Discharge planning: cash office worker contacted the following home care agencies today with the following results: 1.) [facility] Declined due to being at capacity in pt's service area. 2.) [facility] Declined due to not having PT available right now. 3.) [facility]: Declined due to being out of pt's service area. 4.) [facility]: Declined due to saying that the pt has too high of psycho-social needs, which would be too challenging for them. 5.) [facility] Declined due to being out of pt's service area. 6.) [facility]: Declined due to being at capacity in this area right now. 7.) [facility]: Faxed referral to #[phone]. Have not gotten a response back yet. 8.) [facility]: Faxed referral to #[phone]. Have not gotten a response back yet. Social work to follow-up as needed.
--- NOTE | 2025-06-22 15:34 | PC.SOCIAL ---
Addendum entered by TAMERA Rodgers 06/22/25 16:33: Discharge planning: [facility] is not able to accept the pt for home care services due to being out of the service area for [place]. Social work to follow-up as needed. Addendum entered by TAMERA Rodgers 06/22/25 16:24: Discharge planning: clerical production worker heard back from [facility] and they stated they are not able to accept the pt for home care services due to the pt's address being out of their service area. Social work to follow-up as needed. Original Note: Discharge planning: clerical production worker has not heard back from [facility] on whether or not they can accept the pt for home care services. clerical production worker did hear back from [facility] via voice message stating that they are not able to accept the pt for services. clerical production worker then reached out to the following facilities today with the listed results: 1.) [facility]: Due to staffing they are not able to serve [place] right now. 2.) [facility]: Faxed referral to #[phone]. Waiting on a response. 3.) [facility]: Faxed referral to #[phone]. Waiting on a response. Social work to follow-up as needed.
--- NOTE | 2025-06-23 15:30 | PC.SOCIAL ---
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 Social work to follow-up as needed.
== END 2025-06-20 14:34 | disposition home or self-care (01) | DRG 558 ==
LOC: ED 13:26 → MEDSURG 15:55
PROVIDERS: Family Medicine; Admitting Provider Student in an Organized Health Care Education/Training Program; Emergency Provider Internal Medicine; PCP Nurse Practitioner; Visit Provider Student in an Organized Health Care Education/Training Program
DX: M62.82 Rhabdomyolysis (principal); S22.32XA Fracture of one rib, left side, initial encounter for closed fracture; S32.029A Unspecified fracture of second lumbar vertebra, initial encounter for closed fracture; K81.0 Acute cholecystitis; E11.9 Type 2 diabetes mellitus without complications; E87.6 Hypokalemia; F11.10 Opioid abuse, uncomplicated; F13.10 Sedative, hypnotic or anxiolytic abuse, uncomplicated; R00.1 Bradycardia, unspecified; R94.31 Abnormal electrocardiogram [ECG] [EKG]; Z79.891 Long term (current) use of opiate analgesic; J44.9 Chronic obstructive pulmonary disease, unspecified; F43.21 Adjustment disorder with depressed mood; G89.29 Other chronic pain; F60.9 Personality disorder, unspecified; F41.9 Anxiety disorder, unspecified; Z60.4 Social exclusion and rejection; Z59.9 Problem related to housing and economic circumstances, unspecified; Z59.82 Transportation insecurity; W19.XXXA Unspecified fall, initial encounter; Y92.009 Unspecified place in unspecified non-institutional (private) residence as the place of occurrence of the external cause; Z79.82 Long term (current) use of aspirin; F17.210 Nicotine dependence, cigarettes, uncomplicated; Z94.5 Skin transplant status
CPT/HCPCS: 36415; 70450; 71250; 72125; 74176; 76705; 80048; 80053; 80076; 80143; 80179; 80306; 81001; 81003; 82077; 82550; 82962; 83605; 83735; 84100; 84132; 84484; 85025; 85610; 85730; 86140; 93005; 94640; 97110; 97116; 97162; 97166; 97530; 97535; 99284; 99285; A9270; J0574; J0696; J1644; J1836; J3480; J7030; J7042; J7626; S4990